=== PATIENT | female | born 2000 | race Caucasian/White ===

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

== ENCOUNTER 2020-03-07 | Emergency (ER) | payer OTHER ==
--- NOTE | 2020-03-07 02:38 | ED Physician Documentation ---
History of Present Illness - Stated complaint Stated Complaint: DIZZY - Chief complaint Chief Complaint: Neuro - History obtained from History obtained from: Patient - Additonal information Additional information: Patient comes emergency department chief complaint of dizziness and I am afraid I have Covid. She states that she has had some nausea and intermittent episodes of dizziness today. She states it feels like a heavy, tense feeling in the front of her head, and she feels a brief sensation of lightheadedness and slight spinning. Patient denies any vomiting. She states that she has not had any fevers or chills. She states her looked up dizziness and found that it could be a sign of Covid and so she decided to come in. She denies cough, shortness of breath, or chest pain. The patient does smoke. She states she does not sleep very well and often goes to bed late. She denies any other complaints at this time. Review of Systems Ten Systems: 10 systems reviewed and negative Constitutional: reports: Reviewed and negative Eyes: reports: Reviewed and negative Ears: reports: Reviewed and negative Nose: reports: Reviewed and negative Throat: reports: Reviewed and negative Cardiac: reports: Reviewed and negative Respiratory: reports: Reviewed and negative GI: reports: Nausea. 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 Psych: Anxiety - Past Surgical History Past Surgical History: Yes Ortho: Other - Present Medications Home Medications: Ambulatory Orders Medication Instructions Recorded Confirmed No Known Home Medications 03/07/20 03/07/20 - Allergies Allergies/Adverse Reactions: Allergies Allergy/AdvReac Type Severity Reaction Status Date / Time No Known Drug Allergies Allergy Verified 03/07/20 01:51 - Social History Does the pt smoke?: Yes Smoking Status: Current every day smoker Does the pt drink ETOH?: Yes Does the pt have substance abuse?: No - Immunizations Immunizations are current?: Yes - POLST Patient has POLST: No PD ED PE NORMAL - Vitals Vital signs reviewed: Yes - General General: Alert and oriented X 3, No acute distress - HEENT HEENT: Atraumatic, PERRL, EOMI, Moist mucous membranes - Neck Neck: Supple, no meningeal sign - Cardiac Cardiac: RRR, No murmur, Strong equal pulses - Respiratory Respiratory: No respiratory distress, Clear bilaterally - Abdomen Abdomen: Soft, Non tender, Non distended - Derm Derm: Warm and dry - Extremities Extremities: No deformity - Neuro Neuro: Alert and oriented X 3 - Psych Psych: Normal mood, Normal affect Results - Vitals Vitals: Vital Signs - 24 hr 03/07/20 01:40 Temperature 36.6 C Heart Rate 109 H Respiratory 16 Rate Blood Pressure 123/74 O2 Saturation 97 Oxygen O2 Source Room air PD MEDICAL DECISION MAKING - ED course Complexity details: considered differential, d/w patient ED course: The patient was very well-appearing, and I did discuss with her that the likelihood of her symptoms being cysts can Walter to Covid is very low. The patient has no cough, fever, shortness of breath, myalgias, or any symptoms of illness, other than the nausea and occasional episodes of dizziness. She has had quite a bit of anxiety lately and has had a lot of tension in her neck and tension headaches, and we have discussed ways to combat this at home. In particular, the patient has quite a few unhealthy lifestyle habits, and we have discussed improving sleep hygiene, nutritional intake, water intake, and exercise, as well as quitting smoking. I discussed with the patient that we could do blood work here, though I suspect it will be unremarkable. The patient has declined this and would like to go home and get some sleep. We have discussed follow-up with her primary care physician, as well as the usual indications for return. Departure - Departure Disposition: 01 Home, Self Care Clinical Impression: Dizziness Condition: Stable Instructions: ED Dizziness [facility] Comments: There is no sign of an emergent condition today. We have discussed getting blood work done, and you have opted to wait on this, which is fine. To help with your headaches, dizziness, and anxiety, please focus on taking good care of yourself and paying attention to basic health principles. These include getting to bed early to improve the restorative nature of your sleep; eating lesser amounts of processed foods and more fruits and vegetables with a high nutrient content; getting some exercise each day, even if it is a 30-minute walk; drinking plenty of water, ideally 8 to 10 cups/day; and quitting smoking. Finding other constructive outlets for stress and anxiety will help you to not rely on smoking to deal with stress. If you have further concerns, you may follow-up with your primary care physician. If you develop fever, cough, shortness of breath and body aches, these are potential signs of Covid, and should be further evaluated. There is no evidence that you have Covid at this point in time.
== END 2020-03-07 02:46 | disposition home or self-care (01) ==
CPT/HCPCS: 99281; 99284

== ENCOUNTER 2020-03-27 00:12 | Emergency (ER) | payer OTHER ==
[2020-03-27 00:27] VITALS: BP 112/62
[2020-03-27 00:35] LABS: MUDS CUTOFF CONCENTRATIONS CUTOFF CONC BELOW:
[2020-03-27 00:36] LABS: BILIRUBIN,URINE NEGATIVE (NEGATIVE); GLUCOSE, URINE (UA) NEGATIVE (NEGATIVE); KETONES,URINE (UA) NEGATIVE (NEGATIVE); LEUKOCYTE ESTERASE, URINE NEGATIVE (NEGATIVE); NITRITE,URINE NEGATIVE (NEGATIVE); OCCULT BLOOD,URINE NEGATIVE (NEGATIVE); PROTEIN,URINE NEGATIVE (NEGATIVE); UROBILINOGEN,URINE 1 (NORMAL) E.U./dL (NORMAL)
[2020-03-27 00:39] LABS: CLARITY,URINE CLEAR (CLEAR)
[2020-03-27 00:40] LABS: HCG UR QUAL POSITIVE
[2020-03-27 00:48] LABS: AMPHETAMINE SCREEN,URINE NEGATIVE (NEGATIVE); BENZODIAZEPINES SCREEN, URINE NEGATIVE (NEGATIVE); COCAINE SCREEN URINE NEGATIVE (NEGATIVE); METHADONE SCREEN, URINE NEGATIVE (NEGATIVE); METHAMPHETAMINES SCREEN, URINE NEGATIVE (NEGATIVE); OPIATE SCREEN, URINE NEGATIVE (NEGATIVE); OXYCODONE SCREEN, URINE NEGATIVE (NEGATIVE); PROPOXYPHENE SCREEN, URINE NEGATIVE (NEGATIVE); TRICYCLIC ANTIDEPRESSANT,URINE NEGATIVE (NEGATIVE)
[2020-03-27 01:14] LABS: BASOPHILS # (AUTO) 0.1 10^3/uL (0.0-0.1); BASOPHILS % (AUTO) 0.4 %; EOSINOPHILS # (AUTO) 0.2 10^3/uL (0.0-0.7); HGB - HEMOGLOBIN 12.5 g/dL (12.0-16.0); LYMPHOCYTES # (AUTO) 2.4 10^3/uL (1.5-3.5); LYMPHOCYTES % (AUTO) 20.7 %; MEAN CORPUSCULAR HEMOGLOBIN 27.7 pg (27.0-31.0); MEAN PLATELET VOLUME 9.3 fL (7.9-10.8); MONOCYTES % (AUTO) 8.6 %; PLT - PLATELET COUNT 319 10^3/uL (130-450); RED BLOOD COUNT 4.51 10^6/uL (4.20-5.40); WHITE BLOOD COUNT 11.8 x10^3/uL (4.8-10.8)
--- NOTE | 2020-03-27 01:15 | ED Physician Documentation ---
PD HPI MHE - Stated complaint Stated Complaint: SI - Chief complaint Chief Complaint: MHE - History obtained from History obtained from: Patient - History of Present Illness Primary symptom: Depression, Anxiety Timing - onset: How many months ago (4) Contributing factors: Family, Sig other, Other () Similar symptoms before: Diagnosis (anxiety and depression) Recently seen: Not recently seen - Additional information Additional information: 19-year-old 2 para 0 female who has had a therapeutic last summer has a history of anxiety and depression and she has had increase in her anxiety recently and her depression. She denies suicidal or homicidal ideation. She does feel that she does not need to live anymore because nobody wants her. She is currently about 6 weeks with her second and she gives a history that she is living in a trailer with her boyfriend on her parents property. She feels that her stepfather is irritated that she is around at all and her mother does not treat her well either. She states that her mother does like her boyfriend and is supportive of their relationship and the stepfather is irritated. She relates that her boyfriend has had some trouble with meth and he has cheated on her. She is still invested in the relationship. She indicates that she feels the this past summer was terminated at the insistence of her family and she feels she is depressed and anxious about this. Review of Systems Constitutional: denies: Fever Eyes: denies: Decreased vision Ears: reports: Ear pain Nose: reports: Congestion Throat: denies: Sore throat Cardiac: denies: Palpitations Respiratory: denies: Dyspnea, Cough GI: denies: Abdominal Pain, Nausea, Vomiting, Constipation, Diarrhea : denies: Dysuria, Frequency Skin: denies: Rash Musculoskeletal: denies: Neck pain, Back pain, Extremity pain Neurologic: denies: Generalized weakness, Focal weakness, Numbness Psychiatric: reports: Depressed, Anxiety. 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 Psych: Anxiety - Past Surgical History Past Surgical History: Yes Ortho: Other - Present Medications Home Medications: Ambulatory Orders Medication Instructions Recorded Confirmed No Known Home Medications 03/07/20 03/27/20 - Allergies Allergies/Adverse Reactions: Allergies Allergy/AdvReac Type Severity Reaction Status Date / Time No Known Drug Allergies Allergy Verified 03/27/20 00:17 - Social History Does the pt smoke?: Yes Smoking Status: Current every day smoker Does the pt drink ETOH?: Yes Does the pt have substance abuse?: No - Immunizations Immunizations are current?: Yes - POLST Patient has POLST: No PD ED PE NORMAL - Vitals Vital signs reviewed: Yes (tachy ) - General General: Alert and oriented X 3, No acute distress, Well developed/nourished - HEENT HEENT: Atraumatic, PERRL, EOMI, Ears normal, Moist mucous membranes, Pharynx benign, Dentition benign - Neck Neck: Supple, no meningeal sign, No bony TTP - Cardiac Cardiac: RRR, No murmur - Respiratory Respiratory: No respiratory distress, Clear bilaterally - Abdomen Abdomen: Normal bowel sounds, Soft, Non tender, Non distended - Back Back: No CVA TTP, No spinal TTP - Derm Derm: Normal color, Warm and dry, No rash - Extremities Extremities: No deformity, No edema - Neuro Neuro: Alert and oriented X 3, final inspector and tester 2-12 intact, No motor deficit, No sensory deficit, Normal speech Eye Opening: Spontaneous Motor: Obeys Commands Verbal: Oriented GCS Score: 15 - Psych Psych: Normal mood, Normal affect Results - Vitals Vitals: Vital Signs - 24 hr 03/27/20 03/27/20 00:17 03:12 Temperature 36.8 C Heart Rate 117 H Respiratory 20 18 Rate Blood Pressure 112/62 O2 Saturation 98 100 Oxygen O2 Source Room air - Labs Labs: Laboratory Tests 03/27/20 03/27/20 03/27/20 00:24 00:24 01:11 WBC 11.8 H RBC 4.51 Hgb 12.5 Hct 37.9 MCV 84.0 MCH 27.7 MCHC 33.0 RDW 13.0 Plt Count 319 MPV 9.3 Neut # (Auto) 8.0 H Lymph # (Auto) 2.4 [place] # (Auto) 1.0 Eos # (Auto) 0.2 Baso # (Auto) 0.1 Absolute Nucleated RBC 0.00 Nucleated RBC % 0.0 Sodium Potassium Chloride Carbon Dioxide Anion Gap BUN Creatinine Estimated GFR (MDRD) Glucose Calcium Total Bilirubin AST ALT Alkaline Phosphatase Total Protein Albumin Globulin Albumin/Globulin Ratio Lipase HCG, Quant Urine Color YELLOW Urine Clarity CLEAR Urine pH 6.0 Ur Specific [place] 1.020 Urine Protein NEGATIVE Urine Glucose (UA) NEGATIVE Urine Ketones NEGATIVE Urine Occult Blood NEGATIVE Urine Nitrite NEGATIVE Urine Bilirubin NEGATIVE Urine Urobilinogen 1 (NORMAL) Ur Leukocyte Esterase NEGATIVE Ur Microscopic Review NOT INDICATED Urine Culture Comments NOT INDICATED Urine HCG, Qual POSITIVE Urine Opiates Screen NEGATIVE Ur Oxycodone Screen NEGATIVE Urine Methadone Screen NEGATIVE Ur Propoxyphene Screen NEGATIVE Ur Barbiturates Screen NEGATIVE Ur Tricyclics Screen NEGATIVE Ur Phencyclidine Scrn NEGATIVE Ur Amphetamine Screen NEGATIVE U Methamphetamines Scrn NEGATIVE U Benzodiazepines Scrn NEGATIVE Urine Cocaine Screen NEGATIVE U Cannabinoids Screen NEGATIVE Ethyl Alcohol 03/27/20 03/27/20 03/27/20 01:11 01:11 01:11 WBC RBC Hgb Hct MCV MCH MCHC RDW Plt Count MPV Neut # (Auto) Lymph # (Auto) [place] # (Auto) Eos # (Auto) Baso # (Auto) Absolute Nucleated RBC Nucleated RBC % Sodium 138 Potassium 3.5 Chloride 104 Carbon Dioxide 22 Anion Gap 12.0 BUN 15 Creatinine 0.8 Estimated GFR (MDRD) 92 Glucose 100 Calcium 8.9 Total Bilirubin 2.0 H AST 23 ALT 27 Alkaline Phosphatase 59 Total Protein 7.3 Albumin 4.0 Globulin 3.3 Albumin/Globulin Ratio 1.2 Lipase 32 HCG, Quant 1833.00 Urine Color Urine Clarity Urine pH Ur Specific [place] Urine Protein Urine Glucose (UA) Urine Ketones Urine Occult Blood Urine Nitrite Urine Bilirubin Urine Urobilinogen Ur Leukocyte Esterase Ur Microscopic Review Urine Culture Comments Urine HCG, Qual Urine Opiates Screen Ur Oxycodone Screen Urine Methadone Screen Ur Propoxyphene Screen Ur Barbiturates Screen Ur Tricyclics Screen Ur Phencyclidine Scrn Ur Amphetamine Screen U Methamphetamines Scrn U Benzodiazepines Scrn Urine Cocaine Screen U Cannabinoids Screen Ethyl Alcohol < 5.0 PD MEDICAL DECISION MAKING - ED course Complexity details: reviewed results, re-evaluated patient, considered differential, d/w patient ED course: 19-year-old female presents to the emergency department with depression and anxiety and she denies any suicidal or homicidal ideation. She has a stressful living situation at home has a recent therapeutic and post depression as well as regret and she is currently . She does have an appointment to see her MANUFACTURING COORDINATOR doctor and her quantitative hCG is still low. It is at 1833 today. The patient initially consents to the idea of doing telepsych to consider recommendations for medications and counseling. The patient was in the emergency department for several hours and then decided she had to leave urgently to attend to things at home. She indicates she will follow up with her primary at her MANUFACTURING COORDINATOR doctor for referral to counseling. The patient appears safe for discharge. She is voluntary. Departure - Departure Disposition: Home, Self Care Clinical Impression: Anxiety Depression Qualifiers: Depression Type: depression during Trimester: first trimester Qualified Code(s): O99.341 - Other mental disorders complicating , first trimester Condition: Stable Instructions: ED Stress React, ED Depression, ED Panic Attack Follow-Up: Wilbert Brian ARNP [Primary Care Provider] - Comments: Follow-up with your MANUFACTURING COORDINATOR doctor as previously planned. With depression and anxiety especially during treatment options are less and counselling is recommended. Ask your primary care doctor and or your MANUFACTURING COORDINATOR doctor to recommend a counsellor. Discharge Date/Time: 03/27/20 03:12
[2020-03-27 01:27] LABS: ALBUMIN/GLOBULIN RATIO 1.2 (1.0-2.2); CALCIUM 8.9 mg/dL (8.5-10.3); CREATININE 0.8 mg/dL (0.4-1.0); TOTAL PROTEIN 7.3 g/dL (6.7-8.2)
== END 2020-03-27 03:12 | disposition home or self-care (01) ==
LOC: ED 00:12
DX: O99.341 Other mental disorders complicating pregnancy, first trimester (principal); F41.9 Anxiety disorder, unspecified; F32.9 Major depressive disorder, single episode, unspecified; O99.331 Smoking (tobacco) complicating pregnancy, first trimester; F17.200 Nicotine dependence, unspecified, uncomplicated; Z3A.01 Less than 8 weeks gestation of pregnancy
CPT/HCPCS: 36415; 80053; 80306; 80320; 81001; 81003; 81025; 83690; 84702; 85025; 87086; 99283

== ENCOUNTER 2020-04-03 00:55 | Emergency (ER) | payer OTHER ==
--- NOTE | 2020-04-03 01:49 | ED Physician Documentation ---
History of Present Illness - Stated complaint Stated Complaint: DIZZINESS/F - Chief complaint Chief Complaint: General - History obtained from History obtained from: Patient - History of Present Illness Timing: How many hours ago (1) Pain level now: 0 Improved by: no ameliorating factors Worsened by: no exacerbating factors - Additonal information Additional information: patient was T+R from ED several hours ago after w/u for vaginal bleeding in . She is with a previous elective , currently approximately 6 weeks . Her testing at included normal CBC, BMP, UA, LFT (except 1.9 bilirubin). Blood type B+. US showed "intrauterine fluid collection, cyst or early gestational sac versus pseudogestational sac" (notes from ED visit faxed to me and reviewed by me). Discharged with threatened . Patient says she was instructed to return to ED if she developed lightheadedness. 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 She has not had worsening vaginal bleeding or worsening cramping pain. Review of Systems Constitutional: denies: Fever, Chills, Sweats Cardiac: reports: Reviewed and negative Respiratory: reports: Reviewed and negative : reports: Vaginal bleeding, Now EGA (6 weeks although US from ED discordant with this). 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, Other : None HEENT: None Psych: Anxiety Musculoskeletal: None Derm: None Other Past Medical History: Frequent bacterial vaginosis - Past Surgical History Past Surgical History: Yes Ortho: Other - Present Medications Home Medications: Ambulatory Orders Medication Instructions Recorded Confirmed No Known Home Medications 03/07/20 04/03/20 - Allergies Allergies/Adverse Reactions: Allergies Allergy/AdvReac Type Severity Reaction Status Date / Time No Known Drug Allergies Allergy Verified 04/03/20 01:12 - Social History Does the pt smoke?: No Smoking Status: Former smoker Does the pt drink ETOH?: Yes Does the pt have substance abuse?: No - Immunizations Immunizations are current?: Yes - POLST Patient has POLST: No PD ED PE NORMAL - Vitals Vital signs reviewed: Yes - General General: Alert and oriented X 3, No acute distress, Well developed/nourished - HEENT HEENT: Moist mucous membranes - Cardiac Cardiac: RRR, No murmur - Respiratory Respiratory: No respiratory distress, Clear bilaterally - Abdomen Abdomen: Soft, Non tender Results - Vitals Vitals: Vital Signs - 24 hr 04/03/20 04/03/20 01:08 02:30 Temperature 37.1 C 36.8 C Heart Rate 99 78 Respiratory 18 16 Rate Blood Pressure 115/59 L 112/60 O2 Saturation 98 100 Oxygen O2 Source Room air PD MEDICAL DECISION MAKING - ED course Complexity details: reviewed old records (records from ED faxed and reviewed by me. ), considered differential, d/w patient ED course: patient is in NAD. she has normal vital signs, unremarkable exam, and had w/u several hours ago as I noted in HPI. Repeat testing not indicated at this time. She does not describe vertigo and no elements of H+P suggest dehydration. Patient is comfortable with no testing at this time as well as d/c home, will return if worse, will f/u with her darkroom technician next available appointment Departure - Departure Disposition: Home, Self Care Clinical Impression: Lightheadedness Condition: Good Instructions: ED Dizziness UKO Follow-Up: Wilbert Brian ARNP [Primary Care Provider] - Discharge Date/Time: 04/03/20 02:37
[2020-04-03 02:39] VITALS: BP 112/60
== END 2020-04-03 02:37 | disposition home or self-care (01) ==
LOC: ED 00:55
DX: O99.891 Other specified diseases and conditions complicating pregnancy (principal); R42 Dizziness and giddiness; Z3A.01 Less than 8 weeks gestation of pregnancy; Z87.891 Personal history of nicotine dependence
CPT/HCPCS: 99281; 99284

== ENCOUNTER 2021-06-24 16:05 | Emergency (ER) | payer OTHER ==
[2021-06-24 16:11] VITALS: BP 143/72
--- NOTE | 2021-06-24 16:15 | ED Physician Documentation ---
PD HPI UPPER EXT INJURY - Stated complaint Stated Complaint: L HAND PAIN - Chief complaint Chief Complaint: Trauma Ext - History obtained from History obtained from: Patient - Additonal information Additional information: 20-year-old right-handed woman fell while playing with a friend a few days ago and jammed her left pinky finger and has deformity and limited range of motion. Declines pain medication. 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, Other : None HEENT: None Psych: Anxiety Musculoskeletal: None Derm: None - Past Surgical History Past Surgical History: Yes Ortho: Other - Present Medications Home Medications: Ambulatory Orders Medication Instructions Recorded Confirmed No Known Home Medications 03/07/20 06/24/21 - Allergies Allergies/Adverse Reactions: Allergies Allergy/AdvReac Type Severity Reaction Status Date / Time No Known Drug Allergies Allergy Verified 06/24/21 16:08 - Social History Does the pt smoke?: Yes Smoking Status: Current every day smoker Does the pt drink ETOH?: Yes Does the pt have substance abuse?: No - Immunizations Immunizations are current?: No Immunizations: Other immun not current - POLST Patient has POLST: No PD ED PE NORMAL - Vitals Vital signs reviewed: Yes - General General: Alert and oriented X 3, No acute distress - Extremities Extremities: Other (Does appear that there is slight rotational and medial deformity of the left pinky finger near the proximal phalanx with limited range of motion due to pain. Normal neurovascular function at the tip.) - Neuro Neuro: Alert and oriented X 3, Normal speech - Psych Psych: Normal mood, Normal affect Results - Vitals Vitals: Vital Signs - 24 hr 06/24/21 16:09 Temperature 36.7 C Heart Rate 104 H Respiratory 16 Rate Blood Pressure 143/72 H O2 Saturation 99 Oxygen O2 Source Room air - Rads (name of study) Three-view x-ray left small finger is unremarkable Radiology: EMP read contemporaneously Procedures - General procedure General procedure: Left fourth and fifth fingers were nathan taped in standard fashion by me for comfort Departure - Departure Disposition: 01 Home, Self Care Clinical Impression: Sprain of left little finger Qualifiers: Encounter type: initial encounter Sprain of finger site: metacarpophalangeal joint Qualified Code(s): S63.657A - Sprain of metacarpophalangeal joint of left little finger, initial encounter Condition: Good Record reviewed to determine appropriate education?: Yes Instructions: ED Sprain Finger Comments: Tylenol or ibuprofen as needed for pain. Return for new or worsening symptoms. Follow-up with your physician if not better in a week. Discharge Date/Time: 06/24/21 16:33
--- OUTSIDE RECORDS SUMMARY | 2021-06-24 16:36 | EXTERNAL MEDICAL SUMMARY RPT | Continuity of Care Document ---
:2000 Author Organization [place] Address [address] [place] [address] Phone Care Team Providers Name Role Phone Roc Unavailable Unavailable Allergies No information. Encounters No information. Medications date description facility [id number] Omeprazole 40 MG Enteric Coated Capsule [facility] Problems date description facility [id number] Left upper quadrant pain [facility] al [id number] Gastro-esophageal reflux disease withou t esophagitis [facility] [id number] Epigastric pain [facility] Procedures date description facility [id number] General Physician [facility] [id number] [facility] [id number] Diagnosis [facility] Results No information. Vital Signs date measurement value source 20210404 weight_standard 65.77 lb 20210404 weight_metric 29.83 kg 20210404 height_standard 61 in 20210404 height_metric 154.94 cm 20210404 heart_rate 78 /min 20210404 BP_systolic 96 mm[Hg] 20210404 BP_diastolic 64 mm[Hg] 20210404 BMI 27.3 kg/m2
--- NOTE | 2021-06-24 17:14 | XRAY Report ---
PROCEDURE: Finger(s) LT INDICATIONS: jammed finger TECHNIQUE: AP hand, 2 views of the fifth finger(s) acquired. COMPARISON: None FINDINGS: Bones: No fractures or dislocations. No suspicious bony lesions. Soft tissues: No suspicious soft tissue calcifications. Soft tissue swelling noted. No radiopaque f oreign body. IMPRESSION: Soft tissue swelling without fracture or foreign body Reviewed by: Jhonathan Amanda MD on 06/24/2021 4:13 PM AKDT Approved by: Jhonathan Amanda MD on 06/24/2021 4:13 PM AKDT Station ID: [id number]
== END 2021-06-24 16:33 | disposition home or self-care (01) ==
LOC: ED 16:05
DX: S63.657A Sprain of metacarpophalangeal joint of left little finger, initial encounter (principal); W23.0XXA Caught, crushed, jammed, or pinched between moving objects, initial encounter; Y93.89 Activity, other specified; F17.200 Nicotine dependence, unspecified, uncomplicated
CPT/HCPCS: 99282; 99283

== ENCOUNTER 2022-03-29 21:26 | Emergency (ER) | payer MEDICAID, OTHER ==
--- OUTSIDE RECORDS SUMMARY | 2022-03-29 21:41 | EXTERNAL MEDICAL SUMMARY RPT | Continuity of Care Document ---
:2000 Author Organization [facility] Address [address] [place] [address] Phone Care Team Providers Name Role Phone Wilbert Brian Unavailable Unavailable Allergies and Intolerances date description facility type (no date) [facility] (unknown) (no date) metronidazole [facility] (unknown) Encounters No information. Functional Status No information. Immunizations No information. Medications date description facility 2022-01-03 00:00 [facility] 2022-01-04 00:00 [facility] Problems date description facility 2022-01-02 00:00 Patient left without being seen [facility] 2022-01-04 00:00 Cellulitis of right hand [facility] 2022-02-02 00:00 Sinus arrhythmia [facility] 2022-02-05 17:45 [facility] 2022-02-05 23:34 Other [facility] 2022-02-07 11:57 Palpitations [facility] 2022-02-07 12:00 Palpitations [facility] 2022-02-07 12:00 Other specified [facility] Procedures date description facility 2022-02-01 00:00 X-ray of chest, single view [facility] Results/Labs test date author facility value unit interpret ation Result panel 1 (unknown) (no date) (unknown) [facility] Result panel 2 (unknown) (no date) (unknown) [facility]) Result panel 3 (unknown) (no date) (unknown) [facility] Result panel 4 (unknown) (no date) (unknown) [facility]) Result panel 5 (unknown) (no date) (unknown) [facility] Result panel 6 (unknown) (no date) (unknown[facility]) Result panel 7 (unknown) (no date) (unknown[facility]) Result panel 8 (unknown) (no date) (unknown[facility]) Result panel 9 (unknown) (no date) (unknown[facility]) Result panel 10 (unknown) (no date) (unknown[facility]) Result panel 11 (unknown) (no date) (unknown[facility]) Result panel 12 (unknown) (no date) (unknown[facility]) Result panel 13 (unknown) (no date) (unknown[facility]) Result panel 14 (unknown) (no date) (unknown[facility]) Result panel 15 (unknown) (no date) (unknown[facility]) Result panel 16 (unknown) (no date) (unknown[facility]) Result panel 17 (unknown) (no date) (unknown[facility]) Result panel 18 (unknown) (no date) (unknown[facility]) Result panel 19 (unknown) (no date) (unknown[facility]) Result panel 20 (unknown) (no date) (unknown[facility]) Result panel 21 (unknown) (no date) (unknown[facility]) Result panel 22 (unknown) (no date) (unknown[facility]) Result panel 23 (unknown) (no date) (unknown[facility]) Result panel 24 (unknown) (no date) (unknown[facility]) Result panel 25 (unknown) (no date) (unknown[facility]) Result panel 26 (unknown) (no date) (unknown[facility]) Result panel 27 (unknown) (no date) (unknown[facility]) Result panel 28 (unknown) (no date) (unknown[facility]) Result panel 29 (unknown) (no date) (unknown[facility]) Result panel 30 (unknown) (no date) (unknown[facility]) Result panel 31 (unknown) (no date) (unknown[facility]) Result panel 32 (unknown) (no date) (unknown[facility]) Result panel 33 (unknown) (no date) (unknown[facility]) Result panel 34 (unknown) (no date) (unknown[facility]) Result panel 35 (unknown) (no date) (unknown[facility]) Result panel 36 (unknown) (no date) (unknown[facility]) Result panel 37 (unknown) (no date) (unknown[facility]) Result panel 38 (unknown) (no date) (unknown[facility]) Result panel 39 (unknown) (no date) (unknown[facility]) Result panel 40 (unknown) (no date) (unknown[facility]) Result panel 41 (unknown) (no date) (unknown[facility]) Result panel 42 (unknown) (no date) (unknown[facility]) Result panel 43 (unknown) (no date) (unknown[facility]) Result panel 44 (unknown) (no date) (unknown[facility]) Result panel 45 (unknown) (no date) (unknown[facility]) Result panel 46 (unknown) (no date) (unknown[facility]) Result panel 47 (unknown) (no date) (unknown[facility]) Result panel 48 (unknown) (no date) (unknown[facility]) Result panel 49 (unknown) (no date) (unknown[facility]) Result panel 50 (unknown) (no date) (unknown[facility]) Result panel 51 (unknown) (no date) (unknown[facility]) Result panel 52 (unknown) (no date) (unknown[facility]) Result panel 53 (unknown) (no date) (unknown[facility]) Result panel 54 (unknown) (no date) (unknown[facility]) Result panel 55 (unknown) (no date) (unknown[facility]) Result panel 56 (unknown) (no date) (unknown[facility]) Result panel 57 (unknown) (no date) (unknown[facility]) Result panel 58 (unknown) (no date) (unknown[facility]) Result panel 59 (unknown) (no date) (unknown[facility]) Result panel 60 (unknown) (no date) (unknown[facility]) Result panel 61 (unknown) (no date) (unknown[facility]) Result panel 62 (unknown) (no date) (unknown[facility]) Result panel 63 (unknown) (no date) (unknown[facility]) Result panel 64 (unknown) (no date) (unknown[facility]) Result panel 65 (unknown) (no date) (unknown[facility]) Result panel 66 (unknown) (no date) (unknown[facility]) Result panel 67 (unknown) (no date) (unknown[facility]) Result panel 68 (unknown) (no (unknown) (unknown) (no value) (units (unk nown) date) unknown) (unknown) (no (unknown) (unknown) (DME) [facility] (units (u nknown) date) unknown) (unknown) (no (unknown) (unknown) ) (units (unkno wn) date) unknown) (unknown) (no (unknown) (unknown) *Continue to take (units (unknown) date) medications as unknown) directed (unknown) (no (unknown) (unknown) *Follow up with (units (unknown) date) your primary care unknown) provider in 2-3 days or call [phone] (unknown) (no (unknown) (unknown) *Return to ER if (units (unknown) date) you should have unknown) increased redness pain swelling fever chills (unknown) (no (unknown) (unknown) *What to do: At (units (unknown) date) this time he might unknown) have a very slight infection. Continue with (unknown) (no (unknown) (unknown) *You have been (units (unknown) date) diagnosed with unknown) cellulitis right hand (unknown) (no (unknown) (unknown) 01/03/22 (units (unkno wn) date) unknown) (unknown) (no (unknown) (unknown) 23:25 (units (unkno wn) date) unknown) (unknown) (no (unknown) (unknown) 40 mg PO BID Qty: (units (unknown) date) 60 0RF unknown) (unknown) (no (unknown) (unknown) 500 mg PO BID 5 (units (unknown) date) Days Qty: 10 0RF unknown) (unknown) (no (unknown) (unknown) 8 point review of (units (unknown) date) systems is unknown) negative except for those stated above and HPI (unknown) (no (unknown) (unknown) Abdominal pain (units (unknown) date) unknown) (unknown) (no (unknown) (unknown) Abdominal pain, (units (unknown) date) left upper unknown) quadrant (unknown) (no (unknown) (unknown) Activity (units (unkno wn) date) Restrictions/Addit unknown) ional Instructions: (unknown) (no (unknown) (unknown) Age/Sex: 21 / F (units (unknown) date) unknown) (unknown) (no (unknown) (unknown) Allergies (units (unkn own) date) unknown) (unknown) (no (unknown) (unknown) Allergy/AdvReac (units (unknown) date) Type Severity unknown) Reaction Status Date / Time (unknown) (no (unknown) (unknown) Anxiety (units (unkno wn) date) unknown) (unknown) (no (unknown) (unknown) As directed (units (un known) date) unknown) (unknown) (no (unknown) (unknown) Blood Pressure (units (unknown) date) 119/68 01/03/22 unknown) 23:25 (unknown) (no (unknown) (unknown) Blood Pressure (units (unknown) date) 119/68 unknown) (unknown) (no (unknown) (unknown) CARDIOVASCULAR: (units (unknown) date) Denies chest pain, unknown) palpitations (unknown) (no (unknown) (unknown) CARDIOVASCULAR: (units (unknown) date) peripheral pulses unknown) in tact, cap refill <2 sec (unknown) (no (unknown) (unknown) Cellulitis of (units ( unknown) date) right hand unknown) (unknown) (no (unknown) (unknown) Chief complaint: (units (unknown) date) Skin/Abscess/Forei unknown) gn Body (unknown) (no (unknown) (unknown) Clinical (units (unkno wn) date) Impression: unknown) (unknown) (no (unknown) (unknown) Constipation (units (u nknown) date) unknown) (unknown) (no (unknown) (unknown) Course (units (unkno wn) date) unknown) (unknown) (no (unknown) (unknown) : 2000 (units (unknown) date) Acct:[id number] unknown) (unknown) (no (unknown) (unknown) Date of Service: (units (unknown) date) 01/03/22 unknown) (unknown) (no (unknown) (unknown) Departure (units (unkn own) date) unknown) (unknown) (no (unknown) (unknown) Depression (units (unk nown) date) unknown) (unknown) (no (unknown) (unknown) Discharge Plan (units (unknown) date) unknown) (unknown) (no (unknown) (unknown) ER Physician: (units ( unknown) date) Rula Uriostegui unknown) D.O. (unknown) (no (unknown) (unknown) EXTREMITIES: (units (u nknown) date) Normal range of unknown) motion, no clubbing or edema. Neurovascularly (unknown) (no (unknown) (unknown) Emergency Report (units (unknown) date) unknown) (unknown) (no (unknown) (unknown) Epigastric (units (unk nown) date) abdominal pain unknown) (unknown) (no (unknown) (unknown) Exam (units (unkno wn) date) unknown) (unknown) (no (unknown) (unknown) Folliculitis (units (u nknown) date) unknown) (unknown) (no (unknown) (unknown) GASTROINTESTINAL: (units (unknown) date) Denies nausea, unknown) vomiting (unknown) (no (unknown) (unknown) GENERAL: Denies (units (unknown) date) chills,fever unknown) (unknown) (no (unknown) (unknown) GENERAL: (units (unkno wn) date) Well-appearing, unknown) well-nourished and in no acute distress. (unknown) (no (unknown) (unknown) GERD (units (unkno wn) date) (gastroesophageal unknown) reflux disease) (unknown) (no (unknown) (unknown) General (units (unkno wn) date) unknown) (unknown) (no (unknown) (unknown) HEENT: Denies (units ( unknown) date) throat pain unknown) (unknown) (no (unknown) (unknown) HPI - (units (unkno wn) date) Skin/Abscess/Forei unknown) gn Bdy (unknown) (no (unknown) (unknown) HPI narrative: (units (unknown) date) unknown) (unknown) (no (unknown) (unknown) History of (units (unk nown) date) Present Illness unknown) (unknown) (no (unknown) (unknown) Initial Vital (units ( unknown) date) Signs unknown) (unknown) (no (unknown) (unknown) Initial Vital (units ( unknown) date) Signs: unknown) (unknown) (no (unknown) (unknown) Injury of right (units (unknown) date) hand unknown) (unknown) (no (unknown) (unknown) Instructions: DI (units (unknown) date) for Cellulitis -- unknown) Adult (unknown) (no (unknown) (unknown) [facility] (units (unknown) date) [address] unknown) [place] [address] (unknown) (no (unknown) (unknown) Keflex 500 mg (units ( unknown) date) twice a day for 5 unknown) days--> rite-aid in 0 carbon (unknown) (no (unknown) (unknown) Limitations: no (units (unknown) date) limitations unknown) (unknown) (no (unknown) (unknown) [id number] (units (unk nown) date) unknown) (unknown) (no (unknown) (unknown) MDM - (units (unkno wn) date) Skin/Abscess/Forei unknown) gn Bdy (unknown) (no (unknown) (unknown) MDM Narrative (units ( unknown) date) unknown) (unknown) (no (unknown) (unknown) MUSCULOSKELETAL: (units (unknown) date) Denies extremity unknown) pain, injury (unknown) (no (unknown) (unknown) Medical History (units (unknown) date) (Reviewed 01/04/22 unknown) @ 01:51 by Rula Uriostegui DO) (unknown) (no (unknown) (unknown) Medical decision (units (unknown) date) making narrative: unknown) (unknown) (no (unknown) (unknown) Medication (units (unk nown) date) Instructions unknown) Recorded (unknown) (no (unknown) (unknown) Mode of arrival: (units (unknown) date) Ambulatory unknown) (unknown) (no (unknown) (unknown) NEUROLOGIC: (units (un known) date) Denies weakness, unknown) dizziness, headache, numbness (unknown) (no (unknown) (unknown) NEUROLOGICAL: (units ( unknown) date) Cranial nerves II unknown) through XII grossly intact. Normal gait and (unknown) (no (unknown) (unknown) Narrative: (units (unk nown) date) unknown) (unknown) (no (unknown) (unknown) Nausea (units (unkno wn) date) unknown) (unknown) (no (unknown) (unknown) New (units (unkno wn) date) unknown) (unknown) (no (unknown) (unknown) No Action (units (unkn own) date) unknown) (unknown) (no (unknown) (unknown) Oxygen Delivery (units (unknown) date) Method 01/03/22 unknown) 23:25 (unknown) (no (unknown) (unknown) Oxygen Delivery (units (unknown) date) Method Room Air unknown) (unknown) (no (unknown) (unknown) PTSD (units (unkno wn) date) (post-traumatic unknown) stress disorder) (unknown) (no (unknown) (unknown) Patient (units (unkno wn) date) Disposition: Home unknown) (unknown) (no (unknown) (unknown) Patient History (units (unknown) date) unknown) (unknown) (no (unknown) (unknown) Patient has (units (un known) date) minimal erythema unknown) looks like it is healing. Will start her on short (unknown) (no (unknown) (unknown) Patient is a (units (u nknown) date) 21-year-old female unknown) who presents with tattoo problem. She says she (unknown) (no (unknown) (unknown) Patient: (units (unkno wn) date) Joan Christy unknown) MR#: (unknown) (no (unknown) (unknown) Prescriptions: (units (unknown) date) unknown) (unknown) (no (unknown) (unknown) Previous Rx's (units ( unknown) date) unknown) (unknown) (no (unknown) (unknown) Pulse Oximetry 98 (units (unknown) date) 01/03/22 23:25 unknown) (unknown) (no (unknown) (unknown) Pulse Oximetry 98 (units (unknown) date) unknown) (unknown) (no (unknown) (unknown) Pulse Rate 88 (units ( unknown) date) 01/03/22 23:25 unknown) (unknown) (no (unknown) (unknown) Pulse Rate 88 (units ( unknown) date) unknown) (unknown) (no (unknown) (unknown) RESPIRATORY: (units (u nknown) date) Denies dyspnea, unknown) cough, wheezing (unknown) (no (unknown) (unknown) RESPIRATORY: No (units (unknown) date) respiratory unknown) distress, speaks in full sentences without (unknown) (no (unknown) (unknown) Referrals: (units (unk nown) date) unknown) (unknown) (no (unknown) (unknown) Related Data (units (u nknown) date) unknown) (unknown) (no (unknown) (unknown) Respiratory Rate (units (unknown) date) 20 01/03/22 23:25 unknown) (unknown) (no (unknown) (unknown) Respiratory Rate (units (unknown) date) 20 unknown) (unknown) (no (unknown) (unknown) Review of Systems (units (unknown) date) unknown) (unknown) (no (unknown) (unknown) Wilbert Brian, (units ( unknown) date) CLEARANCE COORDINATOR [Primary Care unknown) Provider] (unknown) (no (unknown) (unknown) Rx Instructions: (units (unknown) date) unknown) (unknown) (no (unknown) (unknown) SKIN: Right hand (units (unknown) date) tattoo on right unknown) thumb and thenar eminence. Some it is (unknown) (no (unknown) (unknown) SKIN: see HPI (units ( unknown) date) unknown) (unknown) (no (unknown) (unknown) See Rx (units (unkno wn) date) Instructions unknown) .Route .MEDSUPPLY Qty: 1 0RF (unknown) (no (unknown) (unknown) Signed By: (units (unk nown) date) unknown) (unknown) (no (unknown) (unknown) Smoking Status: (units (unknown) date) Former smoker unknown) (unknown) (no (unknown) (unknown) Social History (units (unknown) date) (Reviewed 01/04/22 unknown) @ 01:51 by Rula Uriostegui DO) (unknown) (no (unknown) (unknown) Source: patient (units (unknown) date) unknown) (unknown) (no (unknown) (unknown) [facility] #1 ea (units (u nknown) date) 08/01/21 unknown) (unknown) (no (unknown) (unknown) Stated complaint: (units (unknown) date) right hand tattoo unknown) infected (unknown) (no (unknown) (unknown) Substance Use (units ( unknown) date) Type: does not use unknown) (unknown) (no (unknown) (unknown) Temperature 98.8 (units (unknown) date) F 01/03/22 23:25 unknown) (unknown) (no (unknown) (unknown) Temperature 98.8 (units (unknown) date) F unknown) (unknown) (no (unknown) (unknown) Time Seen by (units (u nknown) date) Provider: 01/04/22 unknown) 01:25 (unknown) (no (unknown) (unknown) Tobacco: How many (units (unknown) date) years used: 5 unknown) (unknown) (no (unknown) (unknown) Vital Signs - 8 (units (unknown) date) hr unknown) (unknown) (no (unknown) (unknown) Vital Signs (units (un known) date) unknown) (unknown) (no (unknown) (unknown) Vital signs: (units (u nknown) date) unknown) (unknown) (no (unknown) (unknown) [or] any new, (units ( unknown) date) worsening or unknown) concerning symptoms (unknown) (no (unknown) (unknown) alcohol intake (units (unknown) date) frequency: unknown) holidays/special occasions only (unknown) (no (unknown) (unknown) alcohol intake: (units (unknown) date) current unknown) (unknown) (no (unknown) (unknown) cephalexin 500 mg (units (unknown) date) capsule 500 mg PO unknown) BID 5 days #10 caps 01/04/22 (unknown) (no (unknown) (unknown) cephalexin 500 mg (units (unknown) date) capsule unknown) (unknown) (no (unknown) (unknown) course of (units (unkn own) date) antibiotics. At unknown) this time no sign of sepsis. (unknown) (no (unknown) (unknown) difficulty (units (unk nown) date) unknown) (unknown) (no (unknown) (unknown) during that time (units (unknown) date) to process her unknown) hand was wiped down with rubbing alcohol many (unknown) (no (unknown) (unknown) had a new tattoo (units (unknown) date) and new shop about unknown) a week ago. She has had many to had to use (unknown) (no (unknown) (unknown) however none of (units (unknown) date) them have done unknown) this. Seems to be peeling is slightly raised (unknown) (no (unknown) (unknown) hydration and (units ( unknown) date) antibiotic unknown) ointment. He can start antibiotics tomorrow. (unknown) (no (unknown) (unknown) intact (units (unkno wn) date) unknown) (unknown) (no (unknown) (unknown) metronidazole (units ( unknown) date) Allergy Mild 'lots unknown) of Verified 10/07/21 22:21 (unknown) (no (unknown) (unknown) mildly (units (unkno wn) date) erythematous. No unknown) fever or chills. No significant swelling. She says (unknown) (no (unknown) (unknown) omeprazole 40 mg (units (unknown) date) capsule,delayed 40 unknown) mg PO BID #60 caps 04/04/21 (unknown) (no (unknown) (unknown) omeprazole 40 mg (units (unknown) date) capsule,delayed unknown) release(DR/EC) (unknown) (no (unknown) (unknown) quit status: (units (u nknown) date) considering unknown) quitting (unknown) (no (unknown) (unknown) release (units (unkno wn) date) unknown) (unknown) (no (unknown) (unknown) second hand (units (un known) date) exposure: Yes unknown) (father's home and when smoking in car w/ windows up. (unknown) (no (unknown) (unknown) slightly raised (units (unknown) date) and peeling there unknown) is minimal erythema surrounding it there is no (unknown) (no (unknown) (unknown) speech. (units (unkno wn) date) unknown) (unknown) (no (unknown) (unknown) streaking there (units (unknown) date) is no pain out of unknown) proportion (unknown) (no (unknown) (unknown) substance use (units ( unknown) date) type: does not use unknown) (unknown) (no (unknown) (unknown) times (units (unkno wn) date) unknown) (unknown) (no (unknown) (unknown) tobacco type: (units ( unknown) date) cigarettes unknown) (unknown) (no (unknown) (unknown) vomiting' (units (unkn own) date) unknown) Result panel 69 (unknown) (no (unknown) (unknown) (no value) (units (unk nown) date) unknown) (unknown) (no (unknown) (unknown) <Electronically (units (unknown) date) signed by Rula Uriostegui D.O.> (unknown) (no (unknown) (unknown) (DME) [facility] (units (u nknown) date) unknown) (unknown) (no (unknown) (unknown) ) (units (unkno wn) date) unknown) (unknown) (no (unknown) (unknown) *Continue to take (units (unknown) date) medications as unknown) directed (unknown) (no (unknown) (unknown) *Follow up with (units (unknown) date) your primary care unknown) provider in 2-3 days or call [phone] (unknown) (no (unknown) (unknown) *Return to ER if (units (unknown) date) you should have unknown) increased redness pain swelling fever chills (unknown) (no (unknown) (unknown) *What to do: At (units (unknown) date) this time he might unknown) have a very slight infection. Continue with (unknown) (no (unknown) (unknown) *You have been (units (unknown) date) diagnosed with unknown) cellulitis right hand (unknown) (no (unknown) (unknown) 02:04 (units (unkno wn) date) unknown) (unknown) (no (unknown) (unknown) 01/03/22 (units (unkno wn) date) unknown) (unknown) (no (unknown) (unknown) 01/04/22 0346 (units ( unknown) date) unknown) (unknown) (no (unknown) (unknown) 23:25 01/04/22 (units (unknown) date) unknown) (unknown) (no (unknown) (unknown) 40 mg PO BID Qty: (units (unknown) date) 60 0RF unknown) (unknown) (no (unknown) (unknown) 500 mg PO BID 5 (units (unknown) date) Days Qty: 10 0RF unknown) (unknown) (no (unknown) (unknown) 8 point review of (units (unknown) date) systems is unknown) negative except for those stated above and HPI (unknown) (no (unknown) (unknown) Abdominal pain (units (unknown) date) unknown) (unknown) (no (unknown) (unknown) Abdominal pain, (units (unknown) date) left upper unknown) quadrant (unknown) (no (unknown) (unknown) Activity (units (unkno wn) date) Restrictions/Addit unknown) ional Instructions: (unknown) (no (unknown) (unknown) Age/Sex: 21 / F (units (unknown) date) unknown) (unknown) (no (unknown) (unknown) Allergies (units (unkn own) date) unknown) (unknown) (no (unknown) (unknown) Allergy/AdvReac (units (unknown) date) Type Severity unknown) Reaction Status Date / Time (unknown) (no (unknown) (unknown) Anxiety (units (unkno wn) date) unknown) (unknown) (no (unknown) (unknown) As directed (units (un known) date) unknown) (unknown) (no (unknown) (unknown) Blood Pressure (units (unknown) date) 119/68 01/03/22 unknown) 23:25 (unknown) (no (unknown) (unknown) Blood Pressure (units (unknown) date) 119/68 117/70 unknown) (unknown) (no (unknown) (unknown) CARDIOVASCULAR: (units (unknown) date) Denies chest pain, unknown) palpitations (unknown) (no (unknown) (unknown) CARDIOVASCULAR: (units (unknown) date) peripheral pulses unknown) in tact, cap refill <2 sec (unknown) (no (unknown) (unknown) Cellulitis of (units ( unknown) date) right hand unknown) (unknown) (no (unknown) (unknown) Chief complaint: (units (unknown) date) Skin/Abscess/Forei unknown) gn Body (unknown) (no (unknown) (unknown) Clinical (units (unkno wn) date) Impression: unknown) (unknown) (no (unknown) (unknown) Constipation (units (u nknown) date) unknown) (unknown) (no (unknown) (unknown) Course (units (unkno wn) date) unknown) (unknown) (no (unknown) (unknown) : 2000 (units (unknown) date) Acct:[id number] unknown) (unknown) (no (unknown) (unknown) Date of Service: (units (unknown) date) 01/03/22 unknown) (unknown) (no (unknown) (unknown) Departure (units (unkn own) date) unknown) (unknown) (no (unknown) (unknown) Depression (units (unk nown) date) unknown) (unknown) (no (unknown) (unknown) Discharge Plan (units (unknown) date) unknown) (unknown) (no (unknown) (unknown) ER Physician: (units ( unknown) date) Rula Uriostegui unknown) D.O. (unknown) (no (unknown) (unknown) EXTREMITIES: (units (u nknown) date) Normal range of unknown) motion, no clubbing or edema. Neurovascularly (unknown) (no (unknown) (unknown) Emergency Report (units (unknown) date) unknown) (unknown) (no (unknown) (unknown) Epigastric (units (unk nown) date) abdominal pain unknown) (unknown) (no (unknown) (unknown) Exam (units (unkno wn) date) unknown) (unknown) (no (unknown) (unknown) Folliculitis (units (u nknown) date) unknown) (unknown) (no (unknown) (unknown) GASTROINTESTINAL: (units (unknown) date) Denies nausea, unknown) vomiting (unknown) (no (unknown) (unknown) GENERAL: Denies (units (unknown) date) chills,fever unknown) (unknown) (no (unknown) (unknown) GENERAL: (units (unkno wn) date) Well-appearing, unknown) well-nourished and in no acute distress. (unknown) (no (unknown) (unknown) GERD (units (unkno wn) date) (gastroesophageal unknown) reflux disease) (unknown) (no (unknown) (unknown) General (units (unkno wn) date) unknown) (unknown) (no (unknown) (unknown) HEENT: Denies (units ( unknown) date) throat pain unknown) (unknown) (no (unknown) (unknown) HPI - (units (unkno wn) date) Skin/Abscess/Forei unknown) gn Bdy (unknown) (no (unknown) (unknown) HPI narrative: (units (unknown) date) unknown) (unknown) (no (unknown) (unknown) History of (units (unk nown) date) Present Illness unknown) (unknown) (no (unknown) (unknown) Initial Vital (units ( unknown) date) Signs unknown) (unknown) (no (unknown) (unknown) Initial Vital (units ( unknown) date) Signs: unknown) (unknown) (no (unknown) (unknown) Injury of right (units (unknown) date) hand unknown) (unknown) (no (unknown) (unknown) Instructions: DI (units (unknown) date) for Cellulitis -- unknown) Adult (unknown) (no (unknown) (unknown) [facility] (units (unknown) date) [address] unknown) [place], [place] [id number] (unknown) (no (unknown) (unknown) Keflex 500 mg (units ( unknown) date) twice a day for 5 unknown) days--> rite-aid in 0 carbon (unknown) (no (unknown) (unknown) Limitations: no (units (unknown) date) limitations unknown) (unknown) (no (unknown) (unknown) [id number] (units (unk nown) date) unknown) (unknown) (no (unknown) (unknown) MDM - (units (unkno wn) date) Skin/Abscess/Forei unknown) gn Bdy (unknown) (no (unknown) (unknown) MDM Narrative (units ( unknown) date) unknown) (unknown) (no (unknown) (unknown) MUSCULOSKELETAL: (units (unknown) date) Denies extremity unknown) pain, injury (unknown) (no (unknown) (unknown) Medical History (units (unknown) date) (Reviewed 01/04/22 unknown) @ 01:51 by Rula Uriostegui DO) (unknown) (no (unknown) (unknown) Medical decision (units (unknown) date) making narrative: unknown) (unknown) (no (unknown) (unknown) Medication (units (unk nown) date) Instructions unknown) Recorded (unknown) (no (unknown) (unknown) Mode of arrival: (units (unknown) date) Ambulatory unknown) (unknown) (no (unknown) (unknown) NEUROLOGIC: (units (un known) date) Denies weakness, unknown) dizziness, headache, numbness (unknown) (no (unknown) (unknown) NEUROLOGICAL: (units ( unknown) date) Cranial nerves II unknown) through XII grossly intact. Normal gait and (unknown) (no (unknown) (unknown) Narrative: (units (unk nown) date) unknown) (unknown) (no (unknown) (unknown) Nausea (units (unkno wn) date) unknown) (unknown) (no (unknown) (unknown) New (units (unkno wn) date) unknown) (unknown) (no (unknown) (unknown) No Action (units (unkn own) date) unknown) (unknown) (no (unknown) (unknown) Oxygen Delivery (units (unknown) date) Method 01/03/22 unknown) 23:25 (unknown) (no (unknown) (unknown) Oxygen Delivery (units (unknown) date) Method Room Air unknown) Room Air (unknown) (no (unknown) (unknown) PTSD (units (unkno wn) date) (post-traumatic unknown) stress disorder) (unknown) (no (unknown) (unknown) Patient (units (unkno wn) date) Disposition: Home unknown) (unknown) (no (unknown) (unknown) Patient History (units (unknown) date) unknown) (unknown) (no (unknown) (unknown) Patient has (units (un known) date) minimal erythema unknown) looks like it is healing. Will start her on short (unknown) (no (unknown) (unknown) Patient is a (units (u nknown) date) 21-year-old female unknown) who presents with tattoo problem. She says she (unknown) (no (unknown) (unknown) Patient: (units (unkno wn) date) Joan Christy unknown) MR#: (unknown) (no (unknown) (unknown) Prescriptions: (units (unknown) date) unknown) (unknown) (no (unknown) (unknown) Previous Rx's (units ( unknown) date) unknown) (unknown) (no (unknown) (unknown) Pulse Oximetry 98 (units (unknown) date) 01/03/22 23:25 unknown) (unknown) (no (unknown) (unknown) Pulse Oximetry 98 (units (unknown) date) 99 unknown) (unknown) (no (unknown) (unknown) Pulse Rate 88 (units ( unknown) date) 01/03/22 23:25 unknown) (unknown) (no (unknown) (unknown) Pulse Rate 88 84 (units (unknown) date) unknown) (unknown) (no (unknown) (unknown) RESPIRATORY: (units (u nknown) date) Denies dyspnea, unknown) cough, wheezing (unknown) (no (unknown) (unknown) RESPIRATORY: No (units (unknown) date) respiratory unknown) distress, speaks in full sentences without (unknown) (no (unknown) (unknown) Referrals: (units (unk nown) date) unknown) (unknown) (no (unknown) (unknown) Related Data (units (u nknown) date) unknown) (unknown) (no (unknown) (unknown) Respiratory Rate (units (unknown) date) 20 01/03/22 23:25 unknown) (unknown) (no (unknown) (unknown) Respiratory Rate (units (unknown) date) 20 18 unknown) (unknown) (no (unknown) (unknown) Review of Systems (units (unknown) date) unknown) (unknown) (no (unknown) (unknown) Wilbert Brian, (units ( unknown) date) CLEARANCE COORDINATOR [Primary Care unknown) Provider] (unknown) (no (unknown) (unknown) Rx Instructions: (units (unknown) date) unknown) (unknown) (no (unknown) (unknown) SKIN: Right hand (units (unknown) date) tattoo on right unknown) thumb and thenar eminence. Some it is (unknown) (no (unknown) (unknown) SKIN: see HPI (units ( unknown) date) unknown) (unknown) (no (unknown) (unknown) See Rx (units (unkno wn) date) Instructions unknown) .Route .MEDSUPPLY Qty: 1 0RF (unknown) (no (unknown) (unknown) Signed By: (units (unk nown) date) unknown) (unknown) (no (unknown) (unknown) Smoking Status: (units (unknown) date) Former smoker unknown) (unknown) (no (unknown) (unknown) Social History (units (unknown) date) (Reviewed 01/04/22 unknown) @ 01:51 by Rula Uriostegui DO) (unknown) (no (unknown) (unknown) Source: patient (units (unknown) date) unknown) (unknown) (no (unknown) (unknown) Splint #1 ea (units (u nknown) date) 08/01/21 unknown) (unknown) (no (unknown) (unknown) Stated complaint: (units (unknown) date) right hand tattoo unknown) infected (unknown) (no (unknown) (unknown) Substance Use (units ( unknown) date) Type: does not use unknown) (unknown) (no (unknown) (unknown) Temperature 98.8 (units (unknown) date) F 01/03/22 23:25 unknown) (unknown) (no (unknown) (unknown) Temperature 98.8 (units (unknown) date) F unknown) (unknown) (no (unknown) (unknown) Time Seen by (units (u nknown) date) Provider: 01/04/22 unknown) 01:25 (unknown) (no (unknown) (unknown) Tobacco: How many (units (unknown) date) years used: 5 unknown) (unknown) (no (unknown) (unknown) Visit Report (units (u nknown) date) Forms: Patient unknown) Portal/API (unknown) (no (unknown) (unknown) Vital Signs - 8 (units (unknown) date) hr unknown) (unknown) (no (unknown) (unknown) Vital Signs (units (un known) date) unknown) (unknown) (no (unknown) (unknown) Vital signs: (units (u nknown) date) unknown) (unknown) (no (unknown) (unknown) [or] any new, (units ( unknown) date) worsening or unknown) concerning symptoms (unknown) (no (unknown) (unknown) alcohol intake (units (unknown) date) frequency: unknown) holidays/special occasions only (unknown) (no (unknown) (unknown) alcohol intake: (units (unknown) date) current unknown) (unknown) (no (unknown) (unknown) cephalexin 500 mg (units (unknown) date) capsule 500 mg PO unknown) BID 5 days #10 caps 01/04/22 (unknown) (no (unknown) (unknown) cephalexin 500 mg (units (unknown) date) capsule unknown) (unknown) (no (unknown) (unknown) course of (units (unkn own) date) antibiotics. At unknown) this time no sign of sepsis. Forearm and hand is (unknown) (no (unknown) (unknown) difficulty (units (unk nown) date) unknown) (unknown) (no (unknown) (unknown) during that time (units (unknown) date) to process her unknown) hand was wiped down with rubbing alcohol many (unknown) (no (unknown) (unknown) had a new tattoo (units (unknown) date) and new shop about unknown) a week ago. She has had many to had to use (unknown) (no (unknown) (unknown) however none of (units (unknown) date) them have done unknown) this. Seems to be peeling is slightly raised (unknown) (no (unknown) (unknown) hydration and (units ( unknown) date) antibiotic unknown) ointment. He can start antibiotics tomorrow. (unknown) (no (unknown) (unknown) intact (units (unkno wn) date) unknown) (unknown) (no (unknown) (unknown) metronidazole (units ( unknown) date) Allergy Mild 'lots unknown) of Verified 10/07/21 22:21 (unknown) (no (unknown) (unknown) mildly (units (unkno wn) date) erythematous. No unknown) fever or chills. No significant swelling. She says (unknown) (no (unknown) (unknown) omeprazole 40 mg (units (unknown) date) capsule,delayed 40 unknown) mg PO BID #60 caps 04/04/21 (unknown) (no (unknown) (unknown) omeprazole 40 mg (units (unknown) date) capsule,delayed unknown) release(DR/EC) (unknown) (no (unknown) (unknown) quit status: (units (u nknown) date) considering unknown) quitting (unknown) (no (unknown) (unknown) release (units (unkno wn) date) unknown) (unknown) (no (unknown) (unknown) second hand (units (un known) date) exposure: Yes unknown) (father's home and when smoking in car w/ windows up. (unknown) (no (unknown) (unknown) slightly raised (units (unknown) date) and peeling there unknown) is minimal erythema surrounding it there is no (unknown) (no (unknown) (unknown) soft no sign of (units (unknown) date) compartment unknown) syndrome. (unknown) (no (unknown) (unknown) speech. (units (unkno wn) date) unknown) (unknown) (no (unknown) (unknown) streaking there (units (unknown) date) is no pain out of unknown) proportion (unknown) (no (unknown) (unknown) substance use (units ( unknown) date) type: does not use unknown) (unknown) (no (unknown) (unknown) times (units (unkno wn) date) unknown) (unknown) (no (unknown) (unknown) tobacco type: (units ( unknown) date) cigarettes unknown) (unknown) (no (unknown) (unknown) vomiting' (units (unkn own) date) unknown) Result panel 70 (unknown) (no (unknown) (unknown) (no value) (units (unk nown) date) unknown) (unknown) (no (unknown) (unknown) (DME) Splint (units (u nknown) date) unknown) (unknown) (no (unknown) (unknown) ) (units (unkno wn) date) unknown) (unknown) (no (unknown) (unknown) 02/01/22 20:46 (units (unknown) date) unknown) (unknown) (no (unknown) (unknown) 02/01/22 (units (unkno wn) date) unknown) (unknown) (no (unknown) (unknown) 19:44 (units (unkno wn) date) unknown) (unknown) (no (unknown) (unknown) 40 mg PO BID (units (u nknown) date) Qty: 60 0RF unknown) (unknown) (no (unknown) (unknown) Abdominal pain (units (unknown) date) unknown) (unknown) (no (unknown) (unknown) Abdominal pain, (units (unknown) date) left upper unknown) quadrant (unknown) (no (unknown) (unknown) Age/Sex: 21 / F (units (unknown) date) unknown) (unknown) (no (unknown) (unknown) Allergies (units (unkn own) date) unknown) (unknown) (no (unknown) (unknown) Allergy/AdvReac (units (unknown) date) Type Severity unknown) Reaction Status Date / Time (unknown) (no (unknown) (unknown) Anxiety (units (unkno wn) date) unknown) (unknown) (no (unknown) (unknown) As directed (units (un known) date) unknown) (unknown) (no (unknown) (unknown) Blood Pressure (units (unknown) date) 107/59 L 02/01/22 unknown) 19:44 (unknown) (no (unknown) (unknown) Blood Pressure (units (unknown) date) 107/59 L unknown) (unknown) (no (unknown) (unknown) Chief Complaint: (units (unknown) date) Arrhythmia/Palpit unknown) ations (unknown) (no (unknown) (unknown) Constipation (units (u nknown) date) unknown) (unknown) (no (unknown) (unknown) Course (units (unkno wn) date) unknown) (unknown) (no (unknown) (unknown) : 2000 (units (unknown) date) Acct:[id number] unknown) (unknown) (no (unknown) (unknown) Date of Service: (units (unknown) date) 02/01/22 unknown) (unknown) (no (unknown) (unknown) Departure (units (unkn own) date) unknown) (unknown) (no (unknown) (unknown) Depression (units (unk nown) date) unknown) (unknown) (no (unknown) (unknown) Discharge Plan (units (unknown) date) unknown) (unknown) (no (unknown) (unknown) ED Orders (units (unkn own) date) unknown) (unknown) (no (unknown) (unknown) EKG-12 Lead Stat (units (unknown) date) unknown) (unknown) (no (unknown) (unknown) ER Physician: (units ( unknown) date) Mimi Major unknown) (unknown) (no (unknown) (unknown) Emergency Report (units (unknown) date) unknown) (unknown) (no (unknown) (unknown) Epigastric (units (unk nown) date) abdominal pain unknown) (unknown) (no (unknown) (unknown) Exam (units (unkno wn) date) unknown) (unknown) (no (unknown) (unknown) Folliculitis (units (u nknown) date) unknown) (unknown) (no (unknown) (unknown) GERD (units (unkno wn) date) (gastroesophageal unknown) reflux disease) (unknown) (no (unknown) (unknown) General (units (unkno wn) date) unknown) (unknown) (no (unknown) (unknown) HPI - (units (unkno wn) date) Arrhythmia/Palpit unknown) ations (unknown) (no (unknown) (unknown) Initial Vital (units ( unknown) date) Signs unknown) (unknown) (no (unknown) (unknown) Initial Vital (units ( unknown) date) Signs: unknown) (unknown) (no (unknown) (unknown) Injury of right (units (unknown) date) hand unknown) (unknown) (no (unknown) (unknown) [facility] (units (unknown) date) [address] unknown) [place] [address] (unknown) (no (unknown) (unknown) [id number] (units (unk nown) date) unknown) (unknown) (no (unknown) (unknown) Medical History (units (unknown) date) (Reviewed unknown) 01/04/22 @ 01:51 by Rula Uriostegui DO) (unknown) (no (unknown) (unknown) Medication (units (unk nown) date) Instructions unknown) Recorded (unknown) (no (unknown) (unknown) Mode of arrival: (units (unknown) date) Ambulatory unknown) (unknown) (no (unknown) (unknown) Nausea (units (unkno wn) date) unknown) (unknown) (no (unknown) (unknown) No Action (units (unkn own) date) unknown) (unknown) (no (unknown) (unknown) Ordered: (units (unkno wn) date) unknown) (unknown) (no (unknown) (unknown) Orders (units (unkno wn) date) unknown) (unknown) (no (unknown) (unknown) Oxygen Delivery (units (unknown) date) Method 02/01/22 unknown) 19:44 (unknown) (no (unknown) (unknown) Oxygen Delivery (units (unknown) date) Method Room Air unknown) (unknown) (no (unknown) (unknown) PTSD (units (unkno wn) date) (post-traumatic unknown) stress disorder) (unknown) (no (unknown) (unknown) Patient History (units (unknown) date) unknown) (unknown) (no (unknown) (unknown) Patient: (units (unkno wn) date) Joan Christy unknown) MR#: (unknown) (no (unknown) (unknown) Prescriptions: (units (unknown) date) unknown) (unknown) (no (unknown) (unknown) Previous Rx's (units ( unknown) date) unknown) (unknown) (no (unknown) (unknown) Pulse Oximetry (units (unknown) date) 99 02/01/22 19:44 unknown) (unknown) (no (unknown) (unknown) Pulse Oximetry (units (unknown) date) 99 unknown) (unknown) (no (unknown) (unknown) Pulse Rate 75 (units ( unknown) date) 02/01/22 19:44 unknown) (unknown) (no (unknown) (unknown) Pulse Rate 75 (units ( unknown) date) unknown) (unknown) (no (unknown) (unknown) Referrals: (units (unk nown) date) unknown) (unknown) (no (unknown) (unknown) Related Data (units (u nknown) date) unknown) (unknown) (no (unknown) (unknown) Respiratory Rate (units (unknown) date) 14 02/01/22 19:44 unknown) (unknown) (no (unknown) (unknown) Respiratory Rate (units (unknown) date) 14 unknown) (unknown) (no (unknown) (unknown) Wilbert Brian, (units ( unknown) date) CLEARANCE COORDINATOR [Primary unknown) Care Provider] (unknown) (no (unknown) (unknown) Rx Instructions: (units (unknown) date) unknown) (unknown) (no (unknown) (unknown) See Rx (units (unkno wn) date) Instructions unknown) .Route .MEDSUPPLY Qty: 1 0RF (unknown) (no (unknown) (unknown) Signed By: (units (unk nown) date) unknown) (unknown) (no (unknown) (unknown) Smoking Status: (units (unknown) date) Former smoker unknown) (unknown) (no (unknown) (unknown) Social History (units (unknown) date) (Reviewed unknown) 01/04/22 @ 01:51 by Rula Uriostegui DO) (unknown) (no (unknown) (unknown) Source: patient (units (unknown) date) unknown) (unknown) (no (unknown) (unknown) Splint #1 ea (units (u nknown) date) 08/01/21 unknown) (unknown) (no (unknown) (unknown) Stated (units (unkno wn) date) Complaint: Heart unknown) palpitations (unknown) (no (unknown) (unknown) Substance Use (units ( unknown) date) Type: does not unknown) use (unknown) (no (unknown) (unknown) Temperature 96.6 (units (unknown) date) F L 02/01/22 unknown) 19:44 (unknown) (no (unknown) (unknown) Temperature 96.6 (units (unknown) date) F L unknown) (unknown) (no (unknown) (unknown) Time Seen by (units (u nknown) date) Provider: unknown) 02/01/22 22:10 (unknown) (no (unknown) (unknown) Tobacco: How (units (u nknown) date) many years used: unknown) 5 (unknown) (no (unknown) (unknown) Vital Signs - 8 (units (unknown) date) hr unknown) (unknown) (no (unknown) (unknown) Vital Signs (units (un known) date) unknown) (unknown) (no (unknown) (unknown) Vital signs: (units (u nknown) date) unknown) (unknown) (no (unknown) (unknown) alcohol intake (units (unknown) date) frequency: unknown) holidays/special occasions only (unknown) (no (unknown) (unknown) alcohol intake: (units (unknown) date) current unknown) (unknown) (no (unknown) (unknown) metronidazole (units ( unknown) date) Allergy Mild unknown) 'lots of Verified 10/07/21 22:21 (unknown) (no (unknown) (unknown) omeprazole 40 mg (units (unknown) date) capsule,delayed unknown) 40 mg PO BID #60 caps 04/04/21 (unknown) (no (unknown) (unknown) omeprazole 40 mg (units (unknown) date) capsule,delayed unknown) release(DR/EC) (unknown) (no (unknown) (unknown) quit status: (units (u nknown) date) considering unknown) quitting (unknown) (no (unknown) (unknown) release (units (unkno wn) date) unknown) (unknown) (no (unknown) (unknown) second hand (units (un known) date) exposure: Yes unknown) (father's home and when smoking in car w/ windows up. (unknown) (no (unknown) (unknown) substance use (units ( unknown) date) type: does not unknown) use (unknown) (no (unknown) (unknown) tobacco type: (units ( unknown) date) cigarettes unknown) (unknown) (no (unknown) (unknown) vomiting' (units (unkn own) date) unknown) Result panel 71 (unknown) (no (unknown) (unknown) (no value) (units (unk nown) date) unknown) (unknown) (no (unknown) (unknown) 1. No acute (units (un known) date) cardiopulmonary unknown) disease. (unknown) (no (unknown) (unknown) 02/01/22 (units (unkno wn) date) unknown) (unknown) (no (unknown) (unknown) [address] [place] [id number] (units (unknown) date) unknown) (unknown) (no (unknown) (unknown) : [id number] (units (u nknown) date) unknown) (unknown) (no (unknown) (unknown) Accession Number: (units (unknown) date) [id number] unknown) (unknown) (no (unknown) (unknown) Age/Sex: 21 / F (units (unknown) date) Date of Service: unknown) (unknown) (no (unknown) (unknown) [place] (units ( unknown) date) [id number] unknown) (unknown) (no (unknown) (unknown) Approved by: (units (u nknown) date) Ambrose Ochoa, unknown) Melissa on 02/02/2022 at 0:46 (unknown) (no (unknown) (unknown) Bones and chest (units (unknown) date) wall: No unknown) suspicious bony lesions. Overlying soft tissues (unknown) (no (unknown) (unknown) COMPARISON: (units (un known) date) [facility], unknown) CR, XR CHEST 2V, 10/26/2020, 15:34. (unknown) (no (unknown) (unknown) : 2000 (units (unknown) date) Acct:[id number] unknown) (unknown) (no (unknown) (unknown) Dictated by: (units (u nknown) date) Ambrose Ochoa, unknown) Melissa on 02/02/2022 at 0:46 (unknown) (no (unknown) (unknown) FINDINGS: (units (unkn own) date) unknown) (unknown) (no (unknown) (unknown) IMPRESSION: (units (un known) date) unknown) (unknown) (no (unknown) (unknown) INDICATIONS: (units (u nknown) date) palpitations unknown) (unknown) (no (unknown) (unknown) [facility] (units (unknown) date) unknown) (unknown) (no (unknown) (unknown) Loc: ED (units (unkno wn) date) unknown) (unknown) (no (unknown) (unknown) Lungs and pleura: (units (unknown) date) Lungs are clear. unknown) No pleural effusions or pneumothorax. (unknown) (no (unknown) (unknown) Mediastinum: (units (u nknown) date) Mediastinal unknown) contours appear normal. Heart size is normal. (unknown) (no (unknown) (unknown) Ordering (units (unkno wn) date) Provider: unknown) Mimi Major MD (unknown) (no (unknown) (unknown) PROCEDURE: XR (units ( unknown) date) CHEST 1V unknown) (unknown) (no (unknown) (unknown) Patient: (units (unkno wn) date) Joan Christy unknown) MR# (unknown) (no (unknown) (unknown) Procedure: XR (units ( unknown) date) chest 1V unknown) (unknown) (no (unknown) (unknown) Signed (units (unkno wn) date) unknown) (unknown) (no (unknown) (unknown) Surgical changes (units (unknown) date) and devices: None. unknown) (unknown) (no (unknown) (unknown) TECHNIQUE: One (units (unknown) date) view of the chest unknown) was acquired. (unknown) (no (unknown) (unknown) XRay Report (units (un known) date) unknown) (unknown) (no (unknown) (unknown) appear (units (unkno wn) date) unknown) (unknown) (no (unknown) (unknown) unremarkable. (units ( unknown) date) unknown) Result panel 72 (unknown) (no (unknown) (unknown) (no value) (units (unk nown) date) unknown) (unknown) (no (unknown) (unknown) (DME) Splint (units (u nknown) date) unknown) (unknown) (no (unknown) (unknown) ) (units (unkno wn) date) unknown) (unknown) (no (unknown) (unknown) 02/01/22 20:46 (units (unknown) date) unknown) (unknown) (no (unknown) (unknown) 02/01/22 (units (unkno wn) date) unknown) (unknown) (no (unknown) (unknown) 15 that she (units (un known) date) would have an unknown) occasional irregular beat that was uncomfortable but (unknown) (no (unknown) (unknown) 19:44 (units (unkno wn) date) unknown) (unknown) (no (unknown) (unknown) 21-year-old (units (un known) date) woman with a unknown) history of intermittent reflux type symptoms presents (unknown) (no (unknown) (unknown) 40 mg PO BID (units (u nknown) date) Qty: 60 0RF unknown) (unknown) (no (unknown) (unknown) Abdomen: Soft, (units (unknown) date) nontender, good unknown) bowel tones, no flank pain (unknown) (no (unknown) (unknown) Abdominal pain (units (unknown) date) unknown) (unknown) (no (unknown) (unknown) Abdominal pain, (units (unknown) date) left upper unknown) quadrant (unknown) (no (unknown) (unknown) Age/Sex: 21 / F (units (unknown) date) unknown) (unknown) (no (unknown) (unknown) Allergies (units (unkn own) date) unknown) (unknown) (no (unknown) (unknown) Allergy/AdvReac (units (unknown) date) Type Severity unknown) Reaction Status Date / Time (unknown) (no (unknown) (unknown) Anxiety (units (unkno wn) date) unknown) (unknown) (no (unknown) (unknown) As directed (units (un known) date) unknown) (unknown) (no (unknown) (unknown) Blood Pressure (units (unknown) date) 107/59 L 02/01/22 unknown) 19:44 (unknown) (no (unknown) (unknown) Blood Pressure (units (unknown) date) 107/59 L unknown) (unknown) (no (unknown) (unknown) Cardiac: Regular (units (unknown) date) rate and rhythm unknown) no murmurs no bruits (unknown) (no (unknown) (unknown) Chief Complaint: (units (unknown) date) Arrhythmia/Palpit unknown) ations (unknown) (no (unknown) (unknown) Constipation (units (u nknown) date) unknown) (unknown) (no (unknown) (unknown) Course (units (unkno wn) date) unknown) (unknown) (no (unknown) (unknown) : 2000 (units (unknown) date) Acct:[id number] unknown) (unknown) (no (unknown) (unknown) Date of Service: (units (unknown) date) 02/01/22 unknown) (unknown) (no (unknown) (unknown) Departure (units (unkn own) date) unknown) (unknown) (no (unknown) (unknown) Depression (units (unk nown) date) unknown) (unknown) (no (unknown) (unknown) Discharge Plan (units (unknown) date) unknown) (unknown) (no (unknown) (unknown) ED Orders (units (unkn own) date) unknown) (unknown) (no (unknown) (unknown) EKG-12 Lead Stat (units (unknown) date) unknown) (unknown) (no (unknown) (unknown) ER Physician: (units ( unknown) date) Mimi Major unknown) (unknown) (no (unknown) (unknown) Emergency Report (units (unknown) date) unknown) (unknown) (no (unknown) (unknown) Epigastric (units (unk nown) date) abdominal pain unknown) (unknown) (no (unknown) (unknown) Exam (units (unkno wn) date) unknown) (unknown) (no (unknown) (unknown) Extremities: No (units (unknown) date) trauma, well unknown) perfused (unknown) (no (unknown) (unknown) Folliculitis (units (u nknown) date) unknown) (unknown) (no (unknown) (unknown) Full and (units (unkno wn) date) symmetrical air unknown) movement (unknown) (no (unknown) (unknown) GERD (units (unkno wn) date) (gastroesophageal unknown) reflux disease) (unknown) (no (unknown) (unknown) General (units (unkno wn) date) unknown) (unknown) (no (unknown) (unknown) General: Healthy (units (unknown) date) appearing, in no unknown) acute distress. Able to give a complete and (unknown) (no (unknown) (unknown) HEENT: Moist (units (u nknown) date) mucous membranes, unknown) normal sclera with reactive pupils, (unknown) (no (unknown) (unknown) HPI - (units (unkno wn) date) Arrhythmia/Palpit unknown) ations (unknown) (no (unknown) (unknown) HPI narrative: (units (unknown) date) unknown) (unknown) (no (unknown) (unknown) History of (units (unk nown) date) Present Illness unknown) (unknown) (no (unknown) (unknown) Initial Vital (units ( unknown) date) Signs unknown) (unknown) (no (unknown) (unknown) Initial Vital (units ( unknown) date) Signs: unknown) (unknown) (no (unknown) (unknown) Injury of right (units (unknown) date) hand unknown) (unknown) (no (unknown) (unknown) [facility] (units (unknown) date) [address] [place] [id number] unknown) [place] [address] (unknown) (no (unknown) (unknown) [id number] (units (unk nown) date) unknown) (unknown) (no (unknown) (unknown) Medical History (units (unknown) date) (Reviewed unknown) 02/01/22 @ 23:15 by Mimi Major MD) (unknown) (no (unknown) (unknown) Medication (units (unk nown) date) Instructions unknown) Recorded (unknown) (no (unknown) (unknown) Mode of arrival: (units (unknown) date) Ambulatory unknown) (unknown) (no (unknown) (unknown) Narrative: (units (unk nown) date) unknown) (unknown) (no (unknown) (unknown) Nausea (units (unkno wn) date) unknown) (unknown) (no (unknown) (unknown) Neck: supple (units (u nknown) date) unknown) (unknown) (no (unknown) (unknown) Neurologic: (units (un known) date) Grossly unknown) neurologically intact with no obvious asymmetries or (unknown) (no (unknown) (unknown) No Action (units (unkn own) date) unknown) (unknown) (no (unknown) (unknown) Ordered: (units (unkno wn) date) unknown) (unknown) (no (unknown) (unknown) Orders (units (unkno wn) date) unknown) (unknown) (no (unknown) (unknown) Oxygen Delivery (units (unknown) date) Method 02/01/22 unknown) 19:44 (unknown) (no (unknown) (unknown) Oxygen Delivery (units (unknown) date) Method Room Air unknown) (unknown) (no (unknown) (unknown) PTSD (units (unkno wn) date) (post-traumatic unknown) stress disorder) (unknown) (no (unknown) (unknown) Patient History (units (unknown) date) unknown) (unknown) (no (unknown) (unknown) Patient: (units (unkno wn) date) Joan Christy unknown) MR#: (unknown) (no (unknown) (unknown) Prescriptions: (units (unknown) date) unknown) (unknown) (no (unknown) (unknown) Previous Rx's (units ( unknown) date) unknown) (unknown) (no (unknown) (unknown) Psych: (units (unkno wn) date) Cooperative, unknown) appropriate insight and affect (unknown) (no (unknown) (unknown) Pulse Oximetry (units (unknown) date) 99 02/01/22 19:44 unknown) (unknown) (no (unknown) (unknown) Pulse Oximetry (units (unknown) date) 99 unknown) (unknown) (no (unknown) (unknown) Pulse Rate 75 (units ( unknown) date) 02/01/22 19:44 unknown) (unknown) (no (unknown) (unknown) Pulse Rate 75 (units ( unknown) date) unknown) (unknown) (no (unknown) (unknown) Referrals: (units (unk nown) date) unknown) (unknown) (no (unknown) (unknown) Related Data (units (u nknown) date) unknown) (unknown) (no (unknown) (unknown) Remainder of (units (u nknown) date) complete review unknown) of systems is otherwise unremarkable except for (unknown) (no (unknown) (unknown) Respiratory Rate (units (unknown) date) 14 02/01/22 19:44 unknown) (unknown) (no (unknown) (unknown) Respiratory Rate (units (unknown) date) 14 unknown) (unknown) (no (unknown) (unknown) Respiratory: (units (u nknown) date) Lungs are clear unknown) to auscultation, no wheezing no rales no rhonchi. (unknown) (no (unknown) (unknown) Review of (units (unkn own) date) Systems unknown) (unknown) (no (unknown) (unknown) Wilbert Brian, (units ( unknown) date) CLEARANCE COORDINATOR [Primary unknown) Care Provider] (unknown) (no (unknown) (unknown) Rx Instructions: (units (unknown) date) unknown) (unknown) (no (unknown) (unknown) See Rx (units (unkno wn) date) Instructions unknown) .Route .MEDSULY Qty: 1 0RF (unknown) (no (unknown) (unknown) She does not (units (u nknown) date) consume unknown) significant stimulants including caffeine, energy drinks, (unknown) (no (unknown) (unknown) Signed By: (units (unk nown) date) unknown) (unknown) (no (unknown) (unknown) Skin: Warm and (units (unknown) date) dry, no rashes unknown) (unknown) (no (unknown) (unknown) Smoking Status: (units (unknown) date) Former smoker unknown) (unknown) (no (unknown) (unknown) Social History (units (unknown) date) (Reviewed unknown) 02/01/22 @ 23:15 by Mimi Major MD) (unknown) (no (unknown) (unknown) Source: patient (units (unknown) date) unknown) (unknown) (no (unknown) (unknown) Splint #1 ea (units (u nknown) date) 08/01/21 unknown) (unknown) (no (unknown) (unknown) Stated (units (unkno wn) date) Complaint: Heart unknown) palpitations (unknown) (no (unknown) (unknown) Substance Use (units ( unknown) date) Type: does not unknown) use (unknown) (no (unknown) (unknown) Temperature 96.6 (units (unknown) date) F L 02/01/22 unknown) 19:44 (unknown) (no (unknown) (unknown) Temperature 96.6 (units (unknown) date) F L unknown) (unknown) (no (unknown) (unknown) Time Seen by (units (u nknown) date) Provider: unknown) 02/01/22 22:10 (unknown) (no (unknown) (unknown) Tobacco: How (units (u nknown) date) many years used: unknown) 5 (unknown) (no (unknown) (unknown) Vital Signs - 8 (units (unknown) date) hr unknown) (unknown) (no (unknown) (unknown) Vital Signs (units (un known) date) unknown) (unknown) (no (unknown) (unknown) Vital signs: (units (u nknown) date) unknown) (unknown) (no (unknown) (unknown) abnormalities (units ( unknown) date) unknown) (unknown) (no (unknown) (unknown) ago. (units (unkno wn) date) unknown) (unknown) (no (unknown) (unknown) alcohol intake (units (unknown) date) frequency: unknown) holidays/special occasions only (unknown) (no (unknown) (unknown) alcohol intake: (units (unknown) date) current unknown) (unknown) (no (unknown) (unknown) cocaine or (units (unk nown) date) methamphetamine. unknown) Denies recreational opiates and IV drug use. No (unknown) (no (unknown) (unknown) coherent (units (unkno wn) date) history. unknown) Well-nourished well-developed (unknown) (no (unknown) (unknown) enough concerned (units (unknown) date) that she is unknown) coming in for further evaluation. She reports no (unknown) (no (unknown) (unknown) further (units (unkno wn) date) evaluation done. unknown) She notes that she is continued to have palpitations (unknown) (no (unknown) (unknown) metronidazole (units ( unknown) date) Allergy Mild unknown) 'lots of Verified 10/07/21 22:21 (unknown) (no (unknown) (unknown) not particularly (units (unknown) date) painful. She had unknown) an EKG for evaluation at that time but has no (unknown) (no (unknown) (unknown) omeprazole 40 mg (units (unknown) date) capsule,delayed unknown) 40 mg PO BID #60 caps 04/04/21 (unknown) (no (unknown) (unknown) omeprazole 40 mg (units (unknown) date) capsule,delayed unknown) release(DR/EC) (unknown) (no (unknown) (unknown) other diet or (units ( unknown) date) metabolic unknown) supplements. No nausea, vomiting, diarrhea, abdominal (unknown) (no (unknown) (unknown) over the years (units (unknown) date) but the last unknown) month it is gotten particularly troublesome and (unknown) (no (unknown) (unknown) pain, headache. (units (unknown) date) She notes that unknown) she is successfully quit smoking about a month (unknown) (no (unknown) (unknown) pounding enough (units (unknown) date) that she felt unknown) that she was going to pass out. This caused (unknown) (no (unknown) (unknown) quit status: (units (u nknown) date) considering unknown) quitting (unknown) (no (unknown) (unknown) recent viral (units (u nknown) date) symptoms, unknown) dyspnea, orthopnea. She does note that due to her work (unknown) (no (unknown) (unknown) release (units (unkno wn) date) unknown) (unknown) (no (unknown) (unknown) schedule her (units (u nknown) date) sleep schedule unknown) has been increasingly chaotic over the last month. (unknown) (no (unknown) (unknown) second hand (units (un known) date) exposure: Yes unknown) (father's home and when smoking in car w/ windows up. (unknown) (no (unknown) (unknown) substance use (units ( unknown) date) type: does not unknown) use (unknown) (no (unknown) (unknown) that included in (units (unknown) date) the HPI. unknown) (unknown) (no (unknown) (unknown) tobacco type: (units ( unknown) date) cigarettes unknown) (unknown) (no (unknown) (unknown) today she had an (units (unknown) date) event with a unknown) couple of irregular beats that were hard and (unknown) (no (unknown) (unknown) vomiting' (units (unkn own) date) unknown) (unknown) (no (unknown) (unknown) with (units (unkno wn) date) palpitations that unknown) seem to be getting worse. She 1st noticed at the age of Result panel 73 (unknown) (no date) (unknown) (unknown) 0.7 % (unkn own) (unknown) (no date) (unknown) (unknown) 100 /ul (unkn own) (unknown) (no date) (unknown) (unknown) 12.9 % (unkn own) (unknown) (no date) (unknown) (unknown) 13.6 g/dl (unkn own) (unknown) (no date) (unknown) (unknown) 2.6 % (unkn own) (unknown) (no date) (unknown) (unknown) 200 /ul (unkn own) (unknown) (no date) (unknown) (unknown) 28.1 pg (unkn own) (unknown) (no date) (unknown) (unknown) 2800 /ul (unkn own) (unknown) (no date) (unknown) (unknown) 329 x10 3/ul (unkn own) (unknown) (no date) (unknown) (unknown) 33.7 % (unkn own) (unknown) (no date) (unknown) (unknown) 35.8 % (unkn own) (unknown) (no date) (unknown) (unknown) 4.82 x10 6/ul (unkn own) (unknown) (no date) (unknown) (unknown) 40.2 % (unkn own) (unknown) (no date) (unknown) (unknown) 4200 /ul (unkn own) (unknown) (no date) (unknown) (unknown) 500 /ul (unkn own) (unknown) (no date) (unknown) (unknown) 54.5 % (unkn own) (unknown) (no date) (unknown) (unknown) 6.4 % (unkn own) (unknown) (no date) (unknown) (unknown) 7.8 x10 3/ul (unkn own) (unknown) (no date) (unknown) (unknown) 83.5 fl (unkn own) Result panel 74 (unknown) (no date) (unknown) (unknown) > 60 ml/min (unkn own) (unknown) (no date) (unknown) (unknown) > 60 ml/min (unkn own) (unknown) (no date) (unknown) (unknown) 0.53 mg/dl (unkn own) (unknown) (no date) (unknown) (unknown) 1.3 (units unknown) (unknown) (unknown) (no date) (unknown) (unknown) 104 mmol/l (unkn own) (unknown) (no date) (unknown) (unknown) 139 mmol/l (unkn own) (unknown) (no date) (unknown) (unknown) 15.1 (units unknown) (unknown) (unknown) (no date) (unknown) (unknown) 2.6 mg/dl (unkn own) (unknown) (no date) (unknown) (unknown) 24 mmol/l (unkn own) (unknown) (no date) (unknown) (unknown) 27 iu/l (unkn own) (unknown) (no date) (unknown) (unknown) 3.4 g/dl (unkn own) (unknown) (no date) (unknown) (unknown) 3.6 mmol/l (unkn own) (unknown) (no date) (unknown) (unknown) 31 iu/l (unkn own) (unknown) (no date) (unknown) (unknown) 4.4 g/dl (unkn own) (unknown) (no date) (unknown) (unknown) 7.8 g/dl (unkn own) (unknown) (no date) (unknown) (unknown) 8 mg/dl (unkn own) (unknown) (no date) (unknown) (unknown) 8.9 mg/dl (unkn own) (unknown) (no date) (unknown) (unknown) 82 u/l (unkn own) (unknown) (no date) (unknown) (unknown) 84 mg/dl (unkn own) (unknown) (no date) (unknown) (unknown) 84 mg/dl (unkn own) Result panel 75 (unknown) (no date) (unknown) (unknown) 39 u/l (unkn own) (unknown) (no date) (unknown) (unknown) Test not % (unkn own) performed (unknown) (no date) (unknown) (unknown) Test not % (unkn own) performed (unknown) (no date) (unknown) (unknown) Test not ng/ml (unkn own) performed (unknown) (no date) (unknown) (unknown) Test not ng/ml (unkn own) performed Result panel 76 (unknown) (no date) (unknown) (unknown) < 0.012 ng/ml (unkn own) (unknown) (no date) (unknown) (unknown) < 0.012 ng/ml (unkn own) (unknown) (no date) (unknown) (unknown) 39 u/l (unkn own) (unknown) (no date) (unknown) (unknown) Test not % (unkn own) performed (unknown) (no date) (unknown) (unknown) Test not % (unkn own) performed (unknown) (no date) (unknown) (unknown) Test not ng/ml (unkn own) performed (unknown) (no date) (unknown) (unknown) Test not ng/ml (unkn own) performed Result panel 77 (unknown) (no date) (unknown) (unknown) 0.210 uiu/ml (unkn own) Result panel 78 (unknown) (no (unknown) (unknown) (no value) (units (unk nown) date) unknown) (unknown) (no (unknown) (unknown) (DME) Splint (units (u nknown) date) unknown) (unknown) (no (unknown) (unknown) ) (units (unkno wn) date) unknown) (unknown) (no (unknown) (unknown) 02/01/22 (units (unkno wn) date) 02/01/22 02/01/22 unknown) Range/Units (unknown) (no (unknown) (unknown) 02/01/22 20:46 (units (unknown) date) unknown) (unknown) (no (unknown) (unknown) 02/01/22 23:12 (units (unknown) date) unknown) (unknown) (no (unknown) (unknown) 02/01/22 23:47 (units (unknown) date) unknown) (unknown) (no (unknown) (unknown) 02/01/22 (units (unkno wn) date) Range/Units unknown) (unknown) (no (unknown) (unknown) 02/01/22 (units (unkno wn) date) unknown) (unknown) (no (unknown) (unknown) 02/02/22 00:54 (units (unknown) date) unknown) (unknown) (no (unknown) (unknown) 15 that she (units (un known) date) would have an unknown) occasional irregular beat that was uncomfortable but (unknown) (no (unknown) (unknown) 19:44 (units (unkno wn) date) unknown) (unknown) (no (unknown) (unknown) 21-year-old (units (un known) date) woman with a unknown) history of intermittent reflux type symptoms presents (unknown) (no (unknown) (unknown) 21-year-old (units (un known) date) woman with unknown) increasing palpitations. Workup is relatively (unknown) (no (unknown) (unknown) 23:47 23:47 (units (un known) date) 23:47 unknown) (unknown) (no (unknown) (unknown) 23:47 (units (unkno wn) date) unknown) (unknown) (no (unknown) (unknown) 40 mg PO BID (units (u nknown) date) Qty: 60 0RF unknown) (unknown) (no (unknown) (unknown) ALT (<35) IU/L (units (unknown) date) unknown) (unknown) (no (unknown) (unknown) ALT 27 (<35) (units (u nknown) date) IU/L unknown) (unknown) (no (unknown) (unknown) AST (14-36) IU/L (units (unknown) date) unknown) (unknown) (no (unknown) (unknown) AST 31 (14-36) (units (unknown) date) IU/L unknown) (unknown) (no (unknown) (unknown) Abdomen: Soft, (units (unknown) date) nontender, good unknown) bowel tones, no flank pain (unknown) (no (unknown) (unknown) Abdominal pain (units (unknown) date) unknown) (unknown) (no (unknown) (unknown) Abdominal pain, (units (unknown) date) left upper unknown) quadrant (unknown) (no (unknown) (unknown) Age/Sex: 21 / F (units (unknown) date) unknown) (unknown) (no (unknown) (unknown) Albumin (units (unkno wn) date) (3.5-5.0) g/dL unknown) (unknown) (no (unknown) (unknown) Albumin 4.4 (units (un known) date) (3.5-5.0) g/dL unknown) (unknown) (no (unknown) (unknown) Albumin/Globulin (units (unknown) date) Ratio (1.0-2.8) unknown) (unknown) (no (unknown) (unknown) Albumin/Globulin (units (unknown) date) Ratio 1.3 unknown) (1.0-2.8) (unknown) (no (unknown) (unknown) Alkaline (units (unkno wn) date) Phosphatase unknown) (38-126) U/L (unknown) (no (unknown) (unknown) Alkaline (units (unkno wn) date) Phosphatase 82 unknown) (38-126) U/L (unknown) (no (unknown) (unknown) Allergies (units (unkn own) date) unknown) (unknown) (no (unknown) (unknown) Allergy/AdvReac (units (unknown) date) Type Severity unknown) Reaction Status Date / Time (unknown) (no (unknown) (unknown) Anxiety (units (unkno wn) date) unknown) (unknown) (no (unknown) (unknown) As directed (units (un known) date) unknown) (unknown) (no (unknown) (unknown) BUN (7-17) mg/dL (units (unknown) date) unknown) (unknown) (no (unknown) (unknown) BUN 8 (7-17) (units (u nknown) date) mg/dL unknown) (unknown) (no (unknown) (unknown) BUN/Creatinine (units (unknown) date) Ratio (-) unknown) (unknown) (no (unknown) (unknown) BUN/Creatinine (units (unknown) date) Ratio 15.1 (-22) unknown) (unknown) (no (unknown) (unknown) Baso # (Auto) (units ( unknown) date) (0-100) /uL unknown) (unknown) (no (unknown) (unknown) Baso # (Auto) (units ( unknown) date) 100 (0-100) /uL unknown) (unknown) (no (unknown) (unknown) Baso % (Auto) (units ( unknown) date) (0-2) % unknown) (unknown) (no (unknown) (unknown) Baso % (Auto) (units ( unknown) date) 0.7 (0-2) % unknown) (unknown) (no (unknown) (unknown) Blood Pressure (units (unknown) date) 107/59 L 02/01/22 unknown) 19:44 (unknown) (no (unknown) (unknown) Blood Pressure (units (unknown) date) 107/59 L unknown) (unknown) (no (unknown) (unknown) CK-MB (CK-2) Rel (units (unknown) date) Index TNP unknown) (unknown) (no (unknown) (unknown) CK-MB (CK-2) Rel (units (unknown) date) Index unknown) (unknown) (no (unknown) (unknown) CK-MB (CK-2) TNP (units (unknown) date) unknown) (unknown) (no (unknown) (unknown) CK-MB (CK-2) (units (u nknown) date) unknown) (unknown) (no (unknown) (unknown) Calcium (units (unkno wn) date) (8.4-10.2) mg/dL unknown) (unknown) (no (unknown) (unknown) Calcium 8.9 (units (un known) date) (8.4-10.2) mg/dL unknown) (unknown) (no (unknown) (unknown) Carbon Dioxide (units (unknown) date) (22-32) mmol/L unknown) (unknown) (no (unknown) (unknown) Carbon Dioxide (units (unknown) date) 24 (22-32) mmol/L unknown) (unknown) (no (unknown) (unknown) Cardiac: Regular (units (unknown) date) rate and rhythm unknown) no murmurs no bruits (unknown) (no (unknown) (unknown) Chief Complaint: (units (unknown) date) Arrhythmia/Palpit unknown) ations (unknown) (no (unknown) (unknown) Chloride (units (unkno wn) date) (98-107) mmol/L unknown) (unknown) (no (unknown) (unknown) Chloride 104 (units (u nknown) date) (98-107) mmol/L unknown) (unknown) (no (unknown) (unknown) Complete Blood (units (unknown) date) Count AUTO DIFF unknown) Stat (unknown) (no (unknown) (unknown) Comprehensive (units ( unknown) date) Metabolic Panel unknown) Stat (unknown) (no (unknown) (unknown) Constipation (units (u nknown) date) unknown) (unknown) (no (unknown) (unknown) Course (units (unkno wn) date) unknown) (unknown) (no (unknown) (unknown) Creatinine (units (unk nown) date) (0.52-1.04) mg/dL unknown) (unknown) (no (unknown) (unknown) Creatinine 0.53 (units (unknown) date) (0.52-1.04) mg/dL unknown) (unknown) (no (unknown) (unknown) : 2000 (units (unknown) date) Acct:[id number] unknown) (unknown) (no (unknown) (unknown) Date of Service: (units (unknown) date) 02/01/22 unknown) (unknown) (no (unknown) (unknown) Departure (units (unkn own) date) unknown) (unknown) (no (unknown) (unknown) Depression (units (unk nown) date) unknown) (unknown) (no (unknown) (unknown) Discharge Plan (units (unknown) date) unknown) (unknown) (no (unknown) (unknown) ED Orders (units (unkn own) date) unknown) (unknown) (no (unknown) (unknown) EKG-12 Lead Stat (units (unknown) date) unknown) (unknown) (no (unknown) (unknown) ER Physician: (units ( unknown) date) Mimi Major unknown) (unknown) (no (unknown) (unknown) Emergency Report (units (unknown) date) unknown) (unknown) (no (unknown) (unknown) Eos # (Auto) (units (u nknown) date) (0-450) /uL unknown) (unknown) (no (unknown) (unknown) Eos # (Auto) 200 (units (unknown) date) (0-450) /uL unknown) (unknown) (no (unknown) (unknown) Eos % (Auto) (units (u nknown) date) (2-4) % unknown) (unknown) (no (unknown) (unknown) Eos % (Auto) 2.6 (units (unknown) date) (2-4) % unknown) (unknown) (no (unknown) (unknown) Epigastric (units (unk nown) date) abdominal pain unknown) (unknown) (no (unknown) (unknown) Estimated GFR > (units (unknown) date) 60 (>60) mL/min unknown) (unknown) (no (unknown) (unknown) Estimated GFR (units ( unknown) date) (>60) mL/min unknown) (unknown) (no (unknown) (unknown) Exam (units (unkno wn) date) unknown) (unknown) (no (unknown) (unknown) Extremities: No (units (unknown) date) trauma, well unknown) perfused (unknown) (no (unknown) (unknown) Folliculitis (units (u nknown) date) unknown) (unknown) (no (unknown) (unknown) Free T4, Direct (units (unknown) date) Thyroxine Stat unknown) (unknown) (no (unknown) (unknown) Full and (units (unkno wn) date) symmetrical air unknown) movement (unknown) (no (unknown) (unknown) GERD (units (unkno wn) date) (gastroesophageal unknown) reflux disease) (unknown) (no (unknown) (unknown) General (units (unkno wn) date) unknown) (unknown) (no (unknown) (unknown) General: Healthy (units (unknown) date) appearing, in no unknown) acute distress. Able to give a complete and (unknown) (no (unknown) (unknown) Globulin (units (unkno wn) date) (1.7-4.1) g/dL unknown) (unknown) (no (unknown) (unknown) Globulin 3.4 (units (u nknown) date) (1.7-4.1) g/dL unknown) (unknown) (no (unknown) (unknown) Glucose (70-100) (units (unknown) date) mg/dL unknown) (unknown) (no (unknown) (unknown) Glucose 84 (units (unk ) date) (70-100) mg/dL unknown) (unknown) (no (unknown) (unknown) HEENT: Moist (units (u nknown) date) mucous membranes, unknown) normal sclera with reactive pupils, (unknown) (no (unknown) (unknown) HPI - (units (unkno wn) date) Arrhythmia/Palpit unknown) ations (unknown) (no (unknown) (unknown) HPI narrative: (units (unknown) date) unknown) (unknown) (no (unknown) (unknown) Hct (36-46) % (units ( unknown) date) unknown) (unknown) (no (unknown) (unknown) Hct 40.2 (36-46) (units (unknown) date) % unknown) (unknown) (no (unknown) (unknown) Hgb (12.0-16.0) (units (unknown) date) g/dL unknown) (unknown) (no (unknown) (unknown) Hgb 13.6 (units (unkno wn) date) (12.0-16.0) g/dL unknown) (unknown) (no (unknown) (unknown) History of (units (unk n) date) Present Illness unknown) (unknown) (no (unknown) (unknown) Initial Vital (units ( unknown) date) Signs unknown) (unknown) (no (unknown) (unknown) Initial Vital (units ( unknown) date) Signs: unknown) (unknown) (no (unknown) (unknown) Injury of right (units (unknown) date) hand unknown) (unknown) (no (unknown) (unknown) [facility] (units (unknown) date) [address] unknown) [place] [address] (unknown) (no (unknown) (unknown) Lab Data (units (unkno wn) date) unknown) (unknown) (no (unknown) (unknown) Lab Results (units (un known) date) unknown) (unknown) (no (unknown) (unknown) Labs: (units (unkno wn) date) unknown) (unknown) (no (unknown) (unknown) Lymph # (Auto) (units (unknown) date) ([id number]) /uL unknown) (unknown) (no (unknown) (unknown) Lymph # (Auto) (units (unknown) date) 2800 ([id number]) unknown) /uL (unknown) (no (unknown) (unknown) Lymph % (Auto) (units (unknown) date) (25-40) % unknown) (unknown) (no (unknown) (unknown) Lymph % (Auto) (units (unknown) date) 35.8 (25-40) % unknown) (unknown) (no (unknown) (unknown) [id number] (units (unk nown) date) unknown) (unknown) (no (unknown) (unknown) MCH (26-34) PG (units (unknown) date) unknown) (unknown) (no (unknown) (unknown) MCH 28.1 (26-34) (units (unknown) date) PG unknown) (unknown) (no (unknown) (unknown) MCHC (30-36) % (units (unknown) date) unknown) (unknown) (no (unknown) (unknown) MCHC 33.7 (units (unkn own) date) (30-36) % unknown) (unknown) (no (unknown) (unknown) MCV (80-100) fL (units (unknown) date) unknown) (unknown) (no (unknown) (unknown) MCV 83.5 (units (unkno wn) date) (80-100) fL unknown) (unknown) (no (unknown) (unknown) MDM - (units (unkno wn) date) Arrhythmia/Palpit unknown) ations (unknown) (no (unknown) (unknown) MDM Narrative (units ( unknown) date) unknown) (unknown) (no (unknown) (unknown) Medical History (units (unknown) date) (Reviewed unknown) 02/01/22 @ 23:15 by Mimi Major MD) (unknown) (no (unknown) (unknown) Medical decision (units (unknown) date) making narrative: unknown) (unknown) (no (unknown) (unknown) Medication (units (unk nown) date) Instructions unknown) Recorded (unknown) (no (unknown) (unknown) Mode of arrival: (units (unknown) date) Ambulatory unknown) (unknown) (no (unknown) (unknown) [place] # (Auto) (units ( unknown) date) (0-900) /uL unknown) (unknown) (no (unknown) (unknown) [place] # (Auto) (units ( unknown) date) 500 (0-900) /uL unknown) (unknown) (no (unknown) (unknown) [place] % (Auto) (units ( unknown) date) (3-14) % unknown) (unknown) (no (unknown) (unknown) [place] % (Auto) (units ( unknown) date) 6.4 (3-14) % unknown) (unknown) (no (unknown) (unknown) Narrative: (units (unk nown) date) unknown) (unknown) (no (unknown) (unknown) Nausea (units (unkno wn) date) unknown) (unknown) (no (unknown) (unknown) Neck: supple (units (u nknown) date) unknown) (unknown) (no (unknown) (unknown) Neurologic: (units (un known) date) Grossly unknown) neurologically intact with no obvious asymmetries or (unknown) (no (unknown) (unknown) Neut # (Auto) (units ( unknown) date) (9728-2559) /uL unknown) (unknown) (no (unknown) (unknown) Neut # (Auto) (units ( unknown) date) 4200 (8102-9305) unknown) /uL (unknown) (no (unknown) (unknown) Neut % (Auto) (units ( unknown) date) (50-75) % unknown) (unknown) (no (unknown) (unknown) Neut % (Auto) (units ( unknown) date) 54.5 (50-75) % unknown) (unknown) (no (unknown) (unknown) No Action (units (unkn own) date) unknown) (unknown) (no (unknown) (unknown) Ordered: (units (unkno wn) date) unknown) (unknown) (no (unknown) (unknown) Orders (units (unkno wn) date) unknown) (unknown) (no (unknown) (unknown) Oxygen Delivery (units (unknown) date) Method 02/01/22 unknown) 19:44 (unknown) (no (unknown) (unknown) Oxygen Delivery (units (unknown) date) Method Room Air unknown) (unknown) (no (unknown) (unknown) PTSD (units (unkno wn) date) (post-traumatic unknown) stress disorder) (unknown) (no (unknown) (unknown) Patient History (units (unknown) date) unknown) (unknown) (no (unknown) (unknown) Patient: (units (unkno wn) date) Joan Christy unknown) MR#: (unknown) (no (unknown) (unknown) Plt Count (units (unkn own) date) (150-400) X103/uL unknown) (unknown) (no (unknown) (unknown) Plt Count 329 (units ( unknown) date) (150-400) X103/uL unknown) (unknown) (no (unknown) (unknown) Potassium (units (unkn own) date) (3.4-5.1) mmol/L unknown) (unknown) (no (unknown) (unknown) Potassium 3.6 (units ( unknown) date) (3.4-5.1) mmol/L unknown) (unknown) (no (unknown) (unknown) Prescriptions: (units (unknown) date) unknown) (unknown) (no (unknown) (unknown) Previous Rx's (units ( unknown) date) unknown) (unknown) (no (unknown) (unknown) Psych: (units (unkno wn) date) Cooperative, unknown) appropriate insight and affect (unknown) (no (unknown) (unknown) Pulse Oximetry (units (unknown) date) 99 02/01/22 19:44 unknown) (unknown) (no (unknown) (unknown) Pulse Oximetry (units (unknown) date) 99 unknown) (unknown) (no (unknown) (unknown) Pulse Rate 75 (units ( unknown) date) 02/01/22 19:44 unknown) (unknown) (no (unknown) (unknown) Pulse Rate 75 (units ( unknown) date) unknown) (unknown) (no (unknown) (unknown) RBC (4.0-5.2) (units ( unknown) date) X106/uL unknown) (unknown) (no (unknown) (unknown) RBC 4.82 (units (unkno wn) date) (4.0-5.2) X106/uL unknown) (unknown) (no (unknown) (unknown) RDW (11.6-14.8) (units (unknown) date) % unknown) (unknown) (no (unknown) (unknown) RDW 12.9 (units (unkno wn) date) (11.6-14.8) % unknown) (unknown) (no (unknown) (unknown) Referrals: (units (unk nown) date) unknown) (unknown) (no (unknown) (unknown) Related Data (units (u nknown) date) unknown) (unknown) (no (unknown) (unknown) Remainder of (units (u nknown) date) complete review unknown) of systems is otherwise unremarkable except for (unknown) (no (unknown) (unknown) Respiratory Rate (units (unknown) date) 14 02/01/22 19:44 unknown) (unknown) (no (unknown) (unknown) Respiratory Rate (units (unknown) date) 14 unknown) (unknown) (no (unknown) (unknown) Respiratory: (units (u nknown) date) Lungs are clear unknown) to auscultation, no wheezing no rales no rhonchi. (unknown) (no (unknown) (unknown) Result diagrams: (units (unknown) date) unknown) (unknown) (no (unknown) (unknown) Review of (units (unkn own) date) Systems unknown) (unknown) (no (unknown) (unknown) Wilbert Brian, (units ( unknown) date) CLEARANCE COORDINATOR [Primary unknown) Care Provider] (unknown) (no (unknown) (unknown) Rx Instructions: (units (unknown) date) unknown) (unknown) (no (unknown) (unknown) SVT. She does (units ( unknown) date) note that she is unknown) been having increasing sleep disturbances due to (unknown) (no (unknown) (unknown) See Rx (units (unkno wn) date) Instructions unknown) .Route .MEDSUPPLY Qty: 1 0RF (unknown) (no (unknown) (unknown) She does not (units (u nknown) date) consume unknown) significant stimulants including caffeine, energy drinks, (unknown) (no (unknown) (unknown) Signed By: (units (unk nown) date) unknown) (unknown) (no (unknown) (unknown) Skin: Warm and (units (unknown) date) dry, no rashes unknown) (unknown) (no (unknown) (unknown) Smoking Status: (units (unknown) date) Former smoker unknown) (unknown) (no (unknown) (unknown) Social History (units (unknown) date) (Reviewed unknown) 02/01/22 @ 23:15 by Mimi Major MD) (unknown) (no (unknown) (unknown) Sodium (137-145) (units (unknown) date) mmol/L unknown) (unknown) (no (unknown) (unknown) Sodium 139 (units (unk nown) date) (137-145) mmol/L unknown) (unknown) (no (unknown) (unknown) Source: patient (units (unknown) date) unknown) (unknown) (no (unknown) (unknown) Splint #1 ea (units (u nknown) date) 08/01/21 unknown) (unknown) (no (unknown) (unknown) Stated (units (unkno wn) date) Complaint: Heart unknown) palpitations (unknown) (no (unknown) (unknown) Substance Use (units ( unknown) date) Type: does not unknown) use (unknown) (no (unknown) (unknown) TSH (0.47-4.68) (units (unknown) date) uIU/mL unknown) (unknown) (no (unknown) (unknown) TSH 0.210 L (units (un known) date) (0.47-4.68) unknown) uIU/mL (unknown) (no (unknown) (unknown) Temperature 96.6 (units (unknown) date) F L 02/01/22 unknown) 19:44 (unknown) (no (unknown) (unknown) Temperature 96.6 (units (unknown) date) F L unknown) (unknown) (no (unknown) (unknown) Thyroid (units (unkno wn) date) Stimulating unknown) Hormone Stat (unknown) (no (unknown) (unknown) Time Seen by (units (u nknown) date) Provider: unknown) 02/01/22 22:10 (unknown) (no (unknown) (unknown) Tobacco: How (units (u nknown) date) many years used: unknown) 5 (unknown) (no (unknown) (unknown) Total Bilirubin (units (unknown) date) (0.2-1.3) mg/dL unknown) (unknown) (no (unknown) (unknown) Total Bilirubin (units (unknown) date) 2.6 H (0.2-1.3) unknown) mg/dL (unknown) (no (unknown) (unknown) Total Creatine (units (unknown) date) Kinase (30-135) unknown) U/L (unknown) (no (unknown) (unknown) Total Creatine (units (unknown) date) Kinase 39 unknown) (30-135) U/L (unknown) (no (unknown) (unknown) Total Protein (units ( unknown) date) (6.3-8.2) g/dL unknown) (unknown) (no (unknown) (unknown) Total Protein (units ( unknown) date) 7.8 (6.3-8.2) unknown) g/dL (unknown) (no (unknown) (unknown) Troponin + CK (units ( unknown) date) Cardiac Panel unknown) Stat (unknown) (no (unknown) (unknown) Troponin I < (units (u nknown) date) 0.012 unknown) (0.01-0.034) ng/mL (unknown) (no (unknown) (unknown) Troponin I (units (unk nown) date) (0.01-0.034) unknown) ng/mL (unknown) (no (unknown) (unknown) Vital Signs - 8 (units (unknown) date) hr unknown) (unknown) (no (unknown) (unknown) Vital Signs (units (un known) date) unknown) (unknown) (no (unknown) (unknown) Vital signs: (units (u nknown) date) unknown) (unknown) (no (unknown) (unknown) WBC (4.5-11.0) (units (unknown) date) X103/uL unknown) (unknown) (no (unknown) (unknown) WBC 7.8 (units (unkno wn) date) (4.5-11.0) unknown) X103/uL (unknown) (no (unknown) (unknown) XR chest 1V Stat (units (unknown) date) unknown) (unknown) (no (unknown) (unknown) [Embedded Image (units (unknown) date) Not Available] unknown) (unknown) (no (unknown) (unknown) abnormalities (units ( unknown) date) unknown) (unknown) (no (unknown) (unknown) ago. (units (unkno wn) date) unknown) (unknown) (no (unknown) (unknown) alcohol intake (units (unknown) date) frequency: unknown) holidays/special occasions only (unknown) (no (unknown) (unknown) alcohol intake: (units (unknown) date) current unknown) (unknown) (no (unknown) (unknown) and she is safe (units (unknown) date) for discharge unknown) home (unknown) (no (unknown) (unknown) cocaine or (units (unk nown) date) methamphetamine. unknown) Denies recreational opiates and IV drug use. No (unknown) (no (unknown) (unknown) coherent (units (unkno wn) date) history. unknown) Well-nourished well-developed (unknown) (no (unknown) (unknown) enough concerned (units (unknown) date) that she is unknown) coming in for further evaluation. She reports no (unknown) (no (unknown) (unknown) further (units (unkno wn) date) evaluation done. unknown) She notes that she is continued to have palpitations (unknown) (no (unknown) (unknown) it is she will (units (unknown) date) need to follow up unknown) with the primary care physician at this point (unknown) (no (unknown) (unknown) metronidazole (units ( unknown) date) Allergy Mild unknown) 'lots of Verified 10/07/21 22:21 (unknown) (no (unknown) (unknown) not particularly (units (unknown) date) painful. She had unknown) an EKG for evaluation at that time but has no (unknown) (no (unknown) (unknown) not suggest any (units (unknown) date) evidence of unknown) cardiomyopathy, pericarditis or myocarditis. TSH is (unknown) (no (unknown) (unknown) omeprazole 40 mg (units (unknown) date) capsule,delayed unknown) 40 mg PO BID #60 caps 04/04/21 (unknown) (no (unknown) (unknown) omeprazole 40 mg (units (unknown) date) capsule,delayed unknown) release(DR/EC) (unknown) (no (unknown) (unknown) other diet or (units ( unknown) date) metabolic unknown) supplements. No nausea, vomiting, diarrhea, abdominal (unknown) (no (unknown) (unknown) over the years (units (unknown) date) but the last unknown) month it is gotten particularly troublesome and (unknown) (no (unknown) (unknown) pain, headache. (units (unknown) date) She notes that unknown) she is successfully quit smoking about a month (unknown) (no (unknown) (unknown) pounding enough (units (unknown) date) that she felt unknown) that she was going to pass out. This caused (unknown) (no (unknown) (unknown) quit status: (units (u nknown) date) considering unknown) quitting (unknown) (no (unknown) (unknown) recent viral (units (u nknown) date) symptoms, unknown) dyspnea, orthopnea. She does note that due to her work (unknown) (no (unknown) (unknown) release (units (unkno wn) date) unknown) (unknown) (no (unknown) (unknown) respiratory (units (un known) date) infection a unknown) couple of weeks ago. Lab work, EKG and chest x-ray did (unknown) (no (unknown) (unknown) rhythms and (units (un known) date) importance of unknown) scheduled and regular sleep. Questions are answered (unknown) (no (unknown) (unknown) schedule her (units (u nknown) date) sleep schedule unknown) has been increasingly chaotic over the last month. (unknown) (no (unknown) (unknown) second hand (units (un known) date) exposure: Yes unknown) (father's home and when smoking in car w/ windows up. (unknown) (no (unknown) (unknown) she is not (units (unk nown) date) losing weight and unknown) does not have fine motor tremor to suggest (unknown) (no (unknown) (unknown) significant (units (un known) date) hyperthyroidism. unknown) Reassurance is given talked about circadian (unknown) (no (unknown) (unknown) slightly (units (unkno wn) date) suppressed T4 unknown) will be added. Will contact her if the T4 is off and if (unknown) (no (unknown) (unknown) substance use (units ( unknown) date) type: does not unknown) use (unknown) (no (unknown) (unknown) that included in (units (unknown) date) the HPI. unknown) (unknown) (no (unknown) (unknown) tobacco type: (units ( unknown) date) cigarettes unknown) (unknown) (no (unknown) (unknown) today she had an (units (unknown) date) event with a unknown) couple of irregular beats that were hard and (unknown) (no (unknown) (unknown) unremarkable. (units ( unknown) date) She is having unknown) mild sinus arrhythmia but no pathologic rhythms or (unknown) (no (unknown) (unknown) vomiting' (units (unkn own) date) unknown) (unknown) (no (unknown) (unknown) with (units (unkno wn) date) palpitations that unknown) seem to be getting worse. She 1st noticed at the age of (unknown) (no (unknown) (unknown) work but no (units (un known) date) other significant unknown) abnormalities. She does note she had upper Result panel 79 (unknown) (no (unknown) (unknown) (no value) (units (unk nown) date) unknown) (unknown) (no (unknown) (unknown) (DME) Splint (units (u nknown) date) unknown) (unknown) (no (unknown) (unknown) ) (units (unkno wn) date) unknown) (unknown) (no (unknown) (unknown) 1.? No acute (units (u nknown) date) cardiopulmonary unknown) disease. (unknown) (no (unknown) (unknown) 12/01/22 12/01/22 (units (unknown) date) 02/01/22 unknown) Range/Units (unknown) (no (unknown) (unknown) 02/01/22 20:46 (units (unknown) date) unknown) (unknown) (no (unknown) (unknown) 02/01/22 23:12 (units (unknown) date) unknown) (unknown) (no (unknown) (unknown) 02/01/22 23:47 (units (unknown) date) unknown) (unknown) (no (unknown) (unknown) 02/01/22 (units (unkno wn) date) Range/Units unknown) (unknown) (no (unknown) (unknown) 02/01/22 (units (unkno wn) date) unknown) (unknown) (no (unknown) (unknown) 02/02/22 00:54 (units (unknown) date) unknown) (unknown) (no (unknown) (unknown) 15 that she would (units (unknown) date) have an occasional unknown) irregular beat that was uncomfortable but (unknown) (no (unknown) (unknown) 19:44 (units (unkno wn) date) unknown) (unknown) (no (unknown) (unknown) 21-year-old woman (units (unknown) date) with a history of unknown) intermittent reflux type symptoms presents (unknown) (no (unknown) (unknown) 21-year-old woman (units (unknown) date) with increasing unknown) palpitations. Workup is relatively (unknown) (no (unknown) (unknown) 23:47 23:47 23:47 (units (unknown) date) unknown) (unknown) (no (unknown) (unknown) 23:47 (units (unkno wn) date) unknown) (unknown) (no (unknown) (unknown) 40 mg PO BID Qty: (units (unknown) date) 60 0RF unknown) (unknown) (no (unknown) (unknown) ? (units (unkno wn) date) unknown) (unknown) (no (unknown) (unknown) ALT (<35) IU/L (units (unknown) date) unknown) (unknown) (no (unknown) (unknown) ALT 27 (<35) IU/L (units (unknown) date) unknown) (unknown) (no (unknown) (unknown) AST (14-36) IU/L (units (unknown) date) unknown) (unknown) (no (unknown) (unknown) AST 31 (14-36) (units (unknown) date) IU/L unknown) (unknown) (no (unknown) (unknown) Abdomen: Soft, (units (unknown) date) nontender, good unknown) bowel tones, no flank pain (unknown) (no (unknown) (unknown) Abdominal pain (units (unknown) date) unknown) (unknown) (no (unknown) (unknown) Abdominal pain, (units (unknown) date) left upper unknown) quadrant (unknown) (no (unknown) (unknown) Activity (units (unkno wn) date) Restrictions/Addit unknown) ional Instructions: (unknown) (no (unknown) (unknown) Age/Sex: 21 / F (units (unknown) date) unknown) (unknown) (no (unknown) (unknown) Albumin (3.5-5.0) (units (unknown) date) g/dL unknown) (unknown) (no (unknown) (unknown) Albumin 4.4 (units (un known) date) (3.5-5.0) g/dL unknown) (unknown) (no (unknown) (unknown) Albumin/Globulin (units (unknown) date) Ratio (1.0-2.8) unknown) (unknown) (no (unknown) (unknown) Albumin/Globulin (units (unknown) date) Ratio 1.3 unknown) (1.0-2.8) (unknown) (no (unknown) (unknown) Alkaline (units (unkno wn) date) Phosphatase unknown) (38-126) U/L (unknown) (no (unknown) (unknown) Alkaline (units (unkno wn) date) Phosphatase 82 unknown) (38-126) U/L (unknown) (no (unknown) (unknown) Allergies (units (unkn own) date) unknown) (unknown) (no (unknown) (unknown) Allergy/AdvReac (units (unknown) date) Type Severity unknown) Reaction Status Date / Time (unknown) (no (unknown) (unknown) Anxiety (units (unkno wn) date) unknown) (unknown) (no (unknown) (unknown) Arrhythmia. (units (un known) date) Normal intervals, unknown) normal axis (unknown) (no (unknown) (unknown) As directed (units (un known) date) unknown) (unknown) (no (unknown) (unknown) BUN (7-17) mg/dL (units (unknown) date) unknown) (unknown) (no (unknown) (unknown) BUN 8 (7-17) (units (u nknown) date) mg/dL unknown) (unknown) (no (unknown) (unknown) BUN/Creatinine (units (unknown) date) Ratio (-) unknown) (unknown) (no (unknown) (unknown) BUN/Creatinine (units (unknown) date) Ratio 15.1 (6-22) unknown) (unknown) (no (unknown) (unknown) Baso # (Auto) (units ( unknown) date) (0-100) /uL unknown) (unknown) (no (unknown) (unknown) Baso # (Auto) 100 (units (unknown) date) (0-100) /uL unknown) (unknown) (no (unknown) (unknown) Baso % (Auto) (units ( unknown) date) (0-2) % unknown) (unknown) (no (unknown) (unknown) Baso % (Auto) 0.7 (units (unknown) date) (0-2) % unknown) (unknown) (no (unknown) (unknown) Blood Pressure (units (unknown) date) 107/59 L 02/01/22 unknown) 19:44 (unknown) (no (unknown) (unknown) Blood Pressure (units (unknown) date) 107/59 L unknown) (unknown) (no (unknown) (unknown) Bones and chest (units (unknown) date) wall:? No unknown) suspicious bony lesions.? Overlying soft tissues (unknown) (no (unknown) (unknown) CK-MB (CK-2) Rel (units (unknown) date) Index TNP unknown) (unknown) (no (unknown) (unknown) CK-MB (CK-2) Rel (units (unknown) date) Index unknown) (unknown) (no (unknown) (unknown) CK-MB (CK-2) TNP (units (unknown) date) unknown) (unknown) (no (unknown) (unknown) CK-MB (CK-2) (units (u nknown) date) unknown) (unknown) (no (unknown) (unknown) Calcium (units (unkno wn) date) (8.4-10.2) mg/dL unknown) (unknown) (no (unknown) (unknown) Calcium 8.9 (units (un known) date) (8.4-10.2) mg/dL unknown) (unknown) (no (unknown) (unknown) Carbon Dioxide (units (unknown) date) (22-32) mmol/L unknown) (unknown) (no (unknown) (unknown) Carbon Dioxide 24 (units (unknown) date) (22-32) mmol/L unknown) (unknown) (no (unknown) (unknown) Cardiac: Regular (units (unknown) date) rate and rhythm no unknown) murmurs no bruits (unknown) (no (unknown) (unknown) Chest x-ray: (units (u nknown) date) unknown) (unknown) (no (unknown) (unknown) Chief Complaint: (units (unknown) date) Arrhythmia/Palpita unknown) tions (unknown) (no (unknown) (unknown) Chloride (98-107) (units (unknown) date) mmol/L unknown) (unknown) (no (unknown) (unknown) Chloride 104 (units (u nknown) date) (98-107) mmol/L unknown) (unknown) (no (unknown) (unknown) Clinical (units (o wn) date) Impression: unknown) (unknown) (no (unknown) (unknown) Complete Blood (units (unknown) date) Count AUTO DIFF unknown) Stat (unknown) (no (unknown) (unknown) Comprehensive (units ( unknown) date) Metabolic Panel unknown) Stat (unknown) (no (unknown) (unknown) Constipation (units (u nknown) date) unknown) (unknown) (no (unknown) (unknown) Course (units (o wn) date) unknown) (unknown) (no (unknown) (unknown) Creatinine (units (unk nown) date) (0.52-1.04) mg/dL unknown) (unknown) (no (unknown) (unknown) Creatinine 0.53 (units (unknown) date) (0.52-1.04) mg/dL unknown) (unknown) (no (unknown) (unknown) : 2000 (units (unknown) date) Acct:[id number] unknown) (unknown) (no (unknown) (unknown) Date of Service: (units (unknown) date) 02/01/22 unknown) (unknown) (no (unknown) (unknown) Departure (units (unkn own) date) unknown) (unknown) (no (unknown) (unknown) Depression (units (unk nown) date) unknown) (unknown) (no (unknown) (unknown) Dictated by: (units (u nknown) date) Ambrose Ochoa unknownApurva Torres on 02/02/2022 at 0:46 ? ? (unknown) (no (unknown) (unknown) Discharge Plan (units (unknown) date) unknown) (unknown) (no (unknown) (unknown) ECG Data (units (unkno wn) date) unknown) (unknown) (no (unknown) (unknown) ED Orders (units (unkn own) date) unknown) (unknown) (no (unknown) (unknown) EKG-12 Lead Stat (units (unknown) date) unknown) (unknown) (no (unknown) (unknown) ER Physician: (units ( unknown) date) Mimi Major unknown) (unknown) (no (unknown) (unknown) Emergency Report (units (unknown) date) unknown) (unknown) (no (unknown) (unknown) Eos # (Auto) (units (u nknown) date) (0-450) /uL unknown) (unknown) (no (unknown) (unknown) Eos # (Auto) 200 (units (unknown) date) (0-450) /uL unknown) (unknown) (no (unknown) (unknown) Eos % (Auto) (units (u nknown) date) (2-4) % unknown) (unknown) (no (unknown) (unknown) Eos % (Auto) 2.6 (units (unknown) date) (2-4) % unknown) (unknown) (no (unknown) (unknown) Epigastric (units (unk nown) date) abdominal pain unknown) (unknown) (no (unknown) (unknown) Estimated GFR > (units (unknown) date) 60 (>60) mL/min unknown) (unknown) (no (unknown) (unknown) Estimated GFR (units ( unknown) date) (>60) mL/min unknown) (unknown) (no (unknown) (unknown) Exam (units (unkno wn) date) unknown) (unknown) (no (unknown) (unknown) Extremities: No (units (unknown) date) trauma, well unknown) perfused (unknown) (no (unknown) (unknown) FINDINGS:? (units (unk nown) date) unknown) (unknown) (no (unknown) (unknown) Folliculitis (units (u nknown) date) unknown) (unknown) (no (unknown) (unknown) Free T4, Direct (units (unknown) date) Thyroxine Stat unknown) (unknown) (no (unknown) (unknown) Full and (units (unkno wn) date) symmetrical air unknown) movement (unknown) (no (unknown) (unknown) GERD (units (unkno wn) date) (gastroesophageal unknown) reflux disease) (unknown) (no (unknown) (unknown) General (units (unkno wn) date) unknown) (unknown) (no (unknown) (unknown) General: Healthy (units (unknown) date) appearing, in no unknown) acute distress. Able to give a complete and (unknown) (no (unknown) (unknown) Globulin (units (unkno wn) date) (1.7-4.1) g/dL unknown) (unknown) (no (unknown) (unknown) Globulin 3.4 (units (u nknown) date) (1.7-4.1) g/dL unknown) (unknown) (no (unknown) (unknown) Glucose (70-100) (units (unknown) date) mg/dL unknown) (unknown) (no (unknown) (unknown) Glucose 84 (units (unk nown) date) (70-100) mg/dL unknown) (unknown) (no (unknown) (unknown) HEENT: Moist (units (u nknown) date) mucous membranes, unknown) normal sclera with reactive pupils, (unknown) (no (unknown) (unknown) HPI - (units (unkno wn) date) Arrhythmia/Palpita unknown) tions (unknown) (no (unknown) (unknown) HPI narrative: (units (unknown) date) unknown) (unknown) (no (unknown) (unknown) Hct (36-46) % (units ( unknown) date) unknown) (unknown) (no (unknown) (unknown) Hct 40.2 (36-46) (units (unknown) date) % unknown) (unknown) (no (unknown) (unknown) Hgb (12.0-16.0) (units (unknown) date) g/dL unknown) (unknown) (no (unknown) (unknown) Hgb 13.6 (units (unkno wn) date) (12.0-16.0) g/dL unknown) (unknown) (no (unknown) (unknown) History of (units (unk nown) date) Present Illness unknown) (unknown) (no (unknown) (unknown) IMPRESSION:? (units (u nknown) date) unknown) (unknown) (no (unknown) (unknown) Imaging Data (units (u nknown) date) unknown) (unknown) (no (unknown) (unknown) In the meantime, (units (unknown) date) doing what you can unknown) to keep your sleep patterns regular and (unknown) (no (unknown) (unknown) Initial Vital (units ( unknown) date) Signs unknown) (unknown) (no (unknown) (unknown) Initial Vital (units ( unknown) date) Signs: unknown) (unknown) (no (unknown) (unknown) Injury of right (units (unknown) date) hand unknown) (unknown) (no (unknown) (unknown) Instructions: DI (units (unknown) date) for unknown) Hyperthyroidism, DI for Arrhythmias (unknown) (no (unknown) (unknown) Interpretation: (units (unknown) date) unknown) (unknown) (no (unknown) (unknown) [facility] (units (unknown) date) [address] [place] [id number] unknown) [place] [address] (unknown) (no (unknown) (unknown) Lab Data (units (unkno wn) date) unknown) (unknown) (no (unknown) (unknown) Lab Results (units (un known) date) unknown) (unknown) (no (unknown) (unknown) Labs: (units (unkno wn) date) unknown) (unknown) (no (unknown) (unknown) Lungs and (units (unkn own) date) pleura:? Lungs are unknown) clear.? No pleural effusions or pneumothorax.? (unknown) (no (unknown) (unknown) Lymph # (Auto) (units (unknown) date) ([id number]) /uL unknown) (unknown) (no (unknown) (unknown) Lymph # (Auto) (units (unknown) date) 2800 ([id number]) unknown) /uL (unknown) (no (unknown) (unknown) Lymph % (Auto) (units (unknown) date) (25-40) % unknown) (unknown) (no (unknown) (unknown) Lymph % (Auto) (units (unknown) date) 35.8 (25-40) % unknown) (unknown) (no (unknown) (unknown) [id number] (units (unk nown) date) unknown) (unknown) (no (unknown) (unknown) MCH (26-34) PG (units (unknown) date) unknown) (unknown) (no (unknown) (unknown) MCH 28.1 (26-34) (units (unknown) date) PG unknown) (unknown) (no (unknown) (unknown) MCHC (30-36) % (units (unknown) date) unknown) (unknown) (no (unknown) (unknown) MCHC 33.7 (30-36) (units (unknown) date) % unknown) (unknown) (no (unknown) (unknown) MCV (80-100) fL (units (unknown) date) unknown) (unknown) (no (unknown) (unknown) MCV 83.5 (80-100) (units (unknown) date) fL unknown) (unknown) (no (unknown) (unknown) MDM - (units (unkno wn) date) Arrhythmia/Palpita unknown) tions (unknown) (no (unknown) (unknown) MDM Narrative (units ( unknown) date) unknown) (unknown) (no (unknown) (unknown) Mediastinum:? (units ( unknown) date) Mediastinal unknown) contours appear normal.? Heart size is normal.? (unknown) (no (unknown) (unknown) Medical History (units (unknown) date) (Reviewed 02/01/22 unknown) @ 23:15 by Mimi Major MD) (unknown) (no (unknown) (unknown) Medical decision (units (unknown) date) making narrative: unknown) (unknown) (no (unknown) (unknown) Medication (units (unk nown) date) Instructions unknown) Recorded (unknown) (no (unknown) (unknown) Mode of arrival: (units (unknown) date) Ambulatory unknown) (unknown) (no (unknown) (unknown) [place] # (Auto) (units ( unknown) date) (0-900) /uL unknown) (unknown) (no (unknown) (unknown) [place] # (Auto) 500 (units (unknown) date) (0-900) /uL unknown) (unknown) (no (unknown) (unknown) [place] % (Auto) (units ( unknown) date) (3-14) % unknown) (unknown) (no (unknown) (unknown) [place] % (Auto) 6.4 (units (unknown) date) (3-14) % unknown) (unknown) (no (unknown) (unknown) Narrative: (units (unk nown) date) unknown) (unknown) (no (unknown) (unknown) Nausea (units (unkno wn) date) unknown) (unknown) (no (unknown) (unknown) Neck: supple (units (u nknown) date) unknown) (unknown) (no (unknown) (unknown) Neurologic: (units (un known) date) Grossly unknown) neurologically intact with no obvious asymmetries or (unknown) (no (unknown) (unknown) Neut # (Auto) (units ( unknown) date) (6884-7913) /uL unknown) (unknown) (no (unknown) (unknown) Neut # (Auto) (units ( unknown) date) 4200 (0512-5884) unknown) /uL (unknown) (no (unknown) (unknown) Neut % (Auto) (units ( unknown) date) (50-75) % unknown) (unknown) (no (unknown) (unknown) Neut % (Auto) (units ( unknown) date) 54.5 (50-75) % unknown) (unknown) (no (unknown) (unknown) No Action (units (unkn own) date) unknown) (unknown) (no (unknown) (unknown) No acute ischemic (units (unknown) date) changes unknown) (unknown) (no (unknown) (unknown) Ordered: (units (unkno wn) date) unknown) (unknown) (no (unknown) (unknown) Orders (units (unkno wn) date) unknown) (unknown) (no (unknown) (unknown) Oxygen Delivery (units (unknown) date) Method 02/01/22 unknown) 19:44 (unknown) (no (unknown) (unknown) Oxygen Delivery (units (unknown) date) Method Room Air unknown) (unknown) (no (unknown) (unknown) PTSD (units (unkno wn) date) (post-traumatic unknown) stress disorder) (unknown) (no (unknown) (unknown) Patient (units (unkno wn) date) Disposition: Home unknown) (unknown) (no (unknown) (unknown) Patient History (units (unknown) date) unknown) (unknown) (no (unknown) (unknown) Patient: (units (unkno wn) date) Joan Christy unknown) MR#: (unknown) (no (unknown) (unknown) Plt Count (units (unkn own) date) (150-400) X103/uL unknown) (unknown) (no (unknown) (unknown) Plt Count 329 (units ( unknown) date) (150-400) X103/uL unknown) (unknown) (no (unknown) (unknown) Potassium (units (unkn own) date) (3.4-5.1) mmol/L unknown) (unknown) (no (unknown) (unknown) Potassium 3.6 (units ( unknown) date) (3.4-5.1) mmol/L unknown) (unknown) (no (unknown) (unknown) Prescriptions: (units (unknown) date) unknown) (unknown) (no (unknown) (unknown) Previous Rx's (units ( unknown) date) unknown) (unknown) (no (unknown) (unknown) Psych: (units (unkno wn) date) Cooperative, unknown) appropriate insight and affect (unknown) (no (unknown) (unknown) Pulse Oximetry 99 (units (unknown) date) 02/01/22 19:44 unknown) (unknown) (no (unknown) (unknown) Pulse Oximetry 99 (units (unknown) date) unknown) (unknown) (no (unknown) (unknown) Pulse Rate 75 (units ( unknown) date) 02/01/22 19:44 unknown) (unknown) (no (unknown) (unknown) Pulse Rate 75 (units ( unknown) date) unknown) (unknown) (no (unknown) (unknown) RBC (4.0-5.2) (units ( unknown) date) X106/uL unknown) (unknown) (no (unknown) (unknown) RBC 4.82 (units (unkno wn) date) (4.0-5.2) X106/uL unknown) (unknown) (no (unknown) (unknown) RDW (11.6-14.8) % (units (unknown) date) unknown) (unknown) (no (unknown) (unknown) RDW 12.9 (units (unkno wn) date) (11.6-14.8) % unknown) (unknown) (no (unknown) (unknown) Radiologist's (units ( unknown) date) Impresson: unknown) (unknown) (no (unknown) (unknown) Referrals: (units (unk nown) date) unknown) (unknown) (no (unknown) (unknown) Related Data (units (u nknown) date) unknown) (unknown) (no (unknown) (unknown) Remainder of (units (u nknown) date) complete review of unknown) systems is otherwise unremarkable except for (unknown) (no (unknown) (unknown) Respiratory Rate (units (unknown) date) 14 02/01/22 19:44 unknown) (unknown) (no (unknown) (unknown) Respiratory Rate (units (unknown) date) 14 unknown) (unknown) (no (unknown) (unknown) Respiratory: (units (u nknown) date) Lungs are clear to unknown) auscultation, no wheezing no rales no rhonchi. (unknown) (no (unknown) (unknown) Result diagrams: (units (unknown) date) unknown) (unknown) (no (unknown) (unknown) Review of Systems (units (unknown) date) unknown) (unknown) (no (unknown) (unknown) Wilbert Brian, (units ( unknown) date) CLEARANCE COORDINATOR [Primary Care unknown) Provider] (unknown) (no (unknown) (unknown) Rx Instructions: (units (unknown) date) unknown) (unknown) (no (unknown) (unknown) SVT. She does (units ( unknown) date) note that she is unknown) been having increasing sleep disturbances due to (unknown) (no (unknown) (unknown) See Rx (units (unkno wn) date) Instructions unknown) .Route .MEDSUPPLY Qty: 1 0RF (unknown) (no (unknown) (unknown) She does not (units (u nknown) date) consume unknown) significant stimulants including caffeine, energy drinks, (unknown) (no (unknown) (unknown) Signed By: (units (unk nown) date) unknown) (unknown) (no (unknown) (unknown) Sinus arrhythmia (units (unknown) date) unknown) (unknown) (no (unknown) (unknown) Sinus rhythm at a (units (unknown) date) rate of 70 with unknown) occasional sinus (unknown) (no (unknown) (unknown) Skin: Warm and (units (unknown) date) dry, no rashes unknown) (unknown) (no (unknown) (unknown) Smoking Status: (units (unknown) date) Former smoker unknown) (unknown) (no (unknown) (unknown) Social History (units (unknown) date) (Reviewed 02/01/22 unknown) @ 23:15 by Mimi Major MD) (unknown) (no (unknown) (unknown) Sodium (137-145) (units (unknown) date) mmol/L unknown) (unknown) (no (unknown) (unknown) Sodium 139 (units (unk nown) date) (137-145) mmol/L unknown) (unknown) (no (unknown) (unknown) Source: patient (units (unknown) date) unknown) (unknown) (no (unknown) (unknown) Splint #1 ea (units (u nknown) date) 08/01/21 unknown) (unknown) (no (unknown) (unknown) Stated Complaint: (units (unknown) date) Heart palpitations unknown) (unknown) (no (unknown) (unknown) Substance Use (units ( unknown) date) Type: does not use unknown) (unknown) (no (unknown) (unknown) Surgical changes (units (unknown) date) and devices:? unknown) None.? (unknown) (no (unknown) (unknown) TSH (0.47-4.68) (units (unknown) date) uIU/mL unknown) (unknown) (no (unknown) (unknown) TSH 0.210 L (units (un known) date) (0.47-4.68) uIU/mL unknown) (unknown) (no (unknown) (unknown) Temperature 96.6 (units (unknown) date) F L 02/01/22 19:44 unknown) (unknown) (no (unknown) (unknown) Temperature 96.6 (units (unknown) date) F L unknown) (unknown) (no (unknown) (unknown) Thank you for (units ( unknown) date) coming in today unknown) (unknown) (no (unknown) (unknown) This is not (units (un known) date) life-threatening unknown) and it is not a precursor of a life-threatening (unknown) (no (unknown) (unknown) Thyroid (units (unkno wn) date) Stimulating unknown) Hormone Stat (unknown) (no (unknown) (unknown) Time Seen by (units (u nknown) date) Provider: 02/01/22 unknown) 22:10 (unknown) (no (unknown) (unknown) Tobacco: How many (units (unknown) date) years used: 5 unknown) (unknown) (no (unknown) (unknown) Total Bilirubin (units (unknown) date) (0.2-1.3) mg/dL unknown) (unknown) (no (unknown) (unknown) Total Bilirubin (units (unknown) date) 2.6 H (0.2-1.3) unknown) mg/dL (unknown) (no (unknown) (unknown) Total Creatine (units (unknown) date) Kinase (30-135) unknown) U/L (unknown) (no (unknown) (unknown) Total Creatine (units (unknown) date) Kinase 39 (30-135) unknown) U/L (unknown) (no (unknown) (unknown) Total Protein (units ( unknown) date) (6.3-8.2) g/dL unknown) (unknown) (no (unknown) (unknown) Total Protein 7.8 (units (unknown) date) (6.3-8.2) g/dL unknown) (unknown) (no (unknown) (unknown) Troponin + CK (units ( unknown) date) Cardiac Panel Stat unknown) (unknown) (no (unknown) (unknown) Troponin I < (units (u nknown) date) 0.012 (0.01-0.034) unknown) ng/mL (unknown) (no (unknown) (unknown) Troponin I (units (unk nown) date) (0.01-0.034) ng/mL unknown) (unknown) (no (unknown) (unknown) Vital Signs - 8 (units (unknown) date) hr unknown) (unknown) (no (unknown) (unknown) Vital Signs (units (un known) date) unknown) (unknown) (no (unknown) (unknown) Vital signs: (units (u nknown) date) unknown) (unknown) (no (unknown) (unknown) WBC (4.5-11.0) (units (unknown) date) X103/uL unknown) (unknown) (no (unknown) (unknown) WBC 7.8 (units (unkno wn) date) (4.5-11.0) X103/uL unknown) (unknown) (no (unknown) (unknown) XR chest 1V Stat (units (unknown) date) unknown) (unknown) (no (unknown) (unknown) You are having (units (unknown) date) occasional early unknown) heartbeats. This is called a sinus arrhythmia. (unknown) (no (unknown) (unknown) Your exam, EKG, (units (unknown) date) lab work and unknown) clinical workup is very reassuring. (unknown) (no (unknown) (unknown) Your lab work (units ( unknown) date) suggested that you unknown) may have mild hyper thyroidism. I added a 2nd (unknown) (no (unknown) (unknown) [Embedded Image (units (unknown) date) Not Available] unknown) (unknown) (no (unknown) (unknown) abnormalities (units ( unknown) date) unknown) (unknown) (no (unknown) (unknown) ago. (units (unkno wn) date) unknown) (unknown) (no (unknown) (unknown) alcohol intake (units (unknown) date) frequency: unknown) holidays/special occasions only (unknown) (no (unknown) (unknown) alcohol intake: (units (unknown) date) current unknown) (unknown) (no (unknown) (unknown) and she is safe (units (unknown) date) for discharge home unknown) (unknown) (no (unknown) (unknown) appear (units (unkno wn) date) unknown) (unknown) (no (unknown) (unknown) arrhythmia. It is (units (unknown) date) somewhat unknown) disconcerting. (unknown) (no (unknown) (unknown) caffeine and (units (u nknown) date) energy drinks will unknown) be helpful in decreasing heart palpitations. I (unknown) (no (unknown) (unknown) cocaine or (units (unk nown) date) methamphetamine. unknown) Denies recreational opiates and IV drug use. No (unknown) (no (unknown) (unknown) coherent history. (units (unknown) date) Well-nourished unknown) well-developed (unknown) (no (unknown) (unknown) enough concerned (units (unknown) date) that she is coming unknown) in for further evaluation. She reports no (unknown) (no (unknown) (unknown) further (units (unkno wn) date) evaluation done. unknown) She notes that she is continued to have palpitations (unknown) (no (unknown) (unknown) is normal, you do (units (unknown) date) not need any unknown) further follow-up. If this is abnormal you will (unknown) (no (unknown) (unknown) it is she will (units (unknown) date) need to follow up unknown) with the primary care physician at this point (unknown) (no (unknown) (unknown) lab tests and I (units (unknown) date) will text you unknown) later this morning with results of that. If this (unknown) (no (unknown) (unknown) maintain (units (unkno wn) date) circadian rhythms, unknown) being well hydrated and avoiding stimulants like (unknown) (no (unknown) (unknown) metronidazole (units ( unknown) date) Allergy Mild 'lots unknown) of Verified 10/07/21 22:21 (unknown) (no (unknown) (unknown) need to find a (units (unknown) date) primary care unknown) physician to talk about hyperthyroidism. (unknown) (no (unknown) (unknown) not particularly (units (unknown) date) painful. She had unknown) an EKG for evaluation at that time but has no (unknown) (no (unknown) (unknown) not suggest any (units (unknown) date) evidence of unknown) cardiomyopathy, pericarditis or myocarditis. TSH is (unknown) (no (unknown) (unknown) omeprazole 40 mg (units (unknown) date) capsule,delayed 40 unknown) mg PO BID #60 caps 04/04/21 (unknown) (no (unknown) (unknown) omeprazole 40 mg (units (unknown) date) capsule,delayed unknown) release(DR/EC) (unknown) (no (unknown) (unknown) other diet or (units ( unknown) date) metabolic unknown) supplements. No nausea, vomiting, diarrhea, abdominal (unknown) (no (unknown) (unknown) over the years (units (unknown) date) but the last month unknown) it is gotten particularly troublesome and (unknown) (no (unknown) (unknown) pain, headache. (units (unknown) date) She notes that she unknown) is successfully quit smoking about a month (unknown) (no (unknown) (unknown) pounding enough (units (unknown) date) that she felt that unknown) she was going to pass out. This caused (unknown) (no (unknown) (unknown) quit status: (units (u nknown) date) considering unknown) quitting (unknown) (no (unknown) (unknown) recent viral (units (u nknown) date) symptoms, dyspnea, unknown) orthopnea. She does note that due to her work (unknown) (no (unknown) (unknown) release (units (unkno wn) date) unknown) (unknown) (no (unknown) (unknown) respiratory (units (un known) date) infection a couple unknown) of weeks ago. Lab work, EKG and chest x-ray did (unknown) (no (unknown) (unknown) rhythms and (units (un known) date) importance of unknown) scheduled and regular sleep. Questions are answered (unknown) (no (unknown) (unknown) schedule her (units (u nknown) date) sleep schedule has unknown) been increasingly chaotic over the last month. (unknown) (no (unknown) (unknown) second hand (units (un known) date) exposure: Yes unknown) (father's home and when smoking in car w/ windows up. (unknown) (no (unknown) (unknown) she is not losing (units (unknown) date) weight and does unknown) not have fine motor tremor to suggest (unknown) (no (unknown) (unknown) significant (units (un known) date) hyperthyroidism. unknown) Reassurance is given, talked about circadian (unknown) (no (unknown) (unknown) slightly (units (unkno wn) date) suppressed T4 will unknown) be added. Will contact her if the T4 is off and if (unknown) (no (unknown) (unknown) substance use (units ( unknown) date) type: does not use unknown) (unknown) (no (unknown) (unknown) that included in (units (unknown) date) the HPI. unknown) (unknown) (no (unknown) (unknown) tobacco type: (units ( unknown) date) cigarettes unknown) (unknown) (no (unknown) (unknown) today she had an (units (unknown) date) event with a unknown) couple of irregular beats that were hard and (unknown) (no (unknown) (unknown) unremarkable. She (units (unknown) date) is having mild unknown) sinus arrhythmia but no pathologic rhythms or (unknown) (no (unknown) (unknown) unremarkable.? (units (unknown) date) unknown) (unknown) (no (unknown) (unknown) vomiting' (units (unkn own) date) unknown) (unknown) (no (unknown) (unknown) wish you the (units (u nknown) date) best. unknown) (unknown) (no (unknown) (unknown) with palpitations (units (unknown) date) that seem to be unknown) getting worse. She 1st noticed at the age of (unknown) (no (unknown) (unknown) work but no other (units (unknown) date) significant unknown) abnormalities. She does note she had upper Result panel 80 (unknown) (no date) (unknown) (unknown) 1.37 ng/dl (unkn own) Result panel 81 (unknown) (no (unknown) (unknown) (no value) (units (unk nown) date) unknown) (unknown) (no (unknown) (unknown) <Electronically (units (unknown) date) signed by Mimi Ponce unknown) MD Pedrito> (unknown) (no (unknown) (unknown) (DME) Splint (units (u nknown) date) unknown) (unknown) (no (unknown) (unknown) ) (units (unkno wn) date) unknown) (unknown) (no (unknown) (unknown) 00:00 02/02/22 (units (unknown) date) unknown) (unknown) (no (unknown) (unknown) 00:30 (units (unkno wn) date) unknown) (unknown) (no (unknown) (unknown) 01:00 02/02/22 (units (unknown) date) unknown) (unknown) (no (unknown) (unknown) 01:08 (units (unkno wn) date) unknown) (unknown) (no (unknown) (unknown) 1.? No acute (units (u nknown) date) cardiopulmonary unknown) disease. (unknown) (no (unknown) (unknown) 02/01/22 02/01/22 (units (unknown) date) 02/01/22 unknown) Range/Units (unknown) (no (unknown) (unknown) 02/01/22 02/01/22 (units (unknown) date) Range/Units unknown) (unknown) (no (unknown) (unknown) 02/01/22 20:46 (units (unknown) date) unknown) (unknown) (no (unknown) (unknown) 02/01/22 23:12 (units (unknown) date) unknown) (unknown) (no (unknown) (unknown) 02/01/22 23:47 (units (unknown) date) unknown) (unknown) (no (unknown) (unknown) 02/01/22 (units (unkno wn) date) unknown) (unknown) (no (unknown) (unknown) 02/02/22 00:54 (units (unknown) date) unknown) (unknown) (no (unknown) (unknown) 02/02/22 0337 (units ( unknown) date) unknown) (unknown) (no (unknown) (unknown) 02/02/22 (units (unkno wn) date) unknown) (unknown) (no (unknown) (unknown) 15 that she would (units (unknown) date) have an occasional unknown) irregular beat that was uncomfortable but (unknown) (no (unknown) (unknown) 19:44 02/01/22 (units (unknown) date) unknown) (unknown) (no (unknown) (unknown) 20:39 02/01/22 (units (unknown) date) unknown) (unknown) (no (unknown) (unknown) 20:39 (units (unkno wn) date) unknown) (unknown) (no (unknown) (unknown) 21-year-old woman (units (unknown) date) with a history of unknown) intermittent reflux type symptoms presents (unknown) (no (unknown) (unknown) 21-year-old woman (units (unknown) date) with increasing unknown) palpitations. Workup is relatively (unknown) (no (unknown) (unknown) 21:00 02/01/22 (units (unknown) date) unknown) (unknown) (no (unknown) (unknown) 23:08 (units (unkno wn) date) unknown) (unknown) (no (unknown) (unknown) 23:30 02/02/22 (units (unknown) date) unknown) (unknown) (no (unknown) (unknown) 23:47 23:47 23:47 (units (unknown) date) unknown) (unknown) (no (unknown) (unknown) 23:47 23:47 (units (un known) date) unknown) (unknown) (no (unknown) (unknown) 40 mg PO BID Qty: (units (unknown) date) 60 0RF unknown) (unknown) (no (unknown) (unknown) ? (units (unkno wn) date) unknown) (unknown) (no (unknown) (unknown) ALT (<35) IU/L (units (unknown) date) unknown) (unknown) (no (unknown) (unknown) ALT 27 (<35) IU/L (units (unknown) date) unknown) (unknown) (no (unknown) (unknown) AST (14-36) IU/L (units (unknown) date) unknown) (unknown) (no (unknown) (unknown) AST 31 (14-36) (units (unknown) date) IU/L unknown) (unknown) (no (unknown) (unknown) Abdomen: Soft, (units (unknown) date) nontender, good unknown) bowel tones, no flank pain (unknown) (no (unknown) (unknown) Abdominal pain (units (unknown) date) unknown) (unknown) (no (unknown) (unknown) Abdominal pain, (units (unknown) date) left upper unknown) quadrant (unknown) (no (unknown) (unknown) Activity (units (unkno wn) date) Restrictions/Addit unknown) ional Instructions: (unknown) (no (unknown) (unknown) Age/Sex: 21 / F (units (unknown) date) unknown) (unknown) (no (unknown) (unknown) Albumin (3.5-5.0) (units (unknown) date) g/dL unknown) (unknown) (no (unknown) (unknown) Albumin 4.4 (units (un known) date) (3.5-5.0) g/dL unknown) (unknown) (no (unknown) (unknown) Albumin/Globulin (units (unknown) date) Ratio (1.0-2.8) unknown) (unknown) (no (unknown) (unknown) Albumin/Globulin (units (unknown) date) Ratio 1.3 unknown) (1.0-2.8) (unknown) (no (unknown) (unknown) Alkaline (units (unkno wn) date) Phosphatase unknown) (38-126) U/L (unknown) (no (unknown) (unknown) Alkaline (units (unkno wn) date) Phosphatase 82 unknown) (38-126) U/L (unknown) (no (unknown) (unknown) Allergies (units (unkn own) date) unknown) (unknown) (no (unknown) (unknown) Allergy/AdvReac (units (unknown) date) Type Severity unknown) Reaction Status Date / Time (unknown) (no (unknown) (unknown) Anxiety (units (unkno wn) date) unknown) (unknown) (no (unknown) (unknown) Arrhythmia. (units (un known) date) Normal intervals, unknown) normal axis (unknown) (no (unknown) (unknown) As directed (units (un known) date) unknown) (unknown) (no (unknown) (unknown) BUN (7-17) mg/dL (units (unknown) date) unknown) (unknown) (no (unknown) (unknown) BUN 8 (7-17) (units (u nknown) date) mg/dL unknown) (unknown) (no (unknown) (unknown) BUN/Creatinine (units (unknown) date) Ratio (6-22) unknown) (unknown) (no (unknown) (unknown) BUN/Creatinine (units (unknown) date) Ratio 15.1 (6-22) unknown) (unknown) (no (unknown) (unknown) Baso # (Auto) (units ( unknown) date) (0-100) /uL unknown) (unknown) (no (unknown) (unknown) Baso # (Auto) 100 (units (unknown) date) (0-100) /uL unknown) (unknown) (no (unknown) (unknown) Baso % (Auto) (units ( unknown) date) (0-2) % unknown) (unknown) (no (unknown) (unknown) Baso % (Auto) 0.7 (units (unknown) date) (0-2) % unknown) (unknown) (no (unknown) (unknown) Blood Pressure (units (unknown) date) 107/59 L 118/61 unknown) (unknown) (no (unknown) (unknown) Blood Pressure (units (unknown) date) 107/59 L 02/01/22 unknown) 19:44 (unknown) (no (unknown) (unknown) Blood Pressure (units (unknown) date) 120/58 L unknown) (unknown) (no (unknown) (unknown) Blood Pressure (units (unknown) date) 122/57 L unknown) (unknown) (no (unknown) (unknown) Blood Pressure (units (unknown) date) unknown) (unknown) (no (unknown) (unknown) Bones and chest (units (unknown) date) wall:? No unknown) suspicious bony lesions.? Overlying soft tissues (unknown) (no (unknown) (unknown) CK-MB (CK-2) Rel (units (unknown) date) Index TNP unknown) (unknown) (no (unknown) (unknown) CK-MB (CK-2) Rel (units (unknown) date) Index unknown) (unknown) (no (unknown) (unknown) CK-MB (CK-2) TNP (units (unknown) date) unknown) (unknown) (no (unknown) (unknown) CK-MB (CK-2) (units (u nknown) date) unknown) (unknown) (no (unknown) (unknown) Calcium (units (unkno wn) date) (8.4-10.2) mg/dL unknown) (unknown) (no (unknown) (unknown) Calcium 8.9 (units (un known) date) (8.4-10.2) mg/dL unknown) (unknown) (no (unknown) (unknown) Carbon Dioxide (units (unknown) date) (22-32) mmol/L unknown) (unknown) (no (unknown) (unknown) Carbon Dioxide 24 (units (unknown) date) (22-32) mmol/L unknown) (unknown) (no (unknown) (unknown) Cardiac: Regular (units (unknown) date) rate and rhythm no unknown) murmurs no bruits (unknown) (no (unknown) (unknown) Chest x-ray: (units (u nknown) date) unknown) (unknown) (no (unknown) (unknown) Chief Complaint: (units (unknown) date) Arrhythmia/Palpita unknown) tions (unknown) (no (unknown) (unknown) Chloride (98-107) (units (unknown) date) mmol/L unknown) (unknown) (no (unknown) (unknown) Chloride 104 (units (u nknown) date) (98-107) mmol/L unknown) (unknown) (no (unknown) (unknown) Clinical (units (unkno wn) date) Impression: unknown) (unknown) (no (unknown) (unknown) Complete Blood (units (unknown) date) Count AUTO DIFF unknown) Stat (unknown) (no (unknown) (unknown) Comprehensive (units ( unknown) date) Metabolic Panel unknown) Stat (unknown) (no (unknown) (unknown) Constipation (units (u nknown) date) unknown) (unknown) (no (unknown) (unknown) Course (units (unkno wn) date) unknown) (unknown) (no (unknown) (unknown) Creatinine (units (unk nown) date) (0.52-1.04) mg/dL unknown) (unknown) (no (unknown) (unknown) Creatinine 0.53 (units (unknown) date) (0.52-1.04) mg/dL unknown) (unknown) (no (unknown) (unknown) : 2000 (units (unknown) date) Acct:[id number] unknown) (unknown) (no (unknown) (unknown) Date of Service: (units (unknown) date) 02/01/22 unknown) (unknown) (no (unknown) (unknown) Departure (units (unkn own) date) unknown) (unknown) (no (unknown) (unknown) Depression (units (unk nown) date) unknown) (unknown) (no (unknown) (unknown) Dictated by: (units (u nknown) date) Ambrose Ochoa unknownApurva Torres on 02/02/2022 at 0:46 ? ? (unknown) (no (unknown) (unknown) Discharge Plan (units (unknown) date) unknown) (unknown) (no (unknown) (unknown) ECG Data (units (unkno wn) date) unknown) (unknown) (no (unknown) (unknown) ED Orders (units (unkn own) date) unknown) (unknown) (no (unknown) (unknown) EKG-12 Lead Stat (units (unknown) date) unknown) (unknown) (no (unknown) (unknown) ER Physician: (units ( unknown) date) Mimi Major unknown) (unknown) (no (unknown) (unknown) Emergency Report (units (unknown) date) unknown) (unknown) (no (unknown) (unknown) Eos # (Auto) (units (u nknown) date) (0-450) /uL unknown) (unknown) (no (unknown) (unknown) Eos # (Auto) 200 (units (unknown) date) (0-450) /uL unknown) (unknown) (no (unknown) (unknown) Eos % (Auto) (units (u nknown) date) (2-4) % unknown) (unknown) (no (unknown) (unknown) Eos % (Auto) 2.6 (units (unknown) date) (2-4) % unknown) (unknown) (no (unknown) (unknown) Epigastric (units (unk nown) date) abdominal pain unknown) (unknown) (no (unknown) (unknown) Estimated GFR > (units (unknown) date) 60 (>60) mL/min unknown) (unknown) (no (unknown) (unknown) Estimated GFR (units ( unknown) date) (>60) mL/min unknown) (unknown) (no (unknown) (unknown) Exam (units (unkno wn) date) unknown) (unknown) (no (unknown) (unknown) Extremities: No (units (unknown) date) trauma, well unknown) perfused (unknown) (no (unknown) (unknown) FINDINGS:? (units (unk nown) date) unknown) (unknown) (no (unknown) (unknown) Folliculitis (units (u nknown) date) unknown) (unknown) (no (unknown) (unknown) Free T4 (units (unkno wn) date) (0.78-2.19) ng/dL unknown) (unknown) (no (unknown) (unknown) Free T4 1.37 (units (u nknown) date) (0.78-2.19) ng/dL unknown) (unknown) (no (unknown) (unknown) Free T4, Direct (units (unknown) date) Thyroxine Stat unknown) (unknown) (no (unknown) (unknown) Full and (units (unkno wn) date) symmetrical air unknown) movement (unknown) (no (unknown) (unknown) GERD (units (unkno wn) date) (gastroesophageal unknown) reflux disease) (unknown) (no (unknown) (unknown) General (units (unkno wn) date) unknown) (unknown) (no (unknown) (unknown) General: Healthy (units (unknown) date) appearing, in no unknown) acute distress. Able to give a complete and (unknown) (no (unknown) (unknown) Globulin (units (unkno wn) date) (1.7-4.1) g/dL unknown) (unknown) (no (unknown) (unknown) Globulin 3.4 (units (u nknown) date) (1.7-4.1) g/dL unknown) (unknown) (no (unknown) (unknown) Glucose (70-100) (units (unknown) date) mg/dL unknown) (unknown) (no (unknown) (unknown) Glucose 84 (units (unk nown) date) (70-100) mg/dL unknown) (unknown) (no (unknown) (unknown) HEENT: Moist (units (u nknown) date) mucous membranes, unknown) normal sclera with reactive pupils, (unknown) (no (unknown) (unknown) HPI - (units (unkno wn) date) Arrhythmia/Palpita unknown) tions (unknown) (no (unknown) (unknown) HPI narrative: (units (unknown) date) unknown) (unknown) (no (unknown) (unknown) Hct (36-46) % (units ( unknown) date) unknown) (unknown) (no (unknown) (unknown) Hct 40.2 (36-46) (units (unknown) date) % unknown) (unknown) (no (unknown) (unknown) Hgb (12.0-16.0) (units (unknown) date) g/dL unknown) (unknown) (no (unknown) (unknown) Hgb 13.6 (units (unkno wn) date) (12.0-16.0) g/dL unknown) (unknown) (no (unknown) (unknown) History of (units (unk nown) date) Present Illness unknown) (unknown) (no (unknown) (unknown) IMPRESSION:? (units (u nknown) date) unknown) (unknown) (no (unknown) (unknown) Imaging Data (units (u nknown) date) unknown) (unknown) (no (unknown) (unknown) In the meantime, (units (unknown) date) doing what you can unknown) to keep your sleep patterns regular and (unknown) (no (unknown) (unknown) Initial Vital (units ( unknown) date) Signs unknown) (unknown) (no (unknown) (unknown) Initial Vital (units ( unknown) date) Signs: unknown) (unknown) (no (unknown) (unknown) Injury of right (units (unknown) date) hand unknown) (unknown) (no (unknown) (unknown) Instructions: DI (units (unknown) date) for unknown) Hyperthyroidism, DI for Arrhythmias (unknown) (no (unknown) (unknown) Interpretation: (units (unknown) date) unknown) (unknown) (no (unknown) (unknown) [facility] (units (unknown) date) [address] unknown) [place] [address] (unknown) (no (unknown) (unknown) Lab Data (units (unkno wn) date) unknown) (unknown) (no (unknown) (unknown) Lab Results (units (un known) date) unknown) (unknown) (no (unknown) (unknown) Labs: (units (unkno wn) date) unknown) (unknown) (no (unknown) (unknown) Lungs and (units (unkn own) date) pleura:? Lungs are unknown) clear.? No pleural effusions or pneumothorax.? (unknown) (no (unknown) (unknown) Lymph # (Auto) (units (unknown) date) (7559-5730) /uL unknown) (unknown) (no (unknown) (unknown) Lymph # (Auto) (units (unknown) date) 2800 (5027-1345) unknown) /uL (unknown) (no (unknown) (unknown) Lymph % (Auto) (units (unknown) date) (25-40) % unknown) (unknown) (no (unknown) (unknown) Lymph % (Auto) (units (unknown) date) 35.8 (25-40) % unknown) (unknown) (no (unknown) (unknown) [id number] (units (unk nown) date) unknown) (unknown) (no (unknown) (unknown) MCH (26-34) PG (units (unknown) date) unknown) (unknown) (no (unknown) (unknown) MCH 28.1 (26-34) (units (unknown) date) PG unknown) (unknown) (no (unknown) (unknown) MCHC (30-36) % (units (unknown) date) unknown) (unknown) (no (unknown) (unknown) MCHC 33.7 (30-36) (units (unknown) date) % unknown) (unknown) (no (unknown) (unknown) MCV (80-100) fL (units (unknown) date) unknown) (unknown) (no (unknown) (unknown) MCV 83.5 (80-100) (units (unknown) date) fL unknown) (unknown) (no (unknown) (unknown) MDM - (units (unkno wn) date) Arrhythmia/Palpita unknown) tions (unknown) (no (unknown) (unknown) MDM Narrative (units ( unknown) date) unknown) (unknown) (no (unknown) (unknown) Mediastinum:? (units ( unknown) date) Mediastinal unknown) contours appear normal.? Heart size is normal.? (unknown) (no (unknown) (unknown) Medical History (units (unknown) date) (Reviewed 02/01/22 unknown) @ 23:15 by Mimi Major MD) (unknown) (no (unknown) (unknown) Medical decision (units (unknown) date) making narrative: unknown) (unknown) (no (unknown) (unknown) Medication (units (unk nown) date) Instructions unknown) Recorded (unknown) (no (unknown) (unknown) Mode of arrival: (units (unknown) date) Ambulatory unknown) (unknown) (no (unknown) (unknown) [place] # (Auto) (units ( unknown) date) (0-900) /uL unknown) (unknown) (no (unknown) (unknown) [place] # (Auto) 500 (units (unknown) date) (0-900) /uL unknown) (unknown) (no (unknown) (unknown) [place] % (Auto) (units ( unknown) date) (3-14) % unknown) (unknown) (no (unknown) (unknown) [place] % (Auto) 6.4 (units (unknown) date) (3-14) % unknown) (unknown) (no (unknown) (unknown) Narrative: (units (unk nown) date) unknown) (unknown) (no (unknown) (unknown) Nausea (units (unkno wn) date) unknown) (unknown) (no (unknown) (unknown) Neck: supple (units (u nknown) date) unknown) (unknown) (no (unknown) (unknown) Neurologic: (units (un known) date) Grossly unknown) neurologically intact with no obvious asymmetries or (unknown) (no (unknown) (unknown) Neut # (Auto) (units ( unknown) date) (0033-2474) /uL unknown) (unknown) (no (unknown) (unknown) Neut # (Auto) (units ( unknown) date) 4200 (7043-3598) unknown) /uL (unknown) (no (unknown) (unknown) Neut % (Auto) (units ( unknown) date) (50-75) % unknown) (unknown) (no (unknown) (unknown) Neut % (Auto) (units ( unknown) date) 54.5 (50-75) % unknown) (unknown) (no (unknown) (unknown) No Action (units (unkn own) date) unknown) (unknown) (no (unknown) (unknown) No acute ischemic (units (unknown) date) changes unknown) (unknown) (no (unknown) (unknown) Ordered: (units (unkno wn) date) unknown) (unknown) (no (unknown) (unknown) Orders (units (unkno wn) date) unknown) (unknown) (no (unknown) (unknown) Oxygen Delivery (units (unknown) date) Method 02/01/22 unknown) 19:44 (unknown) (no (unknown) (unknown) Oxygen Delivery (units (unknown) date) Method Room Air unknown) (unknown) (no (unknown) (unknown) Oxygen Delivery (units (unknown) date) Method unknown) (unknown) (no (unknown) (unknown) PTSD (units (unkno wn) date) (post-traumatic unknown) stress disorder) (unknown) (no (unknown) (unknown) Patient (units (unkno wn) date) Disposition: Home unknown) (unknown) (no (unknown) (unknown) Patient History (units (unknown) date) unknown) (unknown) (no (unknown) (unknown) Patient: (units (unkno wn) date) Joan Christy unknown) MR#: (unknown) (no (unknown) (unknown) Plt Count (units (unkn own) date) (150-400) X103/uL unknown) (unknown) (no (unknown) (unknown) Plt Count 329 (units ( unknown) date) (150-400) X103/uL unknown) (unknown) (no (unknown) (unknown) Potassium (units (unkn own) date) (3.4-5.1) mmol/L unknown) (unknown) (no (unknown) (unknown) Potassium 3.6 (units ( unknown) date) (3.4-5.1) mmol/L unknown) (unknown) (no (unknown) (unknown) Prescriptions: (units (unknown) date) unknown) (unknown) (no (unknown) (unknown) Previous Rx's (units ( unknown) date) unknown) (unknown) (no (unknown) (unknown) Psych: (units (unkno wn) date) Cooperative, unknown) appropriate insight and affect (unknown) (no (unknown) (unknown) Pulse Oximetry 98 (units (unknown) date) 100 unknown) (unknown) (no (unknown) (unknown) Pulse Oximetry 98 (units (unknown) date) 98 98 unknown) (unknown) (no (unknown) (unknown) Pulse Oximetry 98 (units (unknown) date) unknown) (unknown) (no (unknown) (unknown) Pulse Oximetry 99 (units (unknown) date) 02/01/22 19:44 unknown) (unknown) (no (unknown) (unknown) Pulse Oximetry 99 (units (unknown) date) 99 unknown) (unknown) (no (unknown) (unknown) Pulse Rate 73 75 (units (unknown) date) unknown) (unknown) (no (unknown) (unknown) Pulse Rate 75 (units ( unknown) date) 02/01/22 19:44 unknown) (unknown) (no (unknown) (unknown) Pulse Rate 75 77 (units (unknown) date) unknown) (unknown) (no (unknown) (unknown) Pulse Rate 78 87 (units (unknown) date) 83 unknown) (unknown) (no (unknown) (unknown) Pulse Rate 88 85 (units (unknown) date) unknown) (unknown) (no (unknown) (unknown) RBC (4.0-5.2) (units ( unknown) date) X106/uL unknown) (unknown) (no (unknown) (unknown) RBC 4.82 (units (unkno wn) date) (4.0-5.2) X106/uL unknown) (unknown) (no (unknown) (unknown) RDW (11.6-14.8) % (units (unknown) date) unknown) (unknown) (no (unknown) (unknown) RDW 12.9 (units (unkno wn) date) (11.6-14.8) % unknown) (unknown) (no (unknown) (unknown) Radiologist's (units ( unknown) date) Impresson: unknown) (unknown) (no (unknown) (unknown) Referrals: (units (unk nown) date) unknown) (unknown) (no (unknown) (unknown) Related Data (units (u nknown) date) unknown) (unknown) (no (unknown) (unknown) Remainder of (units (u nknown) date) complete review of unknown) systems is otherwise unremarkable except for (unknown) (no (unknown) (unknown) Respiratory Rate (units (unknown) date) 14 02/01/22 19:44 unknown) (unknown) (no (unknown) (unknown) Respiratory Rate (units (unknown) date) 14 unknown) (unknown) (no (unknown) (unknown) Respiratory Rate (units (unknown) date) 19 18 unknown) (unknown) (no (unknown) (unknown) Respiratory Rate (units (unknown) date) 21 16 unknown) (unknown) (no (unknown) (unknown) Respiratory Rate (units (unknown) date) 36 H 26 H 30 H unknown) (unknown) (no (unknown) (unknown) Respiratory: (units (u nknown) date) Lungs are clear to unknown) auscultation, no wheezing no rales no rhonchi. (unknown) (no (unknown) (unknown) Result diagrams: (units (unknown) date) unknown) (unknown) (no (unknown) (unknown) Review of Systems (units (unknown) date) unknown) (unknown) (no (unknown) (unknown) Wilbert Brian, (units ( unknown) date) CLEARANCE COORDINATOR [Primary Care unknown) Provider] (unknown) (no (unknown) (unknown) Rx Instructions: (units (unknown) date) unknown) (unknown) (no (unknown) (unknown) SVT. She does (units ( unknown) date) note that she is unknown) been having increasing sleep disturbances due to (unknown) (no (unknown) (unknown) See Rx (units (unkno wn) date) Instructions unknown) .Route .MEDSUPPLY Qty: 1 0RF (unknown) (no (unknown) (unknown) She does not (units (u nknown) date) consume unknown) significant stimulants including caffeine, energy drinks, (unknown) (no (unknown) (unknown) Signed By: (units (unk nown) date) unknown) (unknown) (no (unknown) (unknown) Sinus arrhythmia (units (unknown) date) unknown) (unknown) (no (unknown) (unknown) Sinus rhythm at a (units (unknown) date) rate of 70 with unknown) occasional sinus (unknown) (no (unknown) (unknown) Skin: Warm and (units (unknown) date) dry, no rashes unknown) (unknown) (no (unknown) (unknown) Smoking Status: (units (unknown) date) Former smoker unknown) (unknown) (no (unknown) (unknown) Social History (units (unknown) date) (Reviewed 02/01/22 unknown) @ 23:15 by Mimi Major MD) (unknown) (no (unknown) (unknown) Sodium (137-145) (units (unknown) date) mmol/L unknown) (unknown) (no (unknown) (unknown) Sodium 139 (units (unk nown) date) (137-145) mmol/L unknown) (unknown) (no (unknown) (unknown) Source: patient (units (unknown) date) unknown) (unknown) (no (unknown) (unknown) Splint #1 ea (units (u nknown) date) 08/01/21 unknown) (unknown) (no (unknown) (unknown) Stated Complaint: (units (unknown) date) Heart palpitations unknown) (unknown) (no (unknown) (unknown) Substance Use (units ( unknown) date) Type: does not use unknown) (unknown) (no (unknown) (unknown) Surgical changes (units (unknown) date) and devices:? unknown) None.? (unknown) (no (unknown) (unknown) TSH (0.47-4.68) (units (unknown) date) uIU/mL unknown) (unknown) (no (unknown) (unknown) TSH 0.210 L (units (un known) date) (0.47-4.68) uIU/mL unknown) (unknown) (no (unknown) (unknown) Temperature 96.6 (units (unknown) date) F L 02/01/22 19:44 unknown) (unknown) (no (unknown) (unknown) Temperature 96.6 (units (unknown) date) F L unknown) (unknown) (no (unknown) (unknown) Temperature (units (un known) date) unknown) (unknown) (no (unknown) (unknown) Thank you for (units ( unknown) date) coming in today unknown) (unknown) (no (unknown) (unknown) This is not (units (un known) date) life-threatening unknown) and it is not a precursor of a life-threatening (unknown) (no (unknown) (unknown) Thyroid (units (unkno wn) date) Stimulating unknown) Hormone Stat (unknown) (no (unknown) (unknown) Time Seen by (units (u nknown) date) Provider: 02/01/22 unknown) 22:10 (unknown) (no (unknown) (unknown) Tobacco: How many (units (unknown) date) years used: 5 unknown) (unknown) (no (unknown) (unknown) Total Bilirubin (units (unknown) date) (0.2-1.3) mg/dL unknown) (unknown) (no (unknown) (unknown) Total Bilirubin (units (unknown) date) 2.6 H (0.2-1.3) unknown) mg/dL (unknown) (no (unknown) (unknown) Total Creatine (units (unknown) date) Kinase (30-135) unknown) U/L (unknown) (no (unknown) (unknown) Total Creatine (units (unknown) date) Kinase 39 (30-135) unknown) U/L (unknown) (no (unknown) (unknown) Total Protein (units ( unknown) date) (6.3-8.2) g/dL unknown) (unknown) (no (unknown) (unknown) Total Protein 7.8 (units (unknown) date) (6.3-8.2) g/dL unknown) (unknown) (no (unknown) (unknown) Troponin + CK (units ( unknown) date) Cardiac Panel Stat unknown) (unknown) (no (unknown) (unknown) Troponin I < (units (u nknown) date) 0.012 (0.01-0.034) unknown) ng/mL (unknown) (no (unknown) (unknown) Troponin I (units (unk nown) date) (0.01-0.034) ng/mL unknown) (unknown) (no (unknown) (unknown) Visit Report (units (u nknown) date) Forms: Patient unknown) Portal/API (unknown) (no (unknown) (unknown) Vital Signs - 8 (units (unknown) date) hr unknown) (unknown) (no (unknown) (unknown) Vital Signs (units (un known) date) unknown) (unknown) (no (unknown) (unknown) Vital signs: (units (u nknown) date) unknown) (unknown) (no (unknown) (unknown) WBC (4.5-11.0) (units (unknown) date) X103/uL unknown) (unknown) (no (unknown) (unknown) WBC 7.8 (units (unkno wn) date) (4.5-11.0) X103/uL unknown) (unknown) (no (unknown) (unknown) XR chest 1V Stat (units (unknown) date) unknown) (unknown) (no (unknown) (unknown) You are having (units (unknown) date) occasional early unknown) heartbeats. This is called a sinus arrhythmia. (unknown) (no (unknown) (unknown) Your exam, EKG, (units (unknown) date) lab work and unknown) clinical workup is very reassuring. (unknown) (no (unknown) (unknown) Your lab work (units ( unknown) date) suggested that you unknown) may have mild hyper thyroidism. I added a 2nd (unknown) (no (unknown) (unknown) [Embedded Image (units (unknown) date) Not Available] unknown) (unknown) (no (unknown) (unknown) abnormalities (units ( unknown) date) unknown) (unknown) (no (unknown) (unknown) ago. (units (unkno wn) date) unknown) (unknown) (no (unknown) (unknown) alcohol intake (units (unknown) date) frequency: unknown) holidays/special occasions only (unknown) (no (unknown) (unknown) alcohol intake: (units (unknown) date) current unknown) (unknown) (no (unknown) (unknown) and she is safe (units (unknown) date) for discharge home unknown) (unknown) (no (unknown) (unknown) appear (units (unkno wn) date) unknown) (unknown) (no (unknown) (unknown) arrhythmia. It is (units (unknown) date) somewhat unknown) disconcerting. (unknown) (no (unknown) (unknown) caffeine and (units (u nknown) date) energy drinks will unknown) be helpful in decreasing heart palpitations. I (unknown) (no (unknown) (unknown) cocaine or (units (unk nown) date) methamphetamine. unknown) Denies recreational opiates and IV drug use. No (unknown) (no (unknown) (unknown) coherent history. (units (unknown) date) Well-nourished unknown) well-developed (unknown) (no (unknown) (unknown) enough concerned (units (unknown) date) that she is coming unknown) in for further evaluation. She reports no (unknown) (no (unknown) (unknown) further (units (unkno wn) date) evaluation done. unknown) She notes that she is continued to have palpitations (unknown) (no (unknown) (unknown) is normal, you do (units (unknown) date) not need any unknown) further follow-up. If this is abnormal you will (unknown) (no (unknown) (unknown) it is she will (units (unknown) date) need to follow up unknown) with the primary care physician at this point (unknown) (no (unknown) (unknown) lab tests and I (units (unknown) date) will text you unknown) later this morning with results of that. If this (unknown) (no (unknown) (unknown) maintain (units (unkno wn) date) circadian rhythms, unknown) being well hydrated and avoiding stimulants like (unknown) (no (unknown) (unknown) metronidazole (units ( unknown) date) Allergy Mild 'lots unknown) of Verified 10/07/21 22:21 (unknown) (no (unknown) (unknown) need to find a (units (unknown) date) primary care unknown) physician to talk about hyperthyroidism. (unknown) (no (unknown) (unknown) not particularly (units (unknown) date) painful. She had unknown) an EKG for evaluation at that time but has no (unknown) (no (unknown) (unknown) not suggest any (units (unknown) date) evidence of unknown) cardiomyopathy, pericarditis or myocarditis. TSH is (unknown) (no (unknown) (unknown) omeprazole 40 mg (units (unknown) date) capsule,delayed 40 unknown) mg PO BID #60 caps 04/04/21 (unknown) (no (unknown) (unknown) omeprazole 40 mg (units (unknown) date) capsule,delayed unknown) release(DR/EC) (unknown) (no (unknown) (unknown) other diet or (units ( unknown) date) metabolic unknown) supplements. No nausea, vomiting, diarrhea, abdominal (unknown) (no (unknown) (unknown) over the years (units (unknown) date) but the last month unknown) it is gotten particularly troublesome and (unknown) (no (unknown) (unknown) pain, headache. (units (unknown) date) She notes that she unknown) is successfully quit smoking about a month (unknown) (no (unknown) (unknown) pounding enough (units (unknown) date) that she felt that unknown) she was going to pass out. This caused (unknown) (no (unknown) (unknown) quit status: (units (u nknown) date) considering unknown) quitting (unknown) (no (unknown) (unknown) recent viral (units (u nknown) date) symptoms, dyspnea, unknown) orthopnea. She does note that due to her work (unknown) (no (unknown) (unknown) release (units (unkno wn) date) unknown) (unknown) (no (unknown) (unknown) respiratory (units (un known) date) infection a couple unknown) of weeks ago. Lab work, EKG and chest x-ray did (unknown) (no (unknown) (unknown) rhythms and (units (un known) date) importance of unknown) scheduled and regular sleep. Questions are answered (unknown) (no (unknown) (unknown) schedule her (units (u nknown) date) sleep schedule has unknown) been increasingly chaotic over the last month. (unknown) (no (unknown) (unknown) second hand (units (un known) date) exposure: Yes unknown) (father's home and when smoking in car w/ windows up. (unknown) (no (unknown) (unknown) she is not losing (units (unknown) date) weight and does unknown) not have fine motor tremor to suggest (unknown) (no (unknown) (unknown) significant (units (un known) date) hyperthyroidism. unknown) Reassurance is given, talked about circadian (unknown) (no (unknown) (unknown) slightly (units (unkno wn) date) suppressed T4 will unknown) be added. Will contact her if the T4 is off and if (unknown) (no (unknown) (unknown) substance use (units ( unknown) date) type: does not use unknown) (unknown) (no (unknown) (unknown) that included in (units (unknown) date) the HPI. unknown) (unknown) (no (unknown) (unknown) tobacco type: (units ( unknown) date) cigarettes unknown) (unknown) (no (unknown) (unknown) today she had an (units (unknown) date) event with a unknown) couple of irregular beats that were hard and (unknown) (no (unknown) (unknown) unremarkable. She (units (unknown) date) is having mild unknown) sinus arrhythmia but no pathologic rhythms or (unknown) (no (unknown) (unknown) unremarkable.? (units (unknown) date) unknown) (unknown) (no (unknown) (unknown) vomiting' (units (unkn own) date) unknown) (unknown) (no (unknown) (unknown) wish you the (units (u nknown) date) best. unknown) (unknown) (no (unknown) (unknown) with palpitations (units (unknown) date) that seem to be unknown) getting worse. She 1st noticed at the age of (unknown) (no (unknown) (unknown) work but no other (units (unknown) date) significant unknown) abnormalities. She does note she had upper Result panel 82 (unknown) (no (unknown) (unknown) (no value) (units (unk nown) date) unknown) (unknown) (no (unknown) (unknown) 'lots of (units (unkno wn) date) vomiting' unknown) (unknown) (no (unknown) (unknown) (1) (units (unkno wn) date) Palpitations: unknown) (unknown) (no (unknown) (unknown) ) (units (unkno wn) date) unknown) (unknown) (no (unknown) (unknown) 02/05/22 (units (unkno wn) date) unknown) (unknown) (no (unknown) (unknown) 16:42 (units (unkno wn) date) unknown) (unknown) (no (unknown) (unknown) 21 yo female (units (u nknown) date) presents today unknown) c/o palpitations that occur for a couple of seconds (unknown) (no (unknown) (unknown) Abdominal pain (units (unknown) date) unknown) (unknown) (no (unknown) (unknown) Abdominal pain, (units (unknown) date) left upper unknown) quadrant (unknown) (no (unknown) (unknown) Age/Sex: 21 / F (units (unknown) date) Date of Service: unknown) (unknown) (no (unknown) (unknown) Allergies (units (unkn own) date) unknown) (unknown) (no (unknown) (unknown) [place], [place] (units ( unknown) date) [id number] unknown) (unknown) (no (unknown) (unknown) Anxiety (units (unkno wn) date) unknown) (unknown) (no (unknown) (unknown) Assessment + (units (u nknown) date) Plan unknown) (unknown) (no (unknown) (unknown) Attending Dr: (units ( unknown) date) Wilbert TENA unknown) (unknown) (no (unknown) (unknown) BMI 31.4 (units (unkno wn) date) unknown) (unknown) (no (unknown) (unknown) BP 111/69 (units (unkn own) date) unknown) (unknown) (no (unknown) (unknown) Blood Pressure (units (unknown) date) Location Lt unknown) radial (unknown) (no (unknown) (unknown) Constipation (units (u nknown) date) unknown) (unknown) (no (unknown) (unknown) : 2000 (units (unknown) date) Acct:[id number] unknown) (unknown) (no (unknown) (unknown) Depression (units (unk nown) date) unknown) (unknown) (no (unknown) (unknown) Dept at (units (unkno wn) date) . unknown) (unknown) (no (unknown) (unknown) Documented By: (units (unknown) date) Wilbert Brian unknown) 02/05/22 1637 (unknown) (no (unknown) (unknown) Draft (units (unkno wn) date) unknown) (unknown) (no (unknown) (unknown) Epigastric (units (unk nown) date) abdominal pain unknown) (unknown) (no (unknown) (unknown) Family Practice (units (unknown) date) Office Visit unknown) (unknown) (no (unknown) (unknown) [facility] unknown) (unknown) (no (unknown) (unknown) Folliculitis (units (u nknown) date) unknown) (unknown) (no (unknown) (unknown) GERD (units (unkno wn) date) (gastroesophageal unknown) reflux disease) (unknown) (no (unknown) (unknown) Height 5 ft 1 in (units (unknown) date) unknown) (unknown) (no (unknown) (unknown) Injury of right (units (unknown) date) hand unknown) (unknown) (no (unknown) (unknown) Intake Note: (units (u nknown) date) unknown) (unknown) (no (unknown) (unknown) Intake performed (units (unknown) date) by: Faith Stern unknown) L (unknown) (no (unknown) (unknown) Intake (units (unkno wn) date) unknown) (unknown) (no (unknown) (unknown) Intake- Clincial (units (unknown) date) Staff unknown) (unknown) (no (unknown) (unknown) Loc: [facility] (units (unkno wn) date) unknown) (unknown) (no (unknown) (unknown) [id number] (units (unk nown) date) unknown) (unknown) (no (unknown) (unknown) Medical History (units (unknown) date) (Reviewed unknown) 02/01/22 @ 23:15 by Mimi Major MD) (unknown) (no (unknown) (unknown) Medications (units (un known) date) unknown) (unknown) (no (unknown) (unknown) Nausea (units (unkno wn) date) unknown) (unknown) (no (unknown) (unknown) Oxygen Delivery (units (unknown) date) Method room air unknown) (unknown) (no (unknown) (unknown) PFSH (units (unkno wn) date) unknown) (unknown) (no (unknown) (unknown) PTSD (units (unkno wn) date) (post-traumatic unknown) stress disorder) (unknown) (no (unknown) (unknown) Patient: (units (unkno wn) date) Joan Christy unknown) MR#: (unknown) (no (unknown) (unknown) Position Sitting (units (unknown) date) unknown) (unknown) (no (unknown) (unknown) Pulse 77 (units (unkno wn) date) unknown) (unknown) (no (unknown) (unknown) Pulse Oximetry (units (unknown) date) (%) 98 unknown) (unknown) (no (unknown) (unknown) Pulse Source (units (u nknown) date) Monitor unknown) (unknown) (no (unknown) (unknown) Reason For Visit (units (unknown) date) unknown) (unknown) (no (unknown) (unknown) Respiration 16 (units (unknown) date) unknown) (unknown) (no (unknown) (unknown) Signed By: (units (unk nown) date) unknown) (unknown) (no (unknown) (unknown) Smoking Status: (units (unknown) date) Former smoker unknown) (unknown) (no (unknown) (unknown) Splint #1 ea (units (u nknown) date) 08/01/21 [Rx unknown) Confirmed 02/05/22] (unknown) (no (unknown) (unknown) This note may (units ( unknown) date) have been all or unknown) partially generated using voice recognition (unknown) (no (unknown) (unknown) Tobacco + (units (unkn own) date) Substance Use unknown) (unknown) (no (unknown) (unknown) Tobacco Status (units (unknown) date) unknown) (unknown) (no (unknown) (unknown) Tobacco: How (units (u nknown) date) many years used: unknown) 5 (unknown) (no (unknown) (unknown) Visit Reasons: (units (unknown) date) Palpitations unknown) (unknown) (no (unknown) (unknown) Vitals (units (unkno wn) date) unknown) (unknown) (no (unknown) (unknown) Weight 166 lb 6 (units (unknown) date) oz unknown) (unknown) (no (unknown) (unknown) alcohol intake: (units (unknown) date) current unknown) (unknown) (no (unknown) (unknown) every few days. (units (unknown) date) Patient also unknown) notes that she notes that at night when she is (unknown) (no (unknown) (unknown) faster and (units (unk nown) date) harder than unknown) usual. This lasts for about an hour. (unknown) (no (unknown) (unknown) have occurred. (units (unknown) date) If there are any unknown) questions, please contact the Medical Records (unknown) (no (unknown) (unknown) may occur. (units (unk nown) date) Occasional unknown) wrong-word or 'sound-alike' substitutions may have (unknown) (no (unknown) (unknown) metronidazole (units ( unknown) date) Allergy (Mild, unknown) Verified 02/05/22 16:41) (unknown) (no (unknown) (unknown) occurred due to (units (unknown) date) the inherent unknown) limitations of voice recognition software. Please (unknown) (no (unknown) (unknown) quit status: (units (u nknown) date) considering unknown) quitting (unknown) (no (unknown) (unknown) read the note (units ( unknown) date) carefully and unknown) recognize, using context, where these substitutions (unknown) (no (unknown) (unknown) relaxing (or (units (u nknown) date) even occasionally unknown) at work) she feels as though her heart beats (unknown) (no (unknown) (unknown) second hand (units (un known) date) exposure: Yes unknown) (father's home and when smoking in car w/ windows up. (unknown) (no (unknown) (unknown) software. (units (unkn own) date) Although every unknown) effort is made to edit content, email designer errors (unknown) (no (unknown) (unknown) substance use (units ( unknown) date) type: does not unknown) use Result panel 83 (unknown) (no (unknown) (unknown) (no value) (units (unk nown) date) unknown) (unknown) (no (unknown) (unknown) 'lots of (units (unkno wn) date) vomiting' unknown) (unknown) (no (unknown) (unknown) (1) (units (unkno wn) date) Palpitations: unknown) (unknown) (no (unknown) (unknown) ) (units (unkno wn) date) unknown) (unknown) (no (unknown) (unknown) 02/05/22 (units (unkno wn) date) unknown) (unknown) (no (unknown) (unknown) 16:42 (units (unkno wn) date) unknown) (unknown) (no (unknown) (unknown) 21 yo female (units (u nknown) date) presents today unknown) c/o palpitations that occur for a couple of seconds (unknown) (no (unknown) (unknown) Abdominal pain (units (unknown) date) unknown) (unknown) (no (unknown) (unknown) Abdominal pain, (units (unknown) date) left upper unknown) quadrant (unknown) (no (unknown) (unknown) Age/Sex: 21 / F (units (unknown) date) Date of Service: unknown) (unknown) (no (unknown) (unknown) Allergies (units (unkn own) date) unknown) (unknown) (no (unknown) (unknown) [facility] (units ( unknown) date) [id number] unknown) (unknown) (no (unknown) (unknown) Anxiety (units (unkno wn) date) unknown) (unknown) (no (unknown) (unknown) Assessment + (units (u nknown) date) Plan unknown) (unknown) (no (unknown) (unknown) Attending Dr: (units ( unknown) date) Wilbert TENA unknown) (unknown) (no (unknown) (unknown) BMI 31.4 (units (unkno wn) date) unknown) (unknown) (no (unknown) (unknown) BP 111/69 (units (unkn own) date) unknown) (unknown) (no (unknown) (unknown) Blood Pressure (units (unknown) date) Location Lt unknown) radial (unknown) (no (unknown) (unknown) Constipation (units (u nknown) date) unknown) (unknown) (no (unknown) (unknown) : 2000 (units (unknown) date) Acct:[id number] unknown) (unknown) (no (unknown) (unknown) Depression (units (unk nown) date) unknown) (unknown) (no (unknown) (unknown) Dept at (units (unkno wn) date) . unknown) (unknown) (no (unknown) (unknown) Details: (units (unkno wn) date) unknown) (unknown) (no (unknown) (unknown) Documented By: (units (unknown) date) Wilbert Brian unknown) 02/05/22 1637 (unknown) (no (unknown) (unknown) Draft (units (unkno wn) date) unknown) (unknown) (no (unknown) (unknown) Epigastric (units (unk nown) date) abdominal pain unknown) (unknown) (no (unknown) (unknown) Family Practice (units (unknown) date) Office Visit unknown) (unknown) (no (unknown) (unknown) [facility] unknown) (unknown) (no (unknown) (unknown) Folliculitis (units (u nknown) date) unknown) (unknown) (no (unknown) (unknown) GERD (units (unkno wn) date) (gastroesophageal unknown) reflux disease) (unknown) (no (unknown) (unknown) HPI (units (unkno wn) date) unknown) (unknown) (no (unknown) (unknown) Height 154.94 cm (units (unknown) date) unknown) (unknown) (no (unknown) (unknown) Injury of right (units (unknown) date) hand unknown) (unknown) (no (unknown) (unknown) Intake Note: (units (u nknown) date) unknown) (unknown) (no (unknown) (unknown) Intake performed (units (unknown) date) by: Faith Stern unknown) L (unknown) (no (unknown) (unknown) Intake (units (unkno wn) date) unknown) (unknown) (no (unknown) (unknown) Intake- Clincial (units (unknown) date) Staff unknown) (unknown) (no (unknown) (unknown) Loc: [facility] (units (unkno wn) date) unknown) (unknown) (no (unknown) (unknown) [id number] (units (unk nown) date) unknown) (unknown) (no (unknown) (unknown) Medical History (units (unknown) date) (Reviewed unknown) 02/01/22 @ 23:15 by Mimi Major MD) (unknown) (no (unknown) (unknown) Medications (units (un known) date) unknown) (unknown) (no (unknown) (unknown) Nausea (units (unkno wn) date) unknown) (unknown) (no (unknown) (unknown) Oxygen Delivery (units (unknown) date) Method room air unknown) (unknown) (no (unknown) (unknown) PFSH (units (unkno wn) date) unknown) (unknown) (no (unknown) (unknown) PTSD (units (unkno wn) date) (post-traumatic unknown) stress disorder) (unknown) (no (unknown) (unknown) Patient: (units (unkno wn) date) Joan Christy unknown) MR#: (unknown) (no (unknown) (unknown) Position Sitting (units (unknown) date) unknown) (unknown) (no (unknown) (unknown) Pulse 77 (units (unkno wn) date) unknown) (unknown) (no (unknown) (unknown) Pulse Oximetry (units (unknown) date) (%) 98 unknown) (unknown) (no (unknown) (unknown) Pulse Source (units (u nknown) date) Monitor unknown) (unknown) (no (unknown) (unknown) Reason For Visit (units (unknown) date) unknown) (unknown) (no (unknown) (unknown) Respiration 16 (units (unknown) date) unknown) (unknown) (no (unknown) (unknown) Signed By: (units (unk nown) date) unknown) (unknown) (no (unknown) (unknown) Smoking Status: (units (unknown) date) Former smoker unknown) (unknown) (no (unknown) (unknown) Splint #1 ea (units (u nknown) date) 08/01/21 [Rx unknown) Confirmed 02/05/22] (unknown) (no (unknown) (unknown) This note may (units ( unknown) date) have been all or unknown) partially generated using voice recognition (unknown) (no (unknown) (unknown) Tobacco + (units (unkn own) date) Substance Use unknown) (unknown) (no (unknown) (unknown) Tobacco Status (units (unknown) date) unknown) (unknown) (no (unknown) (unknown) Tobacco: How (units (u nknown) date) many years used: unknown) 5 (unknown) (no (unknown) (unknown) Visit Reasons: (units (unknown) date) Palpitations unknown) (unknown) (no (unknown) (unknown) Vitals (units (unkno wn) date) unknown) (unknown) (no (unknown) (unknown) Weight 75.466 kg (units (unknown) date) unknown) (unknown) (no (unknown) (unknown) alcohol intake: (units (unknown) date) current unknown) (unknown) (no (unknown) (unknown) and harder than (units (unknown) date) usual. This lasts unknown) for about an hour. (unknown) (no (unknown) (unknown) every few days. (units (unknown) date) Patient also unknown) notes that she notes that at night when she is re (unknown) (no (unknown) (unknown) every few days. (units (unknown) date) Patient also unknown) notes that she notes that at night when she is (unknown) (no (unknown) (unknown) faster and (units (unk nown) date) harder than unknown) usual. This lasts for about an hour. (unknown) (no (unknown) (unknown) have occurred. (units (unknown) date) If there are any unknown) questions, please contact the Medical Records (unknown) (no (unknown) (unknown) laxing (or even (units (unknown) date) occasionally at unknown) work) she feels as though her heart beats faster (unknown) (no (unknown) (unknown) may occur. (units (unk nown) date) Occasional unknown) wrong-word or 'sound-alike' substitutions may have (unknown) (no (unknown) (unknown) metronidazole (units ( unknown) date) Allergy (Mild, unknown) Verified 02/05/22 16:41) (unknown) (no (unknown) (unknown) occurred due to (units (unknown) date) the inherent unknown) limitations of voice recognition software. Please (unknown) (no (unknown) (unknown) quit status: (units (u nknown) date) considering unknown) quitting (unknown) (no (unknown) (unknown) read the note (units ( unknown) date) carefully and unknown) recognize, using context, where these substitutions (unknown) (no (unknown) (unknown) relaxing (or (units (u nknown) date) even occasionally unknown) at work) she feels as though her heart beats (unknown) (no (unknown) (unknown) second hand (units (un known) date) exposure: Yes unknown) (father's home and when smoking in car w/ windows up. (unknown) (no (unknown) (unknown) software. (units (unkn own) date) Although every unknown) effort is made to edit content, email designer errors (unknown) (no (unknown) (unknown) substance use (units ( unknown) date) type: does not unknown) use Result panel 84 (unknown) (no (unknown) (unknown) (no value) (units (unk nown) date) unknown) (unknown) (no (unknown) (unknown) 'lots of (units (unkno wn) date) vomiting' unknown) (unknown) (no (unknown) (unknown) (1) (units (unkno wn) date) Palpitations: unknown) (unknown) (no (unknown) (unknown) ) (units (unkno wn) date) unknown) (unknown) (no (unknown) (unknown) 02/05/22 (units (unkno wn) date) unknown) (unknown) (no (unknown) (unknown) 16:42 (units (unkno wn) date) unknown) (unknown) (no (unknown) (unknown) 21 yo female (units (u nknown) date) presents today unknown) c/o palpitations that occur for a couple of seconds (unknown) (no (unknown) (unknown) Abdominal pain (units (unknown) date) unknown) (unknown) (no (unknown) (unknown) Abdominal pain, (units (unknown) date) left upper unknown) quadrant (unknown) (no (unknown) (unknown) Age/Sex: 21 / F (units (unknown) date) Date of Service: unknown) (unknown) (no (unknown) (unknown) Allergies (units (unkn own) date) unknown) (unknown) (no (unknown) (unknown) [place], [place] (units ( unknown) date) [id number] unknown) (unknown) (no (unknown) (unknown) Anxiety (units (unkno wn) date) unknown) (unknown) (no (unknown) (unknown) Assessment + (units (u nknown) date) Plan unknown) (unknown) (no (unknown) (unknown) Attending Dr: (units ( unknown) date) Wilbert TENA unknown) (unknown) (no (unknown) (unknown) BMI 31.4 (units (unkno wn) date) unknown) (unknown) (no (unknown) (unknown) BP 111/69 (units (unkn own) date) unknown) (unknown) (no (unknown) (unknown) Blood Pressure (units (unknown) date) Location Lt unknown) radial (unknown) (no (unknown) (unknown) Constipation (units (u nknown) date) unknown) (unknown) (no (unknown) (unknown) : 2000 (units (unknown) date) Acct:[id number] unknown) (unknown) (no (unknown) (unknown) Depression (units (unk nown) date) unknown) (unknown) (no (unknown) (unknown) Dept at (units (unkno wn) date) . unknown) (unknown) (no (unknown) (unknown) Details: (units (unkno wn) date) unknown) (unknown) (no (unknown) (unknown) Documented By: (units (unknown) date) Wilbert Brian unknown) 02/05/22 1637 (unknown) (no (unknown) (unknown) Draft (units (unkno wn) date) unknown) (unknown) (no (unknown) (unknown) Epigastric (units (unk nown) date) abdominal pain unknown) (unknown) (no (unknown) (unknown) Family Practice (units (unknown) date) Office Visit unknown) (unknown) (no (unknown) (unknown) [facility] unknown) (unknown) (no (unknown) (unknown) Folliculitis (units (u nknown) date) unknown) (unknown) (no (unknown) (unknown) GERD (units (unkno wn) date) (gastroesophageal unknown) reflux disease) (unknown) (no (unknown) (unknown) HPI (units (unkno wn) date) unknown) (unknown) (no (unknown) (unknown) Height 154.94 cm (units (unknown) date) unknown) (unknown) (no (unknown) (unknown) Injury of right (units (unknown) date) hand unknown) (unknown) (no (unknown) (unknown) Intake Note: (units (u nknown) date) unknown) (unknown) (no (unknown) (unknown) Intake performed (units (unknown) date) by: Faith Stern unknown) L (unknown) (no (unknown) (unknown) Intake (units (unkno wn) date) unknown) (unknown) (no (unknown) (unknown) Intake- Clincial (units (unknown) date) Staff unknown) (unknown) (no (unknown) (unknown) Loc: [facility] (units (unkno wn) date) unknown) (unknown) (no (unknown) (unknown) [id number] (units (unk nown) date) unknown) (unknown) (no (unknown) (unknown) Medical History (units (unknown) date) (Reviewed unknown) 02/01/22 @ 23:15 by Mimi Major MD) (unknown) (no (unknown) (unknown) Medications (units (un known) date) unknown) (unknown) (no (unknown) (unknown) Nausea (units (unkno wn) date) unknown) (unknown) (no (unknown) (unknown) Oxygen Delivery (units (unknown) date) Method room air unknown) (unknown) (no (unknown) (unknown) PFSH (units (unkno wn) date) unknown) (unknown) (no (unknown) (unknown) PTSD (units (unkno wn) date) (post-traumatic unknown) stress disorder) (unknown) (no (unknown) (unknown) Patient: (units (unkno wn) date) Joan Christy unknown) MR#: (unknown) (no (unknown) (unknown) Position Sitting (units (unknown) date) unknown) (unknown) (no (unknown) (unknown) Pulse 77 (units (unkno wn) date) unknown) (unknown) (no (unknown) (unknown) Pulse Oximetry (units (unknown) date) (%) 98 unknown) (unknown) (no (unknown) (unknown) Pulse Source (units (u nknown) date) Monitor unknown) (unknown) (no (unknown) (unknown) Reason For Visit (units (unknown) date) unknown) (unknown) (no (unknown) (unknown) Respiration 16 (units (unknown) date) unknown) (unknown) (no (unknown) (unknown) Signed By: (units (unk nown) date) unknown) (unknown) (no (unknown) (unknown) Smoking Status: (units (unknown) date) Former smoker unknown) (unknown) (no (unknown) (unknown) Splint #1 ea (units (u nknown) date) 08/01/21 [Rx unknown) Confirmed 02/05/22] (unknown) (no (unknown) (unknown) This note may (units ( unknown) date) have been all or unknown) partially generated using voice recognition (unknown) (no (unknown) (unknown) Tobacco + (units (unkn own) date) Substance Use unknown) (unknown) (no (unknown) (unknown) Tobacco Status (units (unknown) date) unknown) (unknown) (no (unknown) (unknown) Tobacco: How (units (u nknown) date) many years used: unknown) 5 (unknown) (no (unknown) (unknown) Visit Reasons: (units (unknown) date) Palpitations unknown) (unknown) (no (unknown) (unknown) Vitals (units (unkno wn) date) unknown) (unknown) (no (unknown) (unknown) Weight 75.466 kg (units (unknown) date) unknown) (unknown) (no (unknown) (unknown) age [age] (units (u nknown) date) felt like heart unknown) was going to jump out of chest. come and go. (unknown) (no (unknown) (unknown) alcohol intake: (units (unknown) date) current unknown) (unknown) (no (unknown) (unknown) every few days. (units (unknown) date) Patient also unknown) notes that she notes that at night when she is (unknown) (no (unknown) (unknown) faster and (units (unk nown) date) harder than unknown) usual. This lasts for about an hour. (unknown) (no (unknown) (unknown) have occurred. (units (unknown) date) If there are any unknown) questions, please contact the Medical Records (unknown) (no (unknown) (unknown) may occur. (units (unk nown) date) Occasional unknown) wrong-word or 'sound-alike' substitutions may have (unknown) (no (unknown) (unknown) metronidazole (units ( unknown) date) Allergy (Mild, unknown) Verified 02/05/22 16:41) (unknown) (no (unknown) (unknown) occurred due to (units (unknown) date) the inherent unknown) limitations of voice recognition software. Please (unknown) (no (unknown) (unknown) quit status: (units (u nknown) date) considering unknown) quitting (unknown) (no (unknown) (unknown) read the note (units ( unknown) date) carefully and unknown) recognize, using context, where these substitutions (unknown) (no (unknown) (unknown) relaxing (or (units (u nknown) date) even occasionally unknown) at work) she feels as though her heart beats (unknown) (no (unknown) (unknown) second hand (units (un known) date) exposure: Yes unknown) (father's home and when smoking in car w/ windows up. (unknown) (no (unknown) (unknown) software. (units (unkn own) date) Although every unknown) effort is made to edit content, email designer errors (unknown) (no (unknown) (unknown) started a year (units (unknown) date) ago. getting more unknown) freuent. (unknown) (no (unknown) (unknown) substance use (units ( unknown) date) type: does not unknown) use Result panel 85 (unknown) (no (unknown) (unknown) (no value) (units (unk nown) date) unknown) (unknown) (no (unknown) (unknown) 'lots of vomiting' (units (unknown) date) unknown) (unknown) (no (unknown) (unknown) (1) Palpitations: (units (unknown) date) unknown) (unknown) (no (unknown) (unknown) (2) Abnormal (units (u nknown) date) thyroid blood test: unknown) (unknown) (no (unknown) (unknown) ) (units (unkno wn) date) unknown) (unknown) (no (unknown) (unknown) 02/05/22 (units (unkno wn) date) unknown) (unknown) (no (unknown) (unknown) 16:42 (units (unkno wn) date) unknown) (unknown) (no (unknown) (unknown) 21 yo female (units (u nknown) date) presents today c/o unknown) palpitations that occur for a couple of seconds (unknown) (no (unknown) (unknown) 6 months. (units (unkn own) date) subclinical unknown) hyperthyroidism. (unknown) (no (unknown) (unknown) Abdominal pain (units (unknown) date) unknown) (unknown) (no (unknown) (unknown) Abdominal pain, (units (unknown) date) left upper quadrant unknown) (unknown) (no (unknown) (unknown) Age/Sex: 21 / F (units (unknown) date) Date of Service: unknown) (unknown) (no (unknown) (unknown) Allergies (units (unkn own) date) unknown) (unknown) (no (unknown) (unknown) [place], [place] (units ( unknown) date) [id number] unknown) (unknown) (no (unknown) (unknown) Anxiety (units (unkno wn) date) unknown) (unknown) (no (unknown) (unknown) Assessment + Plan (units (unknown) date) unknown) (unknown) (no (unknown) (unknown) Attending Dr: (units ( unknown) date) Wilbert TENA unknown) (unknown) (no (unknown) (unknown) BMI 31.4 (units (unkno wn) date) unknown) (unknown) (no (unknown) (unknown) BP 111/69 (units (unkn own) date) unknown) (unknown) (no (unknown) (unknown) Blood Pressure (units (unknown) date) Location Lt radial unknown) (unknown) (no (unknown) (unknown) Constipation (units (u nknown) date) unknown) (unknown) (no (unknown) (unknown) : 2000 (units (unknown) date) Acct:[id number] unknown) (unknown) (no (unknown) (unknown) Depression (units (unk nown) date) unknown) (unknown) (no (unknown) (unknown) Dept at (units (unkno wn) date) . unknown) (unknown) (no (unknown) (unknown) Details: (units (unkno wn) date) unknown) (unknown) (no (unknown) (unknown) Documented By: (units (unknown) date) Wilbert Brian unknown) 02/05/22 1637 (unknown) (no (unknown) (unknown) Draft (units (unkno wn) date) unknown) (unknown) (no (unknown) (unknown) Epigastric (units (unk nown) date) abdominal pain unknown) (unknown) (no (unknown) (unknown) Family Practice (units (unknown) date) Office Visit unknown) (unknown) (no (unknown) (unknown) [facility]) (unknown) (no (unknown) (unknown) Folliculitis (units (u nknown) date) unknown) (unknown) (no (unknown) (unknown) Free T3, (units (unkno wn) date) Triiodothyronine unknown) Free Today R79.89 - Other specified abnormal findings (unknown) (no (unknown) (unknown) GERD (units (unkno wn) date) (gastroesophageal unknown) reflux disease) (unknown) (no (unknown) (unknown) HPI (units (unkno wn) date) unknown) (unknown) (no (unknown) (unknown) Height 154.94 cm (units (unknown) date) unknown) (unknown) (no (unknown) (unknown) If the TSH is (units ( unknown) date) between 0.1 to 0.5 unknown) mU/L, observation alone is appropriate. We (unknown) (no (unknown) (unknown) Injury of right (units (unknown) date) hand unknown) (unknown) (no (unknown) (unknown) Intake Note: (units (u nknown) date) unknown) (unknown) (no (unknown) (unknown) Intake performed (units (unknown) date) by: Faith Stern unknown) (unknown) (no (unknown) (unknown) Intake (units (unkno wn) date) unknown) (unknown) (no (unknown) (unknown) Intake- Clincial (units (unknown) date) Staff unknown) (unknown) (no (unknown) (unknown) Loc: [facility] (units (unkno wn) date) unknown) (unknown) (no (unknown) (unknown) [id number] (units (unk nown) date) unknown) (unknown) (no (unknown) (unknown) Medical History (units (unknown) date) (Reviewed 02/01/22 unknown) @ 23:15 by Mimi Major MD) (unknown) (no (unknown) (unknown) Medications (units (un known) date) unknown) (unknown) (no (unknown) (unknown) Nausea (units (unkno wn) date) unknown) (unknown) (no (unknown) (unknown) Orders (units (unkno wn) date) unknown) (unknown) (no (unknown) (unknown) Orders: (units (unkno wn) date) unknown) (unknown) (no (unknown) (unknown) Oxygen Delivery (units (unknown) date) Method room air unknown) (unknown) (no (unknown) (unknown) PFSH (units (unkno wn) date) unknown) (unknown) (no (unknown) (unknown) PTSD (units (unkno wn) date) (post-traumatic unknown) stress disorder) (unknown) (no (unknown) (unknown) Patient: (units (unkno wn) date) Joan Christy unknown) MR#: (unknown) (no (unknown) (unknown) Position Sitting (units (unknown) date) unknown) (unknown) (no (unknown) (unknown) Pulse 77 (units (unkno wn) date) unknown) (unknown) (no (unknown) (unknown) Pulse Oximetry (%) (units (unknown) date) 98 unknown) (unknown) (no (unknown) (unknown) Pulse Source (units (u nknown) date) Monitor unknown) (unknown) (no (unknown) (unknown) Reason For Visit (units (unknown) date) unknown) (unknown) (no (unknown) (unknown) Respiration 16 (units (unknown) date) unknown) (unknown) (no (unknown) (unknown) Signed By: (units (unk nown) date) unknown) (unknown) (no (unknown) (unknown) Smoking Status: (units (unknown) date) Former smoker unknown) (unknown) (no (unknown) (unknown) Splint #1 ea (units (u nknown) date) 08/01/21 [Rx unknown) Confirmed 02/05/22] (unknown) (no (unknown) (unknown) This note may have (units (unknown) date) been all or unknown) partially generated using voice recognition (unknown) (no (unknown) (unknown) Tobacco + (units (unkn own) date) Substance Use unknown) (unknown) (no (unknown) (unknown) Tobacco Status (units (unknown) date) unknown) (unknown) (no (unknown) (unknown) Tobacco: How many (units (unknown) date) years used: 5 unknown) (unknown) (no (unknown) (unknown) Visit Reasons: (units (unknown) date) Palpitations unknown) (unknown) (no (unknown) (unknown) Vitals (units (unkno wn) date) unknown) (unknown) (no (unknown) (unknown) Weight 75.466 kg (units (unknown) date) unknown) (unknown) (no (unknown) (unknown) age 15 or 16 felt (units (unknown) date) like heart was unknown) going to jump out of chest. come and go. (unknown) (no (unknown) (unknown) alcohol intake: (units (unknown) date) current unknown) (unknown) (no (unknown) (unknown) every few days. (units (unknown) date) Patient also notes unknown) that she notes that at night when she is (unknown) (no (unknown) (unknown) faster and harder (units (unknown) date) than usual. This unknown) lasts for about an hour. (unknown) (no (unknown) (unknown) have occurred. If (units (unknown) date) there are any unknown) questions, please contact the Medical Records (unknown) (no (unknown) (unknown) lab will add on (units (unknown) date) free t3. if normal unknown) free t3, monitor tsh, free t3, free t4 every (unknown) (no (unknown) (unknown) may occur. (units (unk nown) date) Occasional unknown) wrong-word or 'sound-alike' substitutions may have (unknown) (no (unknown) (unknown) measure TSH, free (units (unknown) date) T4, and T3 every unknown) six months. (unknown) (no (unknown) (unknown) metronidazole (units ( unknown) date) Allergy (Mild, unknown) Verified 02/05/22 16:41) (unknown) (no (unknown) (unknown) nothing except for (units (unknown) date) thyroid test unknown) adding. NORMAL CV and thyroid exam today. f/u (unknown) (no (unknown) (unknown) occurred due to (units (unknown) date) the inherent unknown) limitations of voice recognition software. Please (unknown) (no (unknown) (unknown) of blood chemistry (units (unknown) date) unknown) (unknown) (no (unknown) (unknown) prn if wishes to (units (unknown) date) order monitor; unknown) declined for now. (unknown) (no (unknown) (unknown) quit status: (units (u nknown) date) considering unknown) quitting (unknown) (no (unknown) (unknown) read the note (units ( unknown) date) carefully and unknown) recognize, using context, where these substitutions (unknown) (no (unknown) (unknown) relaxing (or even (units (unknown) date) occasionally at unknown) work) she feels as though her heart beats (unknown) (no (unknown) (unknown) second hand (units (un known) date) exposure: Yes unknown) (father's home and when smoking in car w/ windows up. (unknown) (no (unknown) (unknown) software. Although (units (unknown) date) every effort is unknown) made to edit content, email designer errors (unknown) (no (unknown) (unknown) started a year (units (unknown) date) ago. getting more unknown) freuent. (unknown) (no (unknown) (unknown) substance use (units ( unknown) date) type: does not use unknown) Result panel 86 (unknown) (no (unknown) (unknown) (no value) (units (unk nown) date) unknown) (unknown) (no (unknown) (unknown) 'lots of vomiting' (units (unknown) date) unknown) (unknown) (no (unknown) (unknown) (1) Palpitations: (units (unknown) date) unknown) (unknown) (no (unknown) (unknown) (2) Abnormal (units (u nknown) date) thyroid blood test: unknown) (unknown) (no (unknown) (unknown) ) (units (unkno wn) date) unknown) (unknown) (no (unknown) (unknown) 02/05/22 1814 (units ( unknown) date) unknown) (unknown) (no (unknown) (unknown) 02/05/22 (units (unkno wn) date) unknown) (unknown) (no (unknown) (unknown) 16:42 (units (unkno wn) date) unknown) (unknown) (no (unknown) (unknown) 21 yo female (units (u nknown) date) presents today c/o unknown) palpitations that occur for a couple of seconds (unknown) (no (unknown) (unknown) 21-year-old female (units (unknown) date) presents for a unknown) visit to follow-up on recent ED visit for (unknown) (no (unknown) (unknown) Abdominal pain (units (unknown) date) unknown) (unknown) (no (unknown) (unknown) Abdominal pain, (units (unknown) date) left upper quadrant unknown) (unknown) (no (unknown) (unknown) Affect: normal (units (unknown) date) affect unknown) (unknown) (no (unknown) (unknown) Age/Sex: 21 / F (units (unknown) date) Date of Service: unknown) (unknown) (no (unknown) (unknown) All systems (units (un known) date) reviewed + are unknown) unremarkable except as noted in HPI and below (unknown) (no (unknown) (unknown) Allergies (units (unkn own) date) unknown) (unknown) (no (unknown) (unknown) [place], [place] (units ( unknown) date) [id number] unknown) (unknown) (no (unknown) (unknown) Anxiety (units (unkno wn) date) unknown) (unknown) (no (unknown) (unknown) Appearance: (units (un known) date) grossly normal unknown) (unknown) (no (unknown) (unknown) Assessment + Plan (units (unknown) date) unknown) (unknown) (no (unknown) (unknown) Attending Dr: (units ( unknown) date) Wilbert TENA unknown) (unknown) (no (unknown) (unknown) Attitude: (units (unkn own) date) cooperative unknown) (unknown) (no (unknown) (unknown) Auscultation: (units ( unknown) date) clear to unknown) auscultation bilaterally (unknown) (no (unknown) (unknown) BMI 31.4 (units (unkno wn) date) unknown) (unknown) (no (unknown) (unknown) BP 111/69 (units (unkn own) date) unknown) (unknown) (no (unknown) (unknown) Blood Pressure (units (unknown) date) Location Lt radial unknown) (unknown) (no (unknown) (unknown) Cardio (units (unkno wn) date) unknown) (unknown) (no (unknown) (unknown) Chief Complaint (units (unknown) date) unknown) (unknown) (no (unknown) (unknown) Chief Complaint: (units (unknown) date) Follow-up ED unknown) visit/palpitations/ thyroid concern (unknown) (no (unknown) (unknown) Cognition: normal (units (unknown) date) cognition unknown) (unknown) (no (unknown) (unknown) Const (units (unkno wn) date) unknown) (unknown) (no (unknown) (unknown) Constipation (units (u nknown) date) unknown) (unknown) (no (unknown) (unknown) : 2000 (units (unknown) date) Acct:[id number] unknown) (unknown) (no (unknown) (unknown) Depression (units (unk nown) date) unknown) (unknown) (no (unknown) (unknown) Dept at (units (unkno wn) date) . unknown) (unknown) (no (unknown) (unknown) Details: (units (unkno wn) date) unknown) (unknown) (no (unknown) (unknown) Documented By: (units (unknown) date) Wilbert Brian unknown) 02/05/22 1637 (unknown) (no (unknown) (unknown) Effort + (units (unkno wn) date) Inspection: normal unknown) respiratory effort (unknown) (no (unknown) (unknown) Epigastric (units (unk nown) date) abdominal pain unknown) (unknown) (no (unknown) (unknown) Exam (units (unkno wn) date) unknown) (unknown) (no (unknown) (unknown) Extrem (units (unkno wn) date) unknown) (unknown) (no (unknown) (unknown) Eyes (units (unkno wn) date) unknown) (unknown) (no (unknown) (unknown) Family Practice (units (unknown) date) Office Visit unknown) (unknown) (no (unknown) (unknown) [facility] unknown) (unknown) (no (unknown) (unknown) Folliculitis (units (u nknown) date) unknown) (unknown) (no (unknown) (unknown) Free T3, (units (unkno wn) date) Triiodothyronine unknown) Free Today R79.89 - Other specified abnormal findings (unknown) (no (unknown) (unknown) GERD (units (unkno wn) date) (gastroesophageal unknown) reflux disease) (unknown) (no (unknown) (unknown) Gait: normal gait (units (unknown) date) unknown) (unknown) (no (unknown) (unknown) General: (units (unkno wn) date) appearance normal, unknown) both eyes and all related structures (unknown) (no (unknown) (unknown) General: (units (unkno wn) date) cooperative, unknown) healthy appearing and no acute distress (unknown) (no (unknown) (unknown) General: no edema (units (unknown) date) unknown) (unknown) (no (unknown) (unknown) General: patient (units (unknown) date) alert, patient unknown) awake and patient oriented x3 (unknown) (no (unknown) (unknown) HPI (units (unkno wn) date) unknown) (unknown) (no (unknown) (unknown) Heart Sounds: S1 (units (unknown) date) normal, S2 normal, unknown) normal S1 and S2 and no murmurs (unknown) (no (unknown) (unknown) Height 154.94 cm (units (unknown) date) unknown) (unknown) (no (unknown) (unknown) If free T3 is (units ( unknown) date) normal will likely unknown) monitor with TSH, free T3, free T4 every 6 (unknown) (no (unknown) (unknown) Injury of right (units (unknown) date) hand unknown) (unknown) (no (unknown) (unknown) Intake Note: (units (u nknown) date) unknown) (unknown) (no (unknown) (unknown) Intake performed (units (unknown) date) by: Faith Stern unknown) (unknown) (no (unknown) (unknown) Intake (units (unkno wn) date) unknown) (unknown) (no (unknown) (unknown) Intake- Clincial (units (unknown) date) Staff unknown) (unknown) (no (unknown) (unknown) Judgment: judgment (units (unknown) date) good unknown) (unknown) (no (unknown) (unknown) Loc: [facility] (units (unkno wn) date) unknown) (unknown) (no (unknown) (unknown) Low TSH: Clinical (units (unknown) date) thyroid exam unknown) unremarkable. Probable subclinical (unknown) (no (unknown) (unknown) [id number] (units (unk nown) date) unknown) (unknown) (no (unknown) (unknown) Medical History (units (unknown) date) (Reviewed 02/05/22 unknown) @ 18:05 by DARINEL Oh) (unknown) (no (unknown) (unknown) Medications (units (un known) date) unknown) (unknown) (no (unknown) (unknown) Mental Status: (units (unknown) date) mental status unknown) grossly normal (unknown) (no (unknown) (unknown) Mood: congruent (units (unknown) date) mood unknown) (unknown) (no (unknown) (unknown) Nausea (units (unkno wn) date) unknown) (unknown) (no (unknown) (unknown) Neck (units (unkno wn) date) unknown) (unknown) (no (unknown) (unknown) Neck: normal (units (u nknown) date) visual inspection unknown) (unknown) (no (unknown) (unknown) Neuro (units (unkno wn) date) unknown) (unknown) (no (unknown) (unknown) No OTC (units (unkno wn) date) supplements. unknown) (unknown) (no (unknown) (unknown) Nutritional (units (un known) date) Appearance: average unknown) body habitus (unknown) (no (unknown) (unknown) Orders (units (unkno wn) date) unknown) (unknown) (no (unknown) (unknown) Orders: (units (unkno wn) date) unknown) (unknown) (no (unknown) (unknown) Oxygen Delivery (units (unknown) date) Method room air unknown) (unknown) (no (unknown) (unknown) PFSH (units (unkno wn) date) unknown) (unknown) (no (unknown) (unknown) PTSD (units (unkno wn) date) (post-traumatic unknown) stress disorder) (unknown) (no (unknown) (unknown) Palpitations: CV (units (unknown) date) exam in clinic unknown) unremarkable. We deferred repeat EKG since (unknown) (no (unknown) (unknown) Patient reports a (units (unknown) date) long history of unknown) various palpitation symptoms. States that (unknown) (no (unknown) (unknown) Patient: (units (unkno wn) date) Joan Christy unknown) MR#: (unknown) (no (unknown) (unknown) Plan (units (unkno wn) date) unknown) (unknown) (no (unknown) (unknown) Position Sitting (units (unknown) date) unknown) (unknown) (no (unknown) (unknown) Psych (units (unkno wn) date) unknown) (unknown) (no (unknown) (unknown) Pulse 77 (units (unkno wn) date) unknown) (unknown) (no (unknown) (unknown) Pulse Oximetry (%) (units (unknown) date) 98 unknown) (unknown) (no (unknown) (unknown) Pulse Source (units (u nknown) date) Monitor unknown) (unknown) (no (unknown) (unknown) ROS (units (unkno wn) date) unknown) (unknown) (no (unknown) (unknown) Rate: regular rate (units (unknown) date) unknown) (unknown) (no (unknown) (unknown) Reason For Visit (units (unknown) date) unknown) (unknown) (no (unknown) (unknown) Resp (units (unkno wn) date) unknown) (unknown) (no (unknown) (unknown) Respiration 16 (units (unknown) date) unknown) (unknown) (no (unknown) (unknown) Rhythm: regular (units (unknown) date) rhythm unknown) (unknown) (no (unknown) (unknown) She does not (units (un known) date) consume large unknown) amounts of caffeine and denies recreational drug use. (unknown) (no (unknown) (unknown) She has had a (units ( unknown) date) different palpation unknown) symptoms starting about 1 year ago in getting (unknown) (no (unknown) (unknown) Signed By: (units (unk nown) date) <Electronically unknown) signed by Wilbert Brian> (unknown) (no (unknown) (unknown) Signed (units (unkno wn) date) unknown) (unknown) (no (unknown) (unknown) Smoking Status: (units (unknown) date) Former smoker unknown) (unknown) (no (unknown) (unknown) Speech: speech (units (unknown) date) normal unknown) (unknown) (no (unknown) (unknown) Splint #1 ea (units (u nknown) date) 08/01/21 [Rx unknown) Confirmed 02/05/22] (unknown) (no (unknown) (unknown) TSH was mildly low (units (unknown) date) at the ED and was unknown) followed by FT4 test which patient never (unknown) (no (unknown) (unknown) This note may have (units (unknown) date) been all or unknown) partially generated using voice recognition (unknown) (no (unknown) (unknown) Thought Content: (units (unknown) date) normal unknown) (unknown) (no (unknown) (unknown) Thought Process: (units (unknown) date) normal unknown) (unknown) (no (unknown) (unknown) Thyroid: thyroid (units (unknown) date) normal unknown) (unknown) (no (unknown) (unknown) Tobacco + (units (unkn own) date) Substance Use unknown) (unknown) (no (unknown) (unknown) Tobacco Status (units (unknown) date) unknown) (unknown) (no (unknown) (unknown) Tobacco: How many (units (unknown) date) years used: 5 unknown) (unknown) (no (unknown) (unknown) Visit Reasons: (units (unknown) date) Palpitations unknown) (unknown) (no (unknown) (unknown) Vitals (units (unkno wn) date) unknown) (unknown) (no (unknown) (unknown) Weight 75.466 kg (units (unknown) date) unknown) (unknown) (no (unknown) (unknown) alcohol intake: (units (unknown) date) current unknown) (unknown) (no (unknown) (unknown) clear triggers. (units (unknown) date) She wondered unknown) whether it could be caused by anxiety but does (unknown) (no (unknown) (unknown) contact her with (units (unknown) date) results and unknown) recommendations. (unknown) (no (unknown) (unknown) deprivation, (units (u nknown) date) minimize stress, unknown) avoid use of caffeine/stimulants . Return to ED (unknown) (no (unknown) (unknown) did advise the (units (unknown) date) patient that I can unknown) not be sure whether the sinus arrhythmia seen (unknown) (no (unknown) (unknown) disorder. Thinks (units (unknown) date) her mother may have unknown) had thyroid disorder. Patient denies heat (unknown) (no (unknown) (unknown) dizziness. States (units (unknown) date) that she has unknown) difficulty describing exactly the sensation. (unknown) (no (unknown) (unknown) every few days. (units (unknown) date) Patient also notes unknown) that she notes that at night when she is (unknown) (no (unknown) (unknown) faster and harder (units (unknown) date) than usual. This unknown) lasts for about an hour. (unknown) (no (unknown) (unknown) feel like her (units ( unknown) date) ?heart is going to unknown) jump out of her chest?. There is no associated (unknown) (no (unknown) (unknown) for refractory (units (unknown) date) palpitations/chest unknown) pain/shortness of breath/severe dizziness or (unknown) (no (unknown) (unknown) have occurred. If (units (unknown) date) there are any unknown) questions, please contact the Medical Records (unknown) (no (unknown) (unknown) heard the results (units (unknown) date) of. She states that unknown) reason for follow-up today is primarily (unknown) (no (unknown) (unknown) hyperthyroidism (units (unknown) date) versus central unknown) hypothyroidism. We reviewed her labs from the ED (unknown) (no (unknown) (unknown) if she is still (units (unknown) date) experiencing unknown) symptoms most days. If she prefers we could also (unknown) (no (unknown) (unknown) indication to (units ( unknown) date) treat given the unknown) patient's age and lack of comorbidities. Will (unknown) (no (unknown) (unknown) intolerance. Does (units (unknown) date) have a history of unknown) anxiety which has not changed significantly (unknown) (no (unknown) (unknown) is just relaxing. (units (unknown) date) At the ED lab work unknown) was performed as was EKG. EKG showed (unknown) (no (unknown) (unknown) may occur. (units (unk nown) date) Occasional unknown) wrong-word or 'sound-alike' substitutions may have (unknown) (no (unknown) (unknown) metronidazole (units ( unknown) date) Allergy (Mild, unknown) Verified 02/05/22 16:41) (unknown) (no (unknown) (unknown) monitor; she (units (u nknown) date) declines for now. 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 She notes unknown) that at times, often at rest while relaxing, (unknown) (no (unknown) (unknown) normal EKG. (units (un known) date) Patient does note unknown) she has had some increase in stress recently and (unknown) (no (unknown) (unknown) note that this (units (unknown) date) symptom comes when unknown) she is not feeling anxious, such as when she (unknown) (no (unknown) (unknown) occurred due to (units (unknown) date) the inherent unknown) limitations of voice recognition software. Please (unknown) (no (unknown) (unknown) of blood chemistry (units (unknown) date) unknown) (unknown) (no (unknown) (unknown) on EKG at the ED (units (unknown) date) fully explains all unknown) of her palpitations symptoms. This being (unknown) (no (unknown) (unknown) other worrisome (units (unknown) date) symptoms. unknown) (unknown) (no (unknown) (unknown) over the past (units ( unknown) date) year. No insomnia unknown) or restlessness. (unknown) (no (unknown) (unknown) pain but feels it (units (unknown) date) is unsettling. No unknown) associated shortness of breath or (unknown) (no (unknown) (unknown) palpitations. (units ( unknown) date) unknown) (unknown) (no (unknown) (unknown) pathology. Advised (units (unknown) date) the patient that we unknown) could consider ordering a cardiac (unknown) (no (unknown) (unknown) quit status: (units (u nknown) date) considering unknown) quitting (unknown) (no (unknown) (unknown) read the note (units ( unknown) date) carefully and unknown) recognize, using context, where these substitutions (unknown) (no (unknown) (unknown) refer her to (units (u nknown) date) cardiology to unknown) eval/treat. In the meantime, counseled the patient (unknown) (no (unknown) (unknown) relaxing (or even (units (unknown) date) occasionally at unknown) work) she feels as though her heart beats (unknown) (no (unknown) (unknown) said, diagnostics (units (unknown) date) thus far are unknown) reassuring and there is no evidence of cardiac (unknown) (no (unknown) (unknown) second hand (units (un known) date) exposure: Yes unknown) (father's home and when smoking in car w/ windows up. (unknown) (no (unknown) (unknown) she feels that her (units (unknown) date) heart seems to unknown) speed up and beat faster and harder than (unknown) (no (unknown) (unknown) since age [age] (units (unknown) date) she has had brief unknown) episodes which last a couple of seconds and (unknown) (no (unknown) (unknown) sinus rhythm at (units (unknown) date) heart rate 70 with unknown) occasional sinus arrhythmias, otherwise (unknown) (no (unknown) (unknown) software. Although (units (unknown) date) every effort is unknown) made to edit content, email designer errors (unknown) (no (unknown) (unknown) substance use (units ( unknown) date) type: does not use unknown) (unknown) (no (unknown) (unknown) that her sleep (units (unknown) date) schedule has been unknown) irregular due to her work over the past month. (unknown) (no (unknown) (unknown) this was done (units ( unknown) date) earlier this week unknown) in the ED and patient denies any symptoms. I (unknown) (no (unknown) (unknown) to follow-up on (units (unknown) date) the thyroid unknown) concern. She denies personal history of thyroid (unknown) (no (unknown) (unknown) to maintain good (units (unknown) date) hydration, try to unknown) optimize sleep schedule/avoid sleep (unknown) (no (unknown) (unknown) usual, lasting for (units (unknown) date) about 1 hour. This unknown) is not triggered by exertion or any other (unknown) (no (unknown) (unknown) visit which showed (units (unknown) date) TSH of 0.210, free unknown) T4 normal at 1.37. Also noted that TSH (unknown) (no (unknown) (unknown) was previously (units (unknown) date) slightly lower, unknown) 0.078 on June 07, 2020. I have added free T3. (unknown) (no (unknown) (unknown) we will place (units ( unknown) date) order for cardiac unknown) monitor, potentially a 3 day Zio patch monitor Result panel 87 (unknown) (no date) (unknown) (unknown) 4.21 pg/ml (unkn own) (unknown) (no date) (unknown) (unknown) 4.21 pg/ml (unkn own) Social History date description facility 2022-01-02 00:00 Smokes tobacco daily (finding) [facility] 2022-01-04 00:00 Ex-smoker (finding) [facility] 2022-02-01 00:00 Ex-smoker (finding) [facility] 2022-02-05 00:00 Ex-smoker (finding) [facility] Vital Signs date measurement value units 2022-01-02 00:00 BMI 27.3 kg/m2 2022-01-02 00:00 BP_diastolic 53 mmHg 2022-01-02 00:00 BP_systolic 127 mmHg 2022-01-02 00:00 heart_rate 84 /min 2022-01-02 00:00 height_metric 154.94 cm 2022-01-02 00:00 height_standard 61 in 2022-01-02 00:00 o2_saturation 99 % 2022-01-02 00:00 respiration_rate 18 /min 2022-01-02 00:00 temperature_metric 36.78 C 2022-01-02 00:00 temperature_standard 98.2 F 2022-01-02 00:00 weight_metric 65.77 kg 2022-01-02 00:00 weight_standard 145 lb 2022-01-03 00:00 BMI 27.3 kg/m2 2022-01-03 00:00 height_metric 154.94 cm 2022-01-03 00:00 height_standard 61 in 2022-01-03 00:00 temperature_metric 37.11 C 2022-01-03 00:00 temperature_standard 98.8 F 2022-01-03 00:00 weight_metric 65.77 kg 2022-01-03 00:00 weight_standard 145 lb 2022-01-04 00:00 BP_diastolic 70 mmHg 2022-01-04 00:00 BP_systolic 117 mmHg 2022-01-04 00:00 heart_rate 84 /min 2022-01-04 00:00 o2_saturation 99 % 2022-01-04 00:00 respiration_rate 18 /min 2022-02-01 00:00 BMI 27.6 kg/m2 2022-02-01 00:00 height_metric 154.94 cm 2022-02-01 00:00 height_standard 61 in 2022-02-01 00:00 temperature_metric 35.89 C 2022-02-01 00:00 temperature_standard 96.6 F 2022-02-01 00:00 weight_metric 66.22 kg 2022-02-01 00:00 weight_standard 145.99 lb 2022-02-02 00:00 BP_diastolic 57 mmHg 2022-02-02 00:00 BP_systolic 122 mmHg 2022-02-02 00:00 heart_rate 85 /min 2022-02-02 00:00 o2_saturation 100 % 2022-02-02 00:00 respiration_rate 16 /min 2022-02-05 00:00 BMI 31.4 kg/m2 2022-02-05 00:00 BP_diastolic 69 mmHg 2022-02-05 00:00 BP_systolic 111 mmHg 2022-02-05 00:00 heart_rate 77 /min 2022-02-05 00:00 height_metric 154.94 cm 2022-02-05 00:00 height_standard 61 in 2022-02-05 00:00 o2_saturation 98 % 2022-02-05 00:00 respiration_rate 16 /min 2022-02-05 00:00 weight_metric 75.46 kg 2022-02-05 00:00 weight_standard 166.36 lb
[2022-03-29 22:30] LABS: BILIRUBIN,URINE NEGATIVE (NEGATIVE); GLUCOSE, URINE (UA) NEGATIVE (NEGATIVE); KETONES,URINE (UA) NEGATIVE (NEGATIVE); LEUKOCYTE ESTERASE, URINE NEGATIVE (NEGATIVE); NITRITE,URINE NEGATIVE (NEGATIVE); OCCULT BLOOD,URINE NEGATIVE (NEGATIVE); PROTEIN,URINE NEGATIVE (NEGATIVE); UROBILINOGEN,URINE 0.2 (NORMAL) E.U./dL (NORMAL)
[2022-03-29 22:30] LABS: BASOPHILS # (AUTO) 0.1 10^3/uL (0.0-0.1); BASOPHILS % (AUTO) 0.6 %; EOSINOPHILS # (AUTO) 0.2 10^3/uL (0.0-0.7); HGB - HEMOGLOBIN 13.8 g/dL (12.0-16.0); LYMPHOCYTES # (AUTO) 3.2 10^3/uL (1.5-3.5); LYMPHOCYTES % (AUTO) 30.8 %; MEAN CORPUSCULAR HEMOGLOBIN 28.5 pg (27.0-31.0); MEAN CORPUSCULAR HGB CONC 31.4 g/dL (32.0-36.0); MEAN CORPUSCULAR VOLUME 90.7 fL (81.0-99.0); MEAN PLATELET VOLUME 9.3 fL (7.9-10.8); MONOCYTES # (AUTO) 0.9 10^3/uL (0.0-1.0); MONOCYTES % (AUTO) 8.5 %; NEUTROPHILS # (AUTO) 6.1 10^3/uL (1.5-6.6); NEUTROPHILS % (AUTO) 57.9 %; PLT - PLATELET COUNT 303 10^3/uL (130-450); RED BLOOD COUNT 4.85 10^6/uL (4.20-5.40); RED CELL DISTRIBUTION WIDTH 12.1 % (12.0-15.0); WHITE BLOOD COUNT 10.5 x10^3/uL (4.8-10.8)
[2022-03-29 22:32] LABS: CLARITY,URINE CLEAR (CLEAR)
[2022-03-29 22:33] LABS: HCG UR QUAL NEGATIVE
--- NOTE | 2022-03-29 22:35 | ED Physician Documentation ---
PD HPI GI BLEED - Stated complaint Stated Complaint: BLOOD IN STOOL - Chief complaint Chief Complaint: Abd Pain - History obtained from History obtained from: Patient - History of Present Illness Timing - onset: How many hours ago (2) Timing - details: Abrupt onset Associated symptoms: BRBPR, Abdominal pain Recently seen: Not recently seen - Additional information Additional information: HPI from patient. 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 Has not had hematochezia/BRBPR before and only has had the one episode tonight. She continues to have generalized abdominal cramping and pain, most pronounced across lower abdomen. Denies fever, nausea, vomiting. No exacerbating nor ameliorating factors. Review of Systems Constitutional: denies: Fever GI: reports: Abdominal Pain. 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, Other : None HEENT: None Psych: Anxiety Musculoskeletal: None Derm: None - Past Surgical History Past Surgical History: Yes Ortho: Other - Present Medications Home Medications: Ambulatory Orders Medication Instructions Recorded Confirmed No Known Home Medications 03/07/20 06/24/21 - Allergies Allergies/Adverse Reactions: Allergies Allergy/AdvReac Type Severity Reaction Status Date / Time metronidazole [From Flagyl] Allergy Emesis Verified 03/29/22 21:30 - Social History Does the pt smoke?: Yes Smoking Status: Current every day smoker Does the pt drink ETOH?: Yes Does the pt have substance abuse?: No - Immunizations Immunizations are current?: No Immunizations: Other immun not current - POLST Patient has POLST: No PD ED PE NORMAL - Vitals Vital signs reviewed: Yes - General General: Alert and oriented X 3, No acute distress, Well developed/nourished - Cardiac Cardiac: RRR, No murmur - Respiratory Respiratory: No respiratory distress, Clear bilaterally - Abdomen Abdomen: Soft, Non distended, Other (mild-moderate TTP across lower abdomen without rebound or guarding) - Back Back: No CVA TTP Results - Vitals Vitals: Vital Signs - 24 hr 03/30/22 01:45 Heart Rate 94 Respiratory 17 Rate Blood Pressure 114/70 O2 Saturation 99 Oxygen O2 Source Room air - Labs Labs: Laboratory Tests 03/29/22 03/29/22 03/29/22 22:15 22:15 22:21 WBC 10.5 RBC 4.85 Hgb 13.8 Hct 44.0 MCV 90.7 MCH 28.5 MCHC 31.4 L RDW 12.1 Plt Count 303 MPV 9.3 Neut # (Auto) 6.1 Lymph # (Auto) 3.2 [place] # (Auto) 0.9 Eos # (Auto) 0.2 Baso # (Auto) 0.1 Absolute Nucleated RBC 0.00 Nucleated RBC % 0.0 Sodium 137 Potassium 3.4 L Chloride 104 Carbon Dioxide 24 Anion Gap 9.0 BUN 12 Creatinine 0.5 Estimated GFR (MDRD) 156 Glucose 94 Calcium 8.9 Total Bilirubin 2.3 H AST 21 ALT 19 Alkaline Phosphatase 77 Total Protein 8.1 Albumin 4.4 Globulin 3.7 Albumin/Globulin Ratio 1.2 Lipase 35 Urine Color YELLOW Urine Clarity CLEAR Urine pH 6.0 Ur Specific [place] 1.020 Urine Protein NEGATIVE Urine Glucose (UA) NEGATIVE Urine Ketones NEGATIVE Urine Occult Blood NEGATIVE Urine Nitrite NEGATIVE Urine Bilirubin NEGATIVE Urine Urobilinogen 0.2 (NORMAL) Ur Leukocyte Esterase NEGATIVE Ur Microscopic Review NOT INDICATED Urine Culture Comments NOT INDICATED Urine HCG, Qual NEGATIVE - Rads (name of study) CT A/P with IV contrast Radiology: Prelim report reviewed, See rad report PD Medical Decision Making - ED course Complexity details: reviewed results, re-evaluated patient, considered differential, d/w patient ED course: Tests ordered and results reviewed by me: CBC, ER abdominal panel, UA and urine HCG. There are no concerning findings on the blood tests; mildly elevated bilirubin (2.3) noted with otherwise normal LFTs; this represents a slight increase over value of 2.0 two years ago. This is an incidental finding. Her UA is normal , UHCG negative. CT A/P shows left ovarian cyst , 4.1 cm diameter; patient indicates she is aware she has a left ovarian cyst and thus this is apparently not a new finding. CT also shows mild diverticulosis; this would be a new diagnosis for her. While there is no evidence of diverticulitis, the BRBPR could be due to a bleeding diverticulum. She did not have any episodes of bleeding during ED stay. Return precautions discussed, advised to follow up with primary care provider for reevaluation Departure - Departure Disposition: Home, Self Care Clinical Impression: Lower GI bleed Condition: Good Instructions: ED Hematochezia Stable, ED Diverticulosis Follow-Up: Wilbert Brian ARNP [Primary Care Provider] - Comments: There were no concerning findings on the blood tests performed tonight. There were no concerning findings on the CT of your abdomen and pelvis, as well. There was a left ovarian cyst measuring 4.1 cm, but you have indicated that you are aware of this and thus this is suspected to not be a new finding. There is no evidence of appendicitis or any other acute process, no explanation on tonight's tests to explain your symptoms. As we discussed, there was evidence on the CAT scan of mild diverticulosis of the colon; it is possible that the bleeding is coming from one or more of these diverticula. I recommend that you follow-up with your primary care provider, call in the morning to arrange for next available appointment. Further testing might be needed if your symptoms continue. Your primary care provider might recommend further testing even if the symptoms do not continue. Discharge Date/Time: 03/30/22 01:46
[2022-03-29 22:42] LABS: ALBUMIN 4.4 g/dL (3.2-5.5); ALBUMIN/GLOBULIN RATIO 1.2 (1.0-2.2); BILIRUBIN,TOTAL 2.3 mg/dL (0.2-1.0); CALCIUM 8.9 mg/dL (8.5-10.3); CREATININE 0.5 mg/dL (0.4-1.0); POTASSIUM 3.4 mmol/L (3.5-5.0); TOTAL PROTEIN 8.1 g/dL (6.7-8.2)
[2022-03-29] MEDS ORDERED: iohexoL-300 100 ML VIAL ONE (22:45)
[2022-03-29] MEDS ORDERED: iohexoL-300 100 ML VIAL IVP ONE (23:59)
--- NOTE | 2022-03-30 00:03 | CT Report ---
PROCEDURE: ABDOMEN/PELVIS W INDICATIONS: pain across lower abdomen, hematochezia CONTRAST: Omni 300 100ml TECHNIQUE: After the administration of intravenous contrast, 5 mm thick sections acquired from the diaphragms to the symphysis. 5 mm thick coronal and sagittal reformats were acquired. For radiation dose reducti on, the following was used: automated exposure control, adjustment of mA and/or kV according to jose guadalupe ent size. COMPARISON: None. FINDINGS: Image quality: Excellent. Lung bases: Unremarkable. Heart: Heart is normal in size. ABDOMEN: Liver: No mass lesion. Gallbladder: Within normal limits without calcified gallstones. Biliary ducts: No biliary ductal dilatation. Pancreas: Unremarkable. Spleen: Normal in size. Adrenal Glands: No adrenal nodules. Kidneys and Ureters: No hydronephrosis. Stomach and Bowel: Stomach, small bowel loops, and colon are normal in caliber and wall thickness. T he appendix is normal in appearance. There is mild colonic diverticulosis without acute diverticuliti s. Peritoneum: No abnormal intraperitoneal fluid. No free air. Ventral Wall: No hernia. Abdominal Nodes: No retroperitoneal or mesenteric adenopathy by size criteria. Vessels: Aorta and inferior vena cava are normal in size. PELVIS: Pelvic Organs:There is a left ovarian cyst measuring up to 4.1 cm. Left ovary appears enlarged. Righ t ovary and uterus appear within normal size limits.. Bladder: Unremarkable. Pelvic Nodes: No enlarged lymph nodes. Miscellaneous: No inguinal hernias. Bones: Visualized osseous structures demonstrate no suspicious lesions. IMPRESSION: 1. No evidence of appendicitis. 2. Enlargement of the left ovary with a left ovarian cyst measuring up to 4.1 cm. The finding is nons pecific and if indicated further evaluation may be obtained with a pelvic ultrasound. 3. Mild colonic diverticulosis without acute diverticulitis. Reviewed by: Ambrose Matthews MD on 03/30/2022 12:02 AM [facility] Approved by: Ambrose Matthews MD on 03/30/2022 12:02 AM PST Station ID: [id number]
[2022-03-30 01:46] VITALS: BP 114/70
== END 2022-03-30 01:46 | disposition home or self-care (01) ==
LOC: ED 21:26
DX: K57.31 Diverticulosis of large intestine without perforation or abscess with bleeding (principal)
CPT/HCPCS: 36415; 74177; 80053; 81003; 81025; 83690; 85025; 99284; Q9967; 81001; 87086